=== PATIENT | male | born 1950 | race Caucasian/White ===

== ENCOUNTER → 2017-08-01 | Outpatient (CLI) | payer OTHER ==
[2017-08-01 20:12] LABS: ALT 37 U/L (21-72); AST 27 U/L (17-59); Alkaline Phosphatase 119 U/L (38-126); Anion Gap 12 mmol/L; Blood Urea Nitrogen 15 mg/dL (9-20); Calcium 9.6 mg/dL (8.4-10.2); Carbon Dioxide 23 mmol/L (22-30); Chloride 104 mmol/L (98-107); Cholesterol 233 mg/dL (<200); Glucose 92 mg/dL (74-99); HDL Cholesterol 42 mg/dL (40-60); Non-African American GFR(MDRD) >60 (>60 ml/min/1.73 sqM); Potassium 4.6 mmol/L (3.5-5.1); Sodium 139 mmol/L (137-145); Total Bilirubin 0.7 mg/dL (0.2-1.3); Total Protein 7.1 g/dL (6.3-8.2)
== END ==
LOC: MMGSC 09:52
PROVIDERS: ATTEND Family Medicine
DX: E87.5 Hyperkalemia (principal); E78.00 Pure hypercholesterolemia, unspecified
CPT/HCPCS: 36415; 80053; 80061

== ENCOUNTER → 2019-04-18 | Outpatient (CLI) | payer MEDICARE ==
--- NOTE | 2019-04-19 13:50 | ECHOF ---
Referral Reason:R01.1 Cardiac murmur, unspecified MEASUREMENTS -------- HEIGHT: 172.7 cm WEIGHT: 97.5 kg BP: IVSd: 1.2 cm (0.6 - 1.1) LVIDd: 3.8 cm (3.9 - 5.3) LVPWd: 1.4 cm (0.6 - 1.1) IVSs: 1.5 cm LVIDs: 2.2 cm LVPWs: 2.0 cm LAESV Index (A-L): 24.99 ml/m Ao Diam: 2.9 cm (2.0 - 3.7) AV Cusp: 1.4 cm (1.5 - 2.6) LA Diam: 2.1 cm (2.7 - 3.8) EPSS: 1.6 cm MV E Koffi: 0.85 m/s MV DecT: 329 ms MV A Koffi: 1.03 m/s MV E/A Ratio: 0.82 AR PHT: 435 ms RAP: 5.00 mmHg RVSP: 36.70 mmHg MV EF SLOPE: 104.15 mm/s (70 - 150) MV EXCURSION: 1.59 cm (> 18.000) FINDINGS -------- Sinus rhythm. This was a technically adequate study. The left ventricular size is normal. There is mild concentric left ventricular hypertrophy. Overa ll left ventricular systolic function is normal with, an EF between 55 - 60 %. The right ventricle is normal in size. The left atrial size is normal. The right atrial size is normal. Interatrial and interventricular septum intact. The aortic valve is trileaflet and appears structurally normal. Trace amount of aortic regurgitatio n. The mitral valve is normal. There is trace mitral regurgitation. Mild tricuspid regurgitation present. There is mild pulmonary hypertension. The right ventricular systolic pressure, as measured by Doppler, is 36.70mmHg. There is no pulmonic regurgitation present. The aortic root size is normal. The inferior vena cava was not well visualized. There is no pericardial effusion. CONCLUSIONS -------- 1. Sinus rhythm. 2. This was a technically adequate study. 3. The left ventricular size is normal. 4. There is mild concentric left ventricular hypertrophy. 5. Overall left ventricular systolic function is normal with, an EF between 55 - 60 %. 6. The right ventricle is normal in size. 7. The left atrial size is normal. 8. The right atrial size is normal. 9. Interatrial and interventricular septum intact. 10. The aortic valve is trileaflet and appears structurally normal. 11. Trace amount of aortic regurgitation. 12. The mitral valve is normal. 13. There is trace mitral regurgitation. 14. Mild tricuspid regurgitation present. 15. There is mild pulmonary hypertension. 16. The right ventricular systolic pressure, as measured by Doppler, is 36.70mmHg. 17. There is no pulmonic regurgitation present. 18. The aortic root size is normal. 19. The inferior vena cava was not well visualized. 20. There is no pericardial effusion. BUS ESCORT: Roxana Shi RDCS
== END | disposition home or self-care (01) ==
LOC: RADECHMAIN 13:04
PROVIDERS: ATTEND Family Medicine
DX: I07.1 Rheumatic tricuspid insufficiency (principal); I27.20 Pulmonary hypertension, unspecified
CPT/HCPCS: 93306

== ENCOUNTER → 2020-11-05 | Outpatient (CLI) | payer MEDICARE ==
--- NOTE | 2020-11-05 15:16 | CTL ---
EXAMINATION TYPE: CT Low Dose Lung DATE OF EXAM ORDERED: 11/05/2020 HISTORY: Personal history of tobacco use, nicotine. Lung cancer screening CT DLP: 126.[address] CTDI: 3.3 mGy Automated exposure control for dose reduction was used. SCREENING VISIT: Initial COMPARISON: None TECHNIQUE: Low dose computed tomography scan was performed through the chest at 1 mm thick sections a nd reconstructed images in the coronal plane at [address] DIAGNOSTIC QUALITY: Satisfactory FINDINGS: LUNG NODULES: Present, detailed below: There is an irregular density in the right middle lobe measuring 2.2 x 1.7 cm. Series 4 image 204 thi s area is suspicious and PET CT is recommended for additional workup. LUNGS: COPD: Severity: None Fibrosis: Severity: None Lymph nodes: There is a 1.0 cm pretracheal lymph node present. Other findings: None RIGHT PLEURAL SPACE: Effusion: None Calcification: None Thickening: None Pneumothorax: None LEFT PLEURAL SPACE: Effusion: None Calcification: None Thickening: None Pneumothorax: None HEART: Heart Size: Normal Coronary calcification: Mild to moderate Pericardial effusion: None OTHER FINDINGS: Upper abdomen: Cholelithiasis Bony thorax: Normal Supraclavicular region: Normal Other: Ascending thoracic aorta at the level the main pulmonary artery measures 3.9 cm. The main pul monary artery at the bifurcation measures 2.2 cm. IMPRESSION: 1. No suspicious spiculated mass right middle lobe. 2. Enlarged 1.0 cm lymph node pretracheal space FOLLOW UP CT CHEST RECOMMENDATION: PET/CT recommended for additional workup for possible neoplasm. CT LUNG RAD: 4B
== END | disposition home or self-care (01) ==
LOC: RADCTMAIN 13:51
PROVIDERS: ATTEND Family Medicine
DX: Z12.2 Encounter for screening for malignant neoplasm of respiratory organs (principal); F17.210 Nicotine dependence, cigarettes, uncomplicated

== ENCOUNTER → 2020-12-04 | Outpatient (CLI) | payer MEDICARE ==
--- NOTE | 2020-12-07 07:41 | PE ---
EXAMINATION TYPE: PET CT fusion skull to thigh DATE OF EXAM: 12/04/2020 COMPARISON: CT low-dose lung screening CT November 05, 2020 HISTORY: Solitary pulmonary nodule, abnormal CT. TECHNIQUE: Following the intravenous administration of 10.414 mCi of F-18 FDG, whole body images are performed from the skull base to the midthigh. Images are reviewed on the computer in the coronal, axial, and sagittal planes. Reconstructed rotating images are created on independent workstation and reviewed on the computer. A localization and attenuation correction CT is performed in conjunction with the PET scan. Blood glucose level equals 101 SCAN: Initial Scan FINDINGS: SKULL BASE AND NECK: No areas of suspicious hypermetabolic uptake. CHEST, MEDIASTINUM, AND HILAR REGION: Corresponding to recent CT there is persistent area of nodule o r nodular consolidation measuring 1.8 x 1.6 cm axial image 103, the area is ametabolic and low dense. Significant respiratory motion artifact degradation. No suspicious hypermetabolic uptake. ABDOMEN AND PELVIS: No adrenal masses. No suspicious hypermetabolic uptake. OSSEOUS STRUCTURES: No suspicious hypermetabolic uptake. OTHER CT: Moderate to severe calcified plaque bilateral carotid bulb level right greater than left, c onsider carotid ultrasound follow-up. At least moderate 3 vessel coronary artery calcification with possible stent in the right coronary ar cas distribution. Significant bilateral subareolar gynecomastia. Dependent small gallstone in gallbladder. Scattered diverticula in the left and sigmoid colon. Modera te calcified plaque of the abdominal aorta extends into iliac branch vessels. Enlarged prostate gland consistent with BPH. Moderate disc space narrowing and vacuum disc phenomenon L5-S1 level. IMPRESSION: No suspicious hypermetabolic uptake. Consider short term CT follow-up in 6-12 months time to document stability of 1.7 cm nodule or nodular consolidation right middle lobe.
== END | disposition home or self-care (01) ==
LOC: RADPETMAIN 14:06
PROVIDERS: ATTEND Family Medicine
DX: R91.1 Solitary pulmonary nodule (principal); R91.8 Other nonspecific abnormal finding of lung field
CPT/HCPCS: 78815; A9552

== ENCOUNTER → 2021-06-04 | Outpatient (CLI) | payer MEDICARE ==
[2021-06-04 10:25] LABS: African American GFR (CKD) >90 (>60 ml/min/1.73 sqM); Blood Urea Nitrogen 16 mg/dL (9-20); Non-African American GFR(CKD) >90 (>60 ml/min/1.73 sqM)
--- NOTE | 2021-06-04 12:04 | CT ---
EXAMINATION TYPE: CT chest w con DATE OF EXAM: 06/04/2021 COMPARISON: 12/04/2020 HISTORY: Pulmonary Nodule CT DLP: 538 mGycm Automated exposure control for dose reduction was used. TECHNIQUE: CT scan of the chest is performed with IV Contrast, patient injected with 100 mL of Isovue 300. MIP Images are created on CT scanner and reviewed. 3D reconstructed images are created on an independent workstation and reviewed. FINDINGS: LUNGS: There is a 1.8 x 1.4 cm right middle lobe lung mass. Previously measured 1.8 x 1.6 cm. MEDIASTINUM: There are no greater than 1 cm hilar or mediastinal lymph nodes. No pericardial effusi on is seen. Coronary artery calcification noted. OTHER: Bilateral gynecomastia noted. Hypertrophic and degenerative change of the spine. IMPRESSION: 1. Stable 1.8 x 1.4 cm lobulated nodule in the right middle lobe unchanged from prior exam.
== END | disposition home or self-care (01) ==
LOC: RADCTMAIN 09:42
PROVIDERS: ATTEND Family Medicine
DX: R91.1 Solitary pulmonary nodule (principal)
CPT/HCPCS: 82565; 84520; 71260; 36415; Q9967

== ENCOUNTER 2023-06-02 12:52 | Day surgery (SDC) | payer MEDICARE ==
[2023-05-31 15:31] VITALS: BMI 25.0
[2023-06-02] MEDS ORDERED: LACTATED RINGERS 1,000 ML IV SCH (13:28)
[2023-06-02] MEDS ORDERED: LACTATED RINGERS 1,000 ML IV ONE (13:38)
[2023-06-02 13:44] VITALS: TEMP 97
[2023-06-02] MEDS ORDERED: LIDOCAINE 2% INJ 20 MG/ML (2 ML VIAL) ONE (15:08)
[2023-06-02] MEDS ORDERED: PROPOFOL 10 MG/ML 20 ML VIAL IV ONE (15:08)
--- NOTE | 2023-06-02 15:24 | P.PCN ---
Date of Procedure: 06/02/23 Procedure(s) Performed: BRIEF HISTORY: Patient is a 72-year-old pleasant white male scheduled for an elective colonoscopy as a part of evaluation of prior history of colon polyps. PROCEDURE PERFORMED: Colonoscopy. PREOPERATIVE DIAGNOSIS: History of colon polyps. IV sedation per Anesthesia. PROCEDURE: After informed consent was obtained, the patient, was brought into the endoscopy unit. IV sedation was administered by Anesthesia under continuous monitoring. Digital rectal examination was normal. Initially the Olympus CF-160 flexible video colonoscope was then inserted in the rectum, gradually advanced into the cecum without any difficulty. Careful examination was performed as the scope was gradually being withdrawn. Ileocecal valve and the appendiceal orifice were visualized and appeared normal. Prep was excellent. Mucosa of the cecum, ascending colon, transverse colon, descending colon, sigmoid colon, and rectum appeared normal. Scattered sigmoid diverticulosis. Retroflexion was performed in the rectum and grade 2 internal hemorrhoids were seen. The patient tolerated the procedure well. IMPRESSION: Normal-appearing colon from rectum to cecum with no evidence of colorectal neoplasia Scattered small diverticulosis Small internal hemorrhoids. RECOMMENDATIONS: Findings of this examination were discussed with the patient as well as his family. He was advised to be a high-fiber diet and take fiber supplements a regular basis. Recommend repeat screening colonoscopy in 10 y ears..
[2023-06-02 15:48] VITALS: BP 130/77; PULSE 98; RESP 16
== END 2023-06-02 16:32 | disposition home or self-care (01) ==
LOC: ORWHC2ENDO 12:52
PROVIDERS: ATTEND Internal Medicine Gastroenterology
DX: Z12.11 Encounter for screening for malignant neoplasm of colon (principal); Z86.010 Personal history of colon polyps; K57.30 Diverticulosis of large intestine without perforation or abscess without bleeding; K64.1 Second degree hemorrhoids; I10 Essential (primary) hypertension; E78.5 Hyperlipidemia, unspecified; F17.200 Nicotine dependence, unspecified, uncomplicated; N42.9 Disorder of prostate, unspecified; Z79.82 Long term (current) use of aspirin; Z79.899 Other long term (current) drug therapy
CPT/HCPCS: 45378; J2704; J2001

== ENCOUNTER → 2023-08-24 | Outpatient (CLI) | payer MEDICARE ==
--- NOTE | 2023-08-24 14:11 | CTL ---
EXAMINATION TYPE: CT Low Dose Lung DATE OF EXAM ORDERED: 08/24/2023 HISTORY: . Lung cancer screening CT DLP: 86.[address] CTDI: 2.1 mGy Automated exposure control for dose reduction was used. SCREENING VISIT: COMPARISON: The 2521, 06/04/2021, 11/05/2020 TECHNIQUE: Low dose computed tomography scan was performed through the chest at 1 mm thick sections a nd reconstructed images in multiple planes at 1 mm and [address] DIAGNOSTIC QUALITY: Satisfactory FINDINGS: There is a 2 mm subpleural right apical lung nodule stable. Within the right upper lobe on axial image 162 series 4 there is a 2. There is an area of 7 mm linear density right upper lobe stable from prior exam. There remains a partially cystic nodular density right middle lobe measuring 2 x 1.7 cm. No pleural effusion or focal pneumonia. No pneumothorax. Mild basilar bronchiectasis. Assessment for adenopathy limited by noncontrast technique. No obvious pathologic adenopathy. Mild emphysematous changes are stable. Atherosclerotic change of the aorta with no evidence of aneurysm. There is mild coronary artery calci fication. Cholelithiasis noted. Hypertrophic and degenerative changes of the spine. Small hiatal hernia. Bilate ral gynecomastia. IMPRESSION: 1. Stable 2 x 1.7 cm lobulated nodule right middle lobe unchanged from multiple prior exams. Nodules noted to be ametabolic previous PET CT scan 12/10. Recommend annual follow-up in 12 months low-dose sc reening CT scan. 2. Stable emphysematous changes. 3. Cholelithiasis. 4. Small hiatal hernia. 5. Coronary artery calcification. CT LUNG RAD AND CT CHEST RECOMMENDATION: Lung-Rad 2 Benign Appearance or Behavior: Continue annual sc reening with LDCT in 12 months.
== END | disposition home or self-care (01) ==
LOC: RADCTMAIN 12:31
PROVIDERS: ATTEND Family Medicine
DX: Z12.2 Encounter for screening for malignant neoplasm of respiratory organs (principal); F17.210 Nicotine dependence, cigarettes, uncomplicated; J43.9 Emphysema, unspecified; K80.20 Calculus of gallbladder without cholecystitis without obstruction; K44.9 Diaphragmatic hernia without obstruction or gangrene; I25.10 Atherosclerotic heart disease of native coronary artery without angina pectoris; R91.8 Other nonspecific abnormal finding of lung field
CPT/HCPCS: 71271

== ENCOUNTER → 2024-09-03 | Outpatient (CLI) | payer MEDICARE ==
--- NOTE | 2024-09-05 14:56 | CTL ---
EXAMINATION TYPE: CT Low Dose Lung DATE OF EXAM ORDERED: 09/03/2024 HISTORY: Nicotine dependence, current smoker, 44 pack-year history. Lung cancer screening CT DLP: 112.[address] CTDI: 3.00 mGy Automated exposure control for dose reduction was used. SCREENING VISIT: Fourth screening visit COMPARISON: CT Low Dose Lung 08/24/2023, 07/14/2022, 11/05/2020, PET CT 12/04/2020, CT chest 06/04/2021. TECHNIQUE: Low dose computed tomography scan was performed through the chest at 1 mm thick sections a nd reconstructed images in multiple planes at 1 mm and [address] DIAGNOSTIC QUALITY: Satisfactory FINDINGS: Nodules: Development of spiculated right middle lobe mass measuring 4.0 x 3.7 cm abutting the right major fiss ure (series 6, image 40). Previously cystic and nodular appearance measuring 2 x 1.7 cm. Stable subpl eural right apical 2 mm pulmonary nodule (series 6, image 23). Stable right upper lobe linear pulmonary density on the minor fissure. Favored to represent an intraf issural lymph node (series 6, image 34). LUNGS: COPD: Severity: Mild Fibrosis: Severity: None Lymph nodes: Stable right carinal 9 mm short axis lymph node (series 5 image 24). Other findings: None RIGHT PLEURAL SPACE: Effusion: None Calcification: None Thickening: None Pneumothorax: None LEFT PLEURAL SPACE: Effusion: None Calcification: None Thickening: None Pneumothorax: None HEART: Heart Size: Normal Coronary Calcification: Mild Pericardial Effusion: None OTHER FINDINGS: Upper abdomen: Tiny hiatal hernia. Cholelithiasis. Bony thorax: Hypertrophic and degenerative changes of the spine. Supraclavicular region: None Other: Moderate bilateral gynecomastia. IMPRESSION: Development of spiculated right middle lobe mass measuring 4.0 x 3.7 cm abutting the right major fiss ure. Previously 2 x 1.7 cm and partially cystic. Highly suspicious for primary lung malignancy until proven otherwise. Remaining nodules are stable. CT LUNG RAD AND CT CHEST RECOMMENDATION: Lung-Rad 4B or 4X Very Suspicious: Follow-up Chest CT with o r without contrast or PET/CT and/or tissue sampling. PET/CT may be used when there is a > 8 mm solid component. S Modifier (other clinically significant findings): None [facility], , 09/05/2024 12:22 PM
== END ==
LOC: RADCTMAIN 07:48
PROVIDERS: ATTEND Family Medicine
CPT/HCPCS: 71271

== ENCOUNTER → 2024-09-27 | Outpatient (CLI) | payer MEDICARE ==
--- NOTE | 2024-09-29 14:14 | PE ---
EXAMINATION TYPE: PET CT fusion skull to thigh DATE OF EXAM: 09/27/2024 CLINICAL INDICATION:Male, 74 years old with history of R91.8 LUNG MASS; TECHNIQUE: Following the intravenous administration of 11.25 mCi of F-18 FDG, whole body images are performed from the skull base to the midthigh. Images are reviewed on the computer in the coronal, axial, and sagittal planes. Reconstructed rotating images are created on independent workstation and reviewed on the computer. A non-contrast CT is performed in conjunction with the PET scan. Glucose level 95 mg/dL CT DLP: 466.97 mGycm, Automated exposure control for dose reduction was used. COMPARISON: CT 09/03/2024, PET/CT None, MRI: None FINDINGS: Mediastinal SUV mean is 2.1. Hepatic parenchyma SUV mean is 2.4. SKULL BASE AND NECK: * Left parotid gland lesion max SUV 15.5. * Small lesion in the right parotid gland also possible measuring Max SUV 3.4. * Measurements of the prior lesions are difficult without IV contrast * The lower left-sided uptake within the left neck max SUV 4.9. * Asymmetric uptake within the fossa of Rosenmuller./Posterior lateral pharyngeal recess max SUV 4.5 . CHEST, MEDIASTINUM, AND HILAR REGION: * Right upper lung mass measuring 34 x 29 mm Max SUV 21.7 * FDG avid right perihilar lymph nodes max SUV 4.3 measurements difficult without IV contrast. * Subcarinal lymph node max SUV 4.1. r measuring 8 mm in short axis * Right low paratracheal max SUV 3.8 measuring 10 mm ABDOMEN AND PELVIS: No suspicious radiotracer activity. MUSCULOSKELETAL STRUCTURES: No suspicious radiotracer activity. OTHER CT: * Bilateral gynecomastia. * Prostate gland is enlarged measuring up to 6.1 cm in transverse dimension. Scattered colonic diver ticula. Arthrosis course of the arterial vasculature. Small amount of fluid in the right inguinal can al. Bilateral hydroceles. * * * * IMPRESSION: 1. Right lung mass with likely metastatic disease to multiple mediastinal lymph nodes with which dem onstrate mild FDG uptake. 2. Asymmetric enlargement of the left parotid gland with bilateral foci within the parotid glands of uptake. Finding could represent Warthin gland tumors. Ultrasound imaging recommended of the left par otid gland with right sided comparison recommended. Comparisons with priors would be of benefit. 3. Mild uptake within the left posterior lateral recess of the pharynx. Consider direct visualizatio n. 4. Indeterminate left neck lymph node with mild uptake attention follow-up imaging. [facility], , 09/29/2024 2:12 PM
== END | disposition home or self-care (01) ==
LOC: RADPETMAIN 10:09
PROVIDERS: ATTEND Internal Medicine Critical Care Medicine
DX: R91.8 Other nonspecific abnormal finding of lung field (principal); R93.7 Abnormal findings on diagnostic imaging of other parts of musculoskeletal system
CPT/HCPCS: 78815; A9552

== ENCOUNTER 2024-10-03 10:21 | Day surgery (SDC) | payer MEDICARE ==
[~2024-10-03 10:21] MED LIST: LACTATED RINGERS 1,000 ML IV SCH; LIDOCAINE 1% (10MG/ML) FOR IV START INTRADERMA PRN
[2024-10-03] MEDS: LACTATED RINGERS 1,000 ML IV SCH (11:31)
[2024-10-03] MEDS: ONDANSETRON 4 MG/2 ML VIAL IVP STA (11:33)
[2024-10-03] MEDS: IV FLUID CONTINUATION 1,000 ML IV ONE (11:34)
[2024-10-03] MEDS: DEXAMETHASONE SOD PHOSPHATE 4 MG/ML 1 ML VIAL IVP STA (11:34)
--- NOTE | 2024-10-03 11:38 | CT ---
EXAMINATION TYPE: CT Chest wo ION protocol DATE OF EXAM: 10/03/2024 COMPARISON: 09/03/2024 CLINICAL INDICATION: Male, 74 years old with history of ion robot bronchoscopy; [facility], TECHNIQUE: CT scan of the thorax is performed without IV contrast. CT DLP: mGycm CT CTDI: mGy Automated exposure control for dose reduction was used. FINDINGS: Again identified is a 3.5 x 4.5 spiculated mass in the right middle lobe. There is a 10 mm satellite lesion immediately anterior to the mass. The left lung is clear. No pleural effusion or pneumothorax. The great vessels chest are normal. There is a mildly enlarged 11-12 mm short axis precarinal lymph node. The osseous structures are intact. Limited scanning through the upper abdomen reveals no gross abnorm ality with exception of a few small gallstones. Impression: 1. 3.5 x 4.5 spiculated mass in the right middle lobe highly suspicious for neoplasm. There is a smal l 10 mm satellite lesion. 2. Single mildly enlarged mediastinal lymph node. 3. No acute cardiopulmonary disease. 4. No focal osseous lesions. Follow-up recommendations for incidental pulmonary nodules are per [employer] or [employer]. [facility], , 10/03/2024 11:36 AM
[2024-10-03] MEDS ORDERED: NEOSTIGMINE 1 MG/ML 10 ML VIAL ONE (12:37)
[2024-10-03] MEDS ORDERED: ePHEDrine 50 MG/ML 1 ML VIAL ONE (12:37)
[2024-10-03] MEDS ORDERED: fentaNYL (PF) 50 MCG/ML 2 ML AMP ONE (12:37)
[2024-10-03] MEDS ORDERED: MIDAZOLAM 2 MG/2 ML VIAL ONE (12:37)
[2024-10-03] MEDS ORDERED: LIDOCAINE 1% INJ 10MG/ML (20 ML MDV) ONE (12:37)
[2024-10-03] MEDS ORDERED: SUCCINYLCHOLINE CHLORIDE 200 MG/10 ML VIAL IV ONE (12:37)
[2024-10-03] MEDS ORDERED: ROCURONIUM 10 MG/ML (5 ML VIAL) IV ONE (12:37)
[2024-10-03] MEDS ORDERED: GLYCOPYRROLATE 0.2 MG/ML 2 ML VIAL ONE (12:37)
[2024-10-03] MEDS ORDERED: PROPOFOL 10 MG/ML 20 ML VIAL IV ONE (12:37)
--- NOTE | 2024-10-03 13:49 | FL ---
Intraoperative/procedural fluoroscopic services were provided for bronchoscopy of the right middle lo be with biopsy. Total fluoroscopy time is 41 seconds with a total of 10 submitted images to PACS. Tot al DAP 3.0568 Gycm2. Please see the operative note for further details. [facility], , 10/03/2024 1:47 PM
--- NOTE | 2024-10-03 14:01 | P.PCN ---
Date of Procedure: 10/03/24 Operative Findings: Preoperative Diagnosis: Right middle lobe mass Mediastinal lymphadenopathy Postoperative Diagnosis: Right middle lobe mass Mediastinal lymphadenopathy Procedure(s) Performed: Flexible bronchoscopy Robotic-assisted bronchoscopy and radial ultrasound evaluation of the right umiddle lobe mass Robotic-assisted transbronchial needle aspirate, transbronchial biopsy, transbronchial brushing endobronchial lavage of a right middle lobe mass right middle lobe mass Endobronchial ultrasound transbronchial needle aspirate subcarinal and paratracheal lymph nodes Anesthesia: CHARLESA Surgeon: Eric Darden Estimated Blood Loss (ml): 0 Pathology: other Condition: stable Disposition: same day Operative Findings: A physical exam was performed. Informed consent was obtained from the patient after explaining all the risks (pneumothorax, life threatening bleeding, infection and adverse effects due to medications), benefits and alternatives to the procedure which the patient appeared to understand and so stated. The patient was connected to the monitoring devices. General anesthesia was induced and the patient was intubated by anesthesia. A final timeout was performed and the procedure confirmed by the attending staff bronchoscopist. The bronchoscope was inserted and the airway examined. Airway examination of the airway was essentially within normal limits. There was endobronchial tumor located in a subsegment of right middle lobe (medial segment). The flexible bronchoscope was removed and the robotic bronchoscope was inserted. Registration was completed. I next guided the robotic bronchoscope using the navigation system into the right middle lobe medial segment and later on into the various subsegment based on the guided navigation. Once in proper position, the bronchoscope was frozen. The radial EBUS probe was placed through the bronchoscope and confirmed abnormal u/s images vs normal lung. A needle was placed through the working channel and another fluoroscopic guidance, we sampled the area in the right middle lobe mass where the opacity was present. We then used a clot biopsy pattern with ultrasound confirmation for 2 additional passes with the needle. Following that, a forceps were next introduced through working channel and extended the appropriate distance and 3 transbronchial biopsies were performed using fluoroscopic guidance. The u/s probe was then reinserted to confirm location. When confirmed this process was repeated for a total of 8-10 transbronchial biopsies. After reassessment with EBUS, a brush was placed through the extendable working channel for 1 pass with fluoroscopic guidance. U/S evaluation was then used to confirm location. Following that, a total of 60 cc of saline was infused into the right upper lobe and approximately 8 to 10 cc of saline was aspirated and the bronchial lavage was sent for cytologic evaluation. Following that, I am bronchoscope was removed. The endobronchial ultrasound was inserted and a full evaluation of the mediastinal lymph nodes was done. Upon careful investigation with endobronchial ultrasound, a 10 mm right paratracheal lymph node (4R) was identified in addition to a 15 mm sub carinal (station 7) lymph nodes.. Using a 22-gauge position needle, transbronchial needle aspirate of the right paratracheal station lymph node was done and a total of 5 passes was taken without any complications. Also, transbronchial needle aspirate of station 7 lymph nodes was done, a total of 5 passes. Endobronchial ultrasound was removed. The rest of the midsternal stations showed no significant pathologic mediastinal lymphadenopathy. Flex. bronchoscope was inserted and regular suctioning was done. At the completion of the procedure, no residual secretions or bloody material within the airway. The bronchoscope was removed. The patient was extubated. RECOMMENDATIONS: Await pathology and cytology results The referring physician will be alerted to the results when available. The patient was advised to follow up with the referring physician with the biopsy results Patient will be called with results.
[2024-10-03 14:04] VITALS: TEMP 96.8
--- NOTE | 2024-10-03 14:22 | XR ---
EXAMINATION TYPE: XR chest 1V DATE OF EXAM: 10/03/2024 2:15 PM COMPARISON: Chest radiographs from 08/22/2024, CT chest 10/03/2024 TECHNIQUE: XR chest 1V Frontal view of the chest. CLINICAL INDICATION:Male, 74 years old with history of post bx; FINDINGS: Lungs/Pleura: There is no evidence of pleural effusion or pneumothorax. Right lower lung opacity is r edemonstrated corresponding to known biopsied pulmonary mass. There is some surrounding opacities lik harrison representing postprocedural hemorrhage. Pulmonary vascularity: Unremarkable. Heart/mediastinum: Cardiomediastinal silhouette is unremarkable. Atherosclerotic calcifications are seen in the aorta. Musculoskeletal: No acute osseous pathology. IMPRESSION: Postbiopsy changes of right lower lung known pulmonary mass. No evidence for pneumothorax. [facility], , 10/03/2024 2:20 PM
[2024-10-03 14:51] VITALS: BP 131/86; PULSE 61; RESP 18
== END 2024-10-03 15:17 | disposition home or self-care (01) ==
LOC: ORWHC2ENDO 10:21
PROVIDERS: ATTEND Internal Medicine Critical Care Medicine
DX: C34.2 Malignant neoplasm of middle lobe, bronchus or lung (principal); R59.0 Localized enlarged lymph nodes; I10 Essential (primary) hypertension; E78.5 Hyperlipidemia, unspecified; F17.210 Nicotine dependence, cigarettes, uncomplicated; Z79.82 Long term (current) use of aspirin; Z79.899 Other long term (current) drug therapy
CPT/HCPCS: 88108; 88305; 88173; 88342; 71045; 71250; 31628; 31629; 31623; 31624; 31652; J2250; J0330; J1100; J2710; J2405; J2003; J3010; J2704; J1596; S2900

== ENCOUNTER → 2024-10-28 | Outpatient (CLI) | payer MEDICARE ==
--- NOTE | 2024-10-28 09:28 | MR ---
EXAMINATION TYPE: MR brain wo/w con DATE OF EXAM: 10/28/2024 9:00 AM COMPARISON: 09/27/2024. 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 TECHNIQUE: Multi planar, multi sequence imaging was performed through the brain including: T1, T2, In version recovery, susceptibility weighted imaging and gradient echo imaging and Diffusion weighted im aging. The patient was then given intravenous contrast and multi planar, T1 fat-saturation images wer e obtained. IV Contrast: 7 mL Gadobutrol FINDINGS: Complex left superficial parotid gland lesion measuring 30 x 18 mm with internal septation. Postcontrast imaging doesn't demonstrate significant mural nodularity in the deep portion. No abnormal intra-axial enhancement to suggest metastatic disease to the brain. The jolly-white junctions, ventricular system, basal cisterns appear unremarkable. Diffusion-weighted imaging shows no evidence of restricted diffusion to suggest acute/subacute infarct. Intracranial ar terial flow voids are maintained. Midline structures show no abnormality. Scattered foci of high T2 s ignal intensity are seen within the periventricular white matter. The susceptibility weighted images do not reveal any evidence for micro-hemorrhage. After administration of gadolinium, no abnormal enha ncement is seen. The bone marrow signal is within normal limits. Paranasal sinuses and mastoid air cells: No significant paranasal sinus disease. Thickened adenoids b ilaterally. Visualized orbits: Orbital contents are intact. IMPRESSION: 1. No evidence for intra-axial metastatic disease. 2. No evidence for acute/subacute CVA. 3. Superficial left parotid gland lesion with thin septation mural nodularity. The deep portion wher e the mural nodularity is demonstrated FDG activity on PET on 09/27/2024. 4. Nonspecific white matter changes, likely related to small vessel ischemic disease. [facility], , 10/28/2024 9:26 AM
== END | disposition home or self-care (01) ==
LOC: RADMRIMAIN 08:02
PROVIDERS: ATTEND Internal Medicine
DX: C34.90 Malignant neoplasm of unspecified part of unspecified bronchus or lung (principal); R90.82 White matter disease, unspecified
CPT/HCPCS: 70553; A9585

== ENCOUNTER → 2025-03-13 | Outpatient (CLI) | payer MEDICARE ==
--- NOTE | 2025-03-16 00:23 | PE ---
EXAMINATION TYPE: PET CT fusion skull to thigh DATE OF EXAM: 03/13/2025 COMPARISON: Most recent prior PET/CT September 27, 2024 HISTORY: Lung cancer progress study TECHNIQUE: Following the intravenous administration of 10.13 mCi of F-18 FDG, whole body images are performed from the skull base to the midthigh. Images are reviewed on the computer in the coronal, a xial, and sagittal planes. Reconstructed rotating images are created on independent workstation and reviewed on the computer. A localization and attenuation correction CT is performed in conjunction with the PET scan. Blood glucose level equals 92 SCAN: Subsequent Scan FINDINGS: SKULL BASE AND NECK: No new areas of abnormal hypermetabolic uptake. Persistent abnormal hypermetabo lic uptake medial deep left parotid gland, max SUV is 12.4 versus 15.5 on prior. Slightly more promin ent additional subcentimeter hypermetabolic focus inferior left parotid gland axial image 32 with max SUV of 6.46 versus 4.9 on prior. CHEST, MEDIASTINUM, AND HILAR REGION: Now thick-walled cavitary lesion in the right middle lobe dimin ished in size measuring 2.2 x 1.4 cm axial images 113. No abnormal hypermetabolic uptake currently. N o new areas of abnormal hypermetabolic uptake. ABDOMEN AND PELVIS: Normal excretion redemonstrated. No new areas of abnormal hypermetabolic uptake. No hypermetabolic adrenal masses. OSSEOUS STRUCTURES: No new areas of abnormal hypermetabolic uptake. OTHER CT: Bilateral gynecomastia is redemonstrated. Moderate to severe three-vessel coronary artery c alcification is redemonstrated. Enlarged prostate consistent with BPH is redemonstrated. Bladder show s moderate concentric wall thickening currently. IMPRESSION: Complete positive treatment response of primary lung neoplasm. No new areas of abnormal h ypermetabolic uptake identified. Stable large left parotid lesion. More prominent hypermetabolic upta ke in the smaller subcentimeter inferior left parotid lesion is noted. Correlate clinically. [facility], , 03/16/2025 12:21 AM
== END | disposition home or self-care (01) ==
LOC: RADPETMAIN 11:35
PROVIDERS: ATTEND Family Medicine
DX: C34.2 Malignant neoplasm of middle lobe, bronchus or lung (principal); K11.8 Other diseases of salivary glands
CPT/HCPCS: 78815; A9552

== ENCOUNTER → 2025-03-21 | Outpatient (CLI) | payer MEDICARE ==
--- NOTE | 2025-03-21 11:38 | US ---
EXAMINATION TYPE: US venous doppler duplex UE BI DATE OF EXAM: 03/21/2025 COMPARISON: NONE CLINICAL INDICATION: Male, 74 years old with history of R22.32,R22.31 SWELLING,MASS AND LUMP; Pt havi ng redness to bilateral arms after chemo treatment for lung CA TECHNIQUE: Grayscale, color Doppler and spectral Doppler imaging of the upper extremity. SIDE PERFORMED: Bilateral VESSELS IMAGED: IJV Subclavian Vein Axilla Vein Brachial Vein(s) Radial Paired Veins Ulnar Paired Veins Cephalic Vein* Basilic Vein* (*superficial vessels) FINDINGS: Right Arm: Negative for DVT Left Arm: Negative for DVT Grayscale, color doppler, spectral doppler imaging performed of the deep veins of the upper extremiti es. Results called to Delfina at 's office at time of exam IMPRESSION: No evidence for DVT. [facility], , 03/21/2025 11:36 AM
== END | disposition home or self-care (01) ==
LOC: RADUSWWP 11:00
PROVIDERS: ATTEND Internal Medicine
DX: R22.31 Localized swelling, mass and lump, right upper limb (principal); R22.32 Localized swelling, mass and lump, left upper limb
CPT/HCPCS: 93970

== ENCOUNTER → 2025-04-09 | Outpatient (CLI) | payer MEDICARE ==
[2025-04-09 08:32] LABS: Partial Thromboplastin Time 22.2 sec (22.0-30.0); Prothrombin Time 10.9 sec (10.0-12.5)
[2025-04-09 10:31] LABS: HGB 11.9 g/dL (13.0-17.0); MCH 32.1 pg (27.0-32.0); MCV 94.3 FL (80.0-97.0); Mean Platelet Volume 11.5 FL (9.5-12.2); NRBC Per 100 WBC 0 X 10*3/uL (0.00-0.01); Platelet Count 180 X 10*3/uL (140-440); RBC 3.71 X 10*6/uL (4.40-5.60); RDW 14.9 % (11.5-14.5); WBC 6.12 X 10*3/uL (4.50-10.00)
[2025-04-09 10:32] LABS: Basophils # (A) 0.04 X 10*3/uL (0.00-0.10); Basophils % (A) 0.7 %; Eosinophils # (A) 0.21 X 10*3/uL (0.04-0.35); Eosinophils % (A) 3.4 %; Lymphocytes # (A) 1.48 X 10*3/uL (0.90-5.00); Lymphocytes % (A) 24.2 %; Monocytes # (A) 0.91 X 10*3/uL (0.20-1.00); Monocytes % (A) 14.9 %; Neutrophils # (A) 3.46 X 10*3/uL (1.80-7.70); Neutrophils % (A) 56.5 %
[2025-04-09 10:42] LABS: Blood Urea Nitrogen 24.9 mg/dL (9.0-27.0); Carbon Dioxide 28.3 mmol/L (21.6-31.8); Chloride 101 mmol/L (96-109); Glucose 105 mg/dL (70-110); Potassium 4.2 mmol/L (3.5-5.5); Sodium 138 mmol/L (135-145)
[2025-04-09 10:53] LABS: Appearance,Urine Clear (Clear); Bilirubin,Urine Negative (Negative); Blood,Urine Negative (Negative); Color,Urine Yellow (Yellow); Ketones,Urine Negative (Negative); Nitrite,Urine Negative (Negative); Specific Gravity,Urine 1.024 (1.001-1.030)
== END | disposition home or self-care (01) ==
LOC: LABWHC1 07:24
PROVIDERS: ATTEND Thoracic Surgery (Cardiothoracic Vascular Surgery)
DX: Z01.818 Encounter for other preprocedural examination (principal); C34.90 Malignant neoplasm of unspecified part of unspecified bronchus or lung; R00.1 Bradycardia, unspecified
CPT/HCPCS: 36415; 80051; 81003; 82565; 82947; 84520; 85025; 85610; 85730; 86850; 86900; 86901; 87086; 93005

== ENCOUNTER 2025-04-17 05:34 | Inpatient (IN) | payer MEDICARE ==
[~2025-04-17 05:34] MED LIST changes: -LACTATED RINGERS 1,000 ML IV SCH
[2025-04-17 06:46] LABS: Glucose,Whole Blood 117 mg/dL (70-110)
[2025-04-17] MEDS: MIDAZOLAM 2 MG/2 ML VIAL IV ONE (06:50)
[2025-04-17] MEDS: ONDANSETRON 4 MG/2 ML VIAL IVP ONE (06:52)
[2025-04-17] MEDS: DEXAMETHASONE SOD PHOSPHATE 4 MG/ML 1 ML VIAL IV ONE (06:52)
[2025-04-17] MEDS: LACTATED RINGERS 1,000 ML IV ONE ×2 (06:54)
[2025-04-17] MEDS: LACTATED RINGERS 1,000 ML IV SCH (06:54)
[2025-04-17] MEDS ORDERED: ROPIVACAINE 5 MG/ML 30 ML VIAL ONE (07:30)
[2025-04-17] MEDS ORDERED: HYDROmorphone (PF) 1 MG/ML ONE (07:30)
[2025-04-17] MEDS ORDERED: DEXAMETHASONE SOD PHOSPHATE 4 MG/ML 1 ML VIAL ONE (07:30)
[2025-04-17] MEDS ORDERED: LIDOCAINE 1% INJ 10MG/ML (20 ML MDV) ONE (07:30)
[2025-04-17] MEDS ORDERED: GLYCOPYRROLATE 0.2 MG/ML 2 ML VIAL ONE (07:30)
[2025-04-17] MEDS ORDERED: ROCURONIUM 10 MG/ML (5 ML VIAL) IV ONE (07:30)
[2025-04-17] MEDS ORDERED: PROPOFOL 10 MG/ML 20 ML VIAL IV ONE (07:30)
[2025-04-17] MEDS ORDERED: SUCCINYLCHOLINE CHLORIDE 200 MG/10 ML VIAL IV ONE (07:30)
[2025-04-17] MEDS ORDERED: SODIUM CHLORIDE 0.9% (PF) 10 ML VIAL ONE (07:30)
[2025-04-17] MEDS ORDERED: fentaNYL (PF) 50 MCG/ML 2 ML AMP ONE (07:30)
[2025-04-17] MEDS ORDERED: NEOSTIGMINE 1 MG/ML 10 ML VIAL ONE (07:30)
[2025-04-17] MEDS: ceFAZolin 2 GM in DEXTROSE 5% IN WATER 50 ML IVPB PRN (07:35)
[2025-04-17] MEDS: BUPIVACAINE (PF) 0.5% 30 ML VIAL SQ ONE (08:08)
--- NOTE | 2025-04-17 12:12 | P.OP ---
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 status post induction chemotherapy with clinical complete response Postoperative Diagnosis: Same Procedure(s) Performed: Robotic assisted thoracoscopic right middle lobectomy with mediastinal lymph node dissection Anesthesia: CORTES Surgeon: Ruben Garcia [employer]ac[employer] Worker Supervisor #1: Juan Alvarez (assistant paralegal) Estimated Blood Loss (ml): 100 IV fluids (ml): 1,000 Urine output (ml): 500 Pathology: other (Right middle lobe, lymph node stations R4, R8, R9, R10, R11, R12, level 7) Condition: stable Disposition: PACU Indications for Procedure: 74-year-old male previous smoker presented with a 4 cm mass in the right middle lobe. Robotic bronchoscopy and EBUS were performed. This confirmed the presence of squamous cell carcinoma in the right middle lobe. Level 7 lymph nodes were positive. Patient was staged as 3A. He underwent induction chemotherapy with near complete response by PET Criteria. Following this he was reevaluated and recommended to undergo middle lobectomy. Operative Findings: Greater fissure was near complete. Lesser fissure was incomplete. There was fairly extensive anthracotic lymphadenopathy which was quite inflamed and adherent in the hilum and mediastinal regions. There was no evidence of gross tumor. Description of Procedure: Patient was brought to the operating room and placed supine on the operating table. General anesthesia was induced. He was intubated with a double-lumen endotracheal tube and this was positioned with fiberoptic bronchoscopy. No endobronchial lesions were noted. Tube was secured and the patient was turned in the left lateral decubitus position. The right chest chest was sterilely prepped and draped after appropriate positioning for robotic lobectomy. Single lung ventilation was initiated and the initial incision was made in the ninth interspace in the anterior axillary line. 8 mm robotic port was placed here. After confirming presence in the pleural space, CO2 insufflation was begun. 212 mm ports were placed anterior and posterior to the initial port and a second 8 mm port was placed far posteriorly at the level of the superior segment of the lower lobe. Working port was placed at the diaphragm between the 2 most anterior incisions. Robot was docked. There was some adhesions at the apex which were taken down with electrocautery. The remainder of the lung was relatively free. Dissection was begun in the fissure. We were able to identify the pulmonary artery at the base of the fissure and carefully dissected further down into the greater fissure between the middle lobe and the lower lobe. A large branch of the pulmonary artery leading to the middle lobe was identified. It was surrounded by vascular adenopathy. We were able to skate sec this branch out and ligated and divided with a robotic vascular stapler. Attention was now directed to the inferior pulmonary ligament. It was taken down with electrocautery. Dissection was continued posteriorly at the reflection between the visceral and parietal pleura up to the level of the azygos vein. R9 R8 and level 7 lymph nodes were dissected out. These were sent for permanent section. Dissection was now brought anteriorly and a large branch of the superior pulmonary vein draining the middle lobe was dissected out ligated and divided with the robotic vascular stapler. Dissection was carried onto the bronchus. There was extensive adenopathy here which was quite vascular and planes were very difficult to dissected. We were ultimately able to connect this dissection from the anterior approach to the previous dissection in the base of the fissure where the PA branch had been divided. Once this had been accomplished we were able to complete the fissure with 2 firings of a robotic blue 30 mm stapler. We were now able to successfully dissect out the lymph nodes surrounding the bronchus and free up the middle lobe bronchus and encircled it and ligated and divided with the robotic green stapler. Dissection superiorly revealed 1 more branch of the pulmonary artery and 1 more branch of the pulmonary vein supplying and draining the middle lobe. These were separately ligated and divided with robotic vascular staplers. We were now able to complete the lesser fissure with multiple firings of a robotic blue 45 mm stapler. Middle lobe was now . Hilum was inspected. There was a R12 lymph node which was dissected out from between the lower lobe and the middle lobe. We also completed the R11 lymph node hilar dissection. Lobectomy specimen was placed in an Endo Catch bag and retracted inferiorly. The upper lobe was retracted inferiorly and the R10 and R4 lymph nodes were resected. Robot was now undocked. Working port incision was enlarged slightly which allowed the specimen to be removed in the Endo Catch bag and it was sent for permanent section. The chest was irrigated with warm water and the lung inflated. There was no evidence of significant air leak and the bronchus was without leak. 28 [place] chest tube was placed through separate stab incision and positioned posterior apically. It was connected to suction. There was secured with an 0 Ethibond suture. Lung was inflated under thoracoscopic visualization and the thoracoscope was removed. The incisions were closed with layers of Vicryl suture. Skin glue and dry sterile dressings were applied. The patient was turned supine extubated and transferred to recovery in stable condition.
--- NOTE | 2025-04-17 12:25 | XR ---
EXAMINATION TYPE: XR chest 1V portable DATE OF EXAM: 04/17/2025 12:18 PM COMPARISON: Chest radiographs from 10/03/2024 CLINICAL INDICATION: Male, 74 years old with history of Postop right middle lobectomy; [facility] TECHNIQUE: XR chest 1V portable Frontal view of the chest. FINDINGS: Lungs/Pleura: There is no evidence of pleural effusion, focal consolidation, or pneumothorax. Pulmonary vascularity: Unremarkable. Heart/mediastinum: Cardiomediastinal silhouette is unremarkable. Musculoskeletal: No acute osseous pathology. Other findings: None Lines/Tubes: Right thoracotomy tube is present without evidence of pneumothorax. IMPRESSION: Right thoracotomy tube without significant pneumothorax. [facility], , 04/17/2025 12:22 PM
[2025-04-17] MEDS: HYDROmorphone 0.5 MG/0.5 ML SYRINGE IVP PRN (12:27)
[2025-04-17] MEDS ORDERED: bisacodyL 10 MG SUPP RECTAL PRN (13:32)
[2025-04-17] MEDS ORDERED: METOCLOPRAMIDE 5 MG/ML 2 ML VIAL IVP PRN (13:32)
[2025-04-17] MEDS ORDERED: IPRATROPIUM-ALBUTEROL 3 ML NEB IH PRN (13:32)
[2025-04-17] MEDS: traMADol 50 MG TAB PO PRN (14:02)
[2025-04-17] MEDS: DEXTROSE 5%-0.45% NACL 1,000 ML IV SCH (14:06)
[2025-04-17] MEDS: KETOROLAC 15 MG/ML 1 ML VIAL IVP SCH (14:48)
[2025-04-17] MEDS: IPRATROPIUM-ALBUTEROL 3 ML NEB IH SCH (14:50)
--- NOTE | 2025-04-17 15:08 | P.CNPUL ---
History of Present Illness Consult date: 04/17/25 Requesting physician: Ruben Garcia Reason for consult: abnormal CXR/CT Chief complaint: Metastatic squamous cell carcinoma History of present illness: This is a very pleasant 74-year-old male patient who was diagnosed with 3A squamous cell carcinoma of the right middle lobe back in September 2024. He completed induction chemotherapy and his last chemotherapy was March 04, 2025. A repeat PET scan demonstrated complete response with no uptake in the subcarinal region and immediate minimal uptake in the lung with complete resolution of the previously observed lung mass. The patient still elected to undergo a right middle lobectomy to complete the staging and minimize the risk of recurrence. He was brought in electively today and did indeed undergo a robotic assisted right middle lobectomy with mediastinal lymph node dissection with Dr. Garcia. He is seen in consultation on the selective care unit. He is currently resting fairly comfortably in bed. Awake and alert in no acute distress. Right sided chest tube remains in place to Pleur-evac and low continuous wall suction at -20 cm of water. There is a positive bubbling leak present. Chest x-ray reveals right thoracotomy tube in place with no evidence of significant pneumothorax. He is maintaining O2 saturations up to 100% on 2 L/min per nasal cannula. He has been afebrile. Hemodynamically stable. Review of Systems REVIEW OF SYSTEMS: CONSTITUTIONAL: Denies any recent significant weight loss or weight gain. EYES: Denies change in vision. EARS, NOSE, MOUTH, THROAT: Denies headaches, denies sore throat. CARDIOVASCULAR: Denies chest pain, palpitations or syncopal episodes. RESPIRATORY: Denies shortness of breath, cough, congestion or hemoptysis. GASTROINTESTINAL: Denies change in appetite, denies abdominal pain GENITOURINARY: Denies hematuria, denies infections. MUSKULOSKELETAL: Right sided chest wall surgical site pain. INTEGUMENTARY: Denies rash, denies eczema. NEUROLOGICAL: Denies recent memory loss, no recent seizure activity. PSYCHIATRIC: Denies anxiety, denies depression. HEMATOLOGIC/LYMPHATIC: Denies anemia, denies enlarged lymph nodes. Past Medical History Past Medical History: Cancer, Hyperlipidemia, Hypertension, Prostate Disorder Additional Past Medical History / Comment(s): rt middle lobe lung cancer, received chemo -last tx 03-04-25,no radiation-follows w/ Dr F Alsawah,enlarged prostate History of Any Multi-Drug Resistant Organisms: MRSA Date of last positivie culture/infection: 06/29/2015 MDRO Source:: NOSE Past Surgical History: Tonsillectomy Additional Past Surgical History / Comment(s): COLONOSCOPY,bronchoscopy. SINUS SX Past Anesthesia/Blood Transfusion Reactions: No Reported Reaction Additional Past Anesthesia/Blood Transfusion Reaction / Comment(s): no hx blood transfusion Smoking Status: Former smoker - Past Family History Sister(s) Family Medical History: Cancer, Diabetes Mellitus Additional Family Medical History / Comment(s): breast CA,uterine CA,Lung and brain CA Medications and Allergies Home Medications Medication Instructions Recorded Confirmed Type Aspirin [Adult Low Dose Aspirin EC] 81 mg PO DAILY 05/31/23 04/17/25 History Lisinopril-Hctz 20-25 mg 1 tab PO QAM 05/31/23 04/17/25 History [Zestoretic 20-25] Metoprolol Tartrate [Lopressor] 100 mg PO BID 05/31/23 04/17/25 History Mv-Min/Folic/K1/Lycopen/Lutein 1 each PO DAILY 05/31/23 04/17/25 History [Centrum Silver Men Tablet] Rosuvastatin Calcium 5 mg PO DAILY 05/31/23 04/17/25 History Saw [place] 500 mg PO DAILY 05/31/23 04/17/25 History Hydrocortisone [Cortef] 10 mg PO BID 04/10/25 04/17/25 History Allergies Allergy/AdvReac Type Severity Reaction Status Date / Time No Known Allergies Allergy Verified 04/17/25 06:09 Physical Exam Vitals: Vital Signs Temp Pulse Resp BP BP Pulse Ox 04/17/25 13:30 64 14 138/78 100 04/17/25 13:15 68 20 138/91 99 04/17/25 13:00 61 13 129/85 100 04/17/25 12:45 64 14 137/93 97 04/17/25 12:30 64 14 128/80 134/61 97 04/17/25 12:15 60 14 127/94 127/55 97 04/17/25 12:00 66 16 94/67 98/66 97 04/17/25 11:51 96.9 F L 66 14 100/52 97 04/17/25 07:23 50 L 16 139/80 100 04/17/25 07:08 49 L 14 129/74 100 04/17/25 06:55 49 L 16 123/83 100 04/17/25 06:07 97 F L 51 L 16 134/62 99 Intake and Output 04/16/25 04/17/25 04/17/25 22:59 06:59 14:59 Intake Total 400 1050 Output Total 400 Balance 400 650 Intake: IV 400 1050 Output: Urine 300 Estimated Blood Loss 100 Other: Weight 78.5 kg GENERAL EXAM: Alert, very pleasant 74-year-old male patient, on 2 L nasal cannula, fairly comfortable in no apparent distress. HEAD: Normocephalic. EYES: Normal reaction of pupils, equal size. NOSE: Clear with pink turbinates. THROAT: No erythema or exudates. NECK: No masses, no JVD. CHEST: Right sided chest tube secured in place to Pleur-evac and wall suction. Positive leak. LUNGS: Equal air entry with no crackles, wheeze, rhonchi or dullness. CVS: S1 and S2 normal with no audible murmur, regular rhythm. ABDOMEN: No hepatosplenomegaly, normal bowel sounds, no guarding or rigidity. SPINE: No scoliosis or deformity SKIN: No rashes CENTRAL NERVOUS SYSTEM: No focal deficits, tone is normal in all 4 extremities. EXTREMITIES: There is no peripheral edema. No clubbing, no cyanosis. Peripheral pulses are intact. Results - Laboratory Findings Abnormal lab findings: Abnormal Labs 04/17/25 06:45 POC Glucose (mg/dL) 117 H - Diagnostic Findings Chest x-ray: image reviewed Assessment and Plan Assessment: Stage IIIa squamous cell carcinoma of the right middle lobe. Status post induction chemotherapy with good response. Status post right middle lobectomy with mediastinal lymph node dissection to complete the staging and minimize the risk of recurrence. Postoperative day #0 Chronic and ongoing tobacco dependence Hypertension Hyperlipidemia Plan: The patient was seen and evaluated Chest x-ray, labs and medications reviewed No significant pneumothorax Right sided chest tube remains in place to Pleur-evac Continue to wall suction -20 cm water Positive leak Educated regarding the use of the incentive spirometer Currently stable on 2 L nasal cannula Initiated on DuoNeb inhalations Continue to Perforomist inhalations Heparin for DVT prophylaxis On cefazolin per protocol Resume home medications We will continue to follow and make further recommendations based on his clinical status I have personally seen and examined the patient, performed the documentation and the assessment and plan as written. Number of minutes spent on the visit: 20 Dictation was produced using [employer] dictation software. Please excuse any grammatical, word or spelling errors. Time with Patient: Greater than 30
[2025-04-17] MEDS: ceFAZolin 2 GM in DEXTROSE 5% IN WATER 50 ML IVPB SCH (16:02)
[2025-04-17] MEDS: HEPARIN SODIUM,PORCINE 5,000 UNIT/ML 1 ML VIAL SQ SCH (16:03)
[2025-04-17] MEDS: droPERidol 2.5 MG/ML VIAL IVP ONE (19:22)
--- NOTE | 2025-04-17 19:45 | P.ANPRN ---
Procedure Note - Anesthesia - Invasive Line Right Arterial Line Time Out Performed: ([age] years 19-year-old female here) Date of Procedure: 04/17/25 Time of Procedure: 06:51 Location of Patient: PreOp Preparation: Sterile Prep, Sterile Dressing Arterial Line Location: Radial Ultrasound Used: No Purpose - Visualization and Identification of Vasculature: No Image Stored and Saved: No Narrative: Invasive line placement per sterile protocol utilized.
--- NOTE | 2025-04-17 19:45 | P.ANPRN ---
Procedure Note - Anesthesia - Nerve Block Performed Right Erector Spinae Single Time Out Performed: Yes Date of Procedure: 04/17/25 Procedure Start Time: :03 Procedure Stop Time: 07:06 Location of Patient: PreOp Indication: Acute Post-Operative Pain, Requested by Surgeon Sedation Type: Sedate with meaningful contact maintained Preparation: Sterile Prep Position: Sitting Needle Types: Pajunk Needle Gauge: 21 Ultrasound used to visualize needle placement: Yes Ultrasound used to observe medication spread: Yes Blood Aspirated: No Pain Paresthesia on Injection Noted: No Resistance on Injection: Normal Image Stored and Saved: Yes Events: Uneventful and Well Tolerated (Ropivacaine 0.5% 15 cc plus dexamethasone 4 mg plus normal saline 10 cc given at T6 on the right side)
[2025-04-17] MEDS: METOPROLOL TARTRATE 50 MG TAB PO SCH (19:48)
[2025-04-17] MEDS: ACETAMINOPHEN TAB 325 MG TAB PO PRN (21:06)
[2025-04-17] MEDS: FORMOTEROL FUMARATE 20 MCG/2 ML NEBU INHALATION SCH (21:38)
[2025-04-18 07:16] LABS: Basophils # (A) 0.03 10*3/uL (0.00-0.10); Basophils % (A) 0.3 %; Eosinophils # (A) 0.09 10*3/uL (0.04-0.35); Eosinophils % (A) 0.8 %; HCT 32.7 % (39.6-50.0); HGB 11.2 g/dL (13.0-17.0); Lymphocytes # (A) 1.34 10*3/uL (0.90-5.00); Lymphocytes % (A) 11.3 %; MCH 32.7 pg (27.0-32.0); MCHC 34.3 g/dL (32.0-37.0); MCV 95.3 fL (80.0-97.0); Mean Platelet Volume 11.6 fL (9.5-12.2); Monocytes # (A) 1.36 10*3/uL (0.20-1.00); Monocytes % (A) 11.5 %; Neutrophils % (A) 75.8 %; Platelet Count 194 10*3/uL (140-440); RBC 3.43 10*6/uL (4.40-5.60); RDW 13.2 % (11.5-14.5); WBC 11.86 10*3/uL (4.50-10.00)
[2025-04-18 07:38] LABS: African American GFR (CKD) >90 (>60 ml/min/1.73 sqM); Anion Gap 4 mmol/L; Blood Urea Nitrogen 25 mg/dL (9-20); Calcium 8.3 mg/dL (8.4-10.2); Carbon Dioxide 30 mmol/L (22-30); Chloride 96 mmol/L (98-107); Glucose 119 mg/dL (74-99); Non-African American GFR(CKD) 88 (>60 ml/min/1.73 sqM); Potassium 4.4 mmol/L (3.5-5.1); Sodium 130 mmol/L (137-145)
--- NOTE | 2025-04-18 08:01 | XR ---
EXAMINATION TYPE: XR chest 1V portable DATE OF EXAM: 04/18/2025 6:43 AM COMPARISON: 04/17/2025 CLINICAL INDICATION: Male, 74 years old with history of s/p right middle lobectomy, TECHNIQUE: XR chest 1V portable view(s) obtained. FINDINGS: The heart size is normal. The pulmonary vasculature is normal. Some atelectatic changes may be at the right costophrenic angle. Right-sided chest tube is present. Pneumothorax is not evident. Subcutaneous air is right neck. IMPRESSION: 1. Right-sided chest tube remains present. No pneumothorax evident. 2. Linear opacity right base may be some atelectasis. [facility], , 04/18/2025 7:59 AM
[2025-04-18] MEDS: ASPIRIN 81 MG PO SCH (08:15)
[2025-04-18] MEDS: MULTIVITAMINS, THERA 1 EACH TAB PO SCH (08:15)
[2025-04-18] MEDS: ATORVASTATIN 20 MG TAB PO SCH (08:15)
[2025-04-18] MEDS: METOPROLOL TARTRATE 50 MG TAB PO SCH (08:15)
[2025-04-18] MEDS: LISINOPRIL-HCTZ 20-25 MG 1 EACH TAB PO SCH (08:15)
--- NOTE | 2025-04-18 09:46 | P.PN ---
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 History of hypertension, hyperlipidemia, BPH, previous tobacco dependence POD #1 robotic assisted thoracoscopic right middle lobectomy with mediastinal lymph node dissection The patient was seen and examined this morning sitting up in bed in the cardiac stepdown unit in no acute distress. States pain is mostly controlled on current medication regimen. Remains in sinus bradycardia, hemodynamically stable. Currently on room air with oxygen saturation in the high 90s, able to achieve 1500 mL incentive spirometry. Right pleural chest tube present to continuous wall suction, 250 mL output since surgery, airleak present with speech and expiration. No other new concerns. Objective - Vital Signs Vital signs: Vital Signs Temp 98.1 F 04/18/25 07:37 Pulse 57 L 04/18/25 07:37 Resp 16 04/18/25 07:40 BP 135/84 04/18/25 07:37 Pulse Ox 97 04/18/25 07:37 FiO2 Intake & Output 04/17/25 04/18/25 04/18/25 18:59 06:59 18:59 Intake Total 1170 120 Output Total 400 525 Balance 770 -525 120 Weight 79.7 kg Intake: IV 1050 Oral 120 120 Output: Chest Tube Drainage 125 Chest Tube Right Lateral 125 Chest Urine 300 400 Estimated Blood Loss 100 Other: Voiding Method Indwelling Catheter Urinal - Exam CONSTITUTIONAL: Appears comfortable, cooperative, no acute distress RESPIRATORY: Lungs sounds diminished bilaterally. Respirations even, nonlabored. Currently on room air with oxygen saturation 100%. Able to achieve 1500 mL on incentive spirometry. Strong cough. CARDIOVASCULAR: S1, S2 present. Regular rate and rhythm, sinus bradycardia on telemetry. Palpable peripheral pulses bilaterally. No edema present. No calf pain or tenderness noted. SCDs present. GASTROINTESTINAL: Abdomen soft, nontender, nondistended. Active bowel sounds present 4 quadrants. Tolerating diet. Positive flatus GENITOURINARY: [place] discontinued this morning, due to void INTEGUMENTARY: Skin is warm and dry with evidence of good perfusion. Thoracic incision well approximated and covered with dry intact dressing. NEUROLOGIC: Cranial nerves II through XII intact MUSKULOSKELETAL: Able to move all extremities, strength equal bilaterally, gait normal PSYCHIATRIC: Alert and oriented to person place and time, appropriate affect, intact judgment and insight INVASIVE LINES AND TUBES: Right pleural chest tubes present and connected to wall suction, intermittent air leak present with talking/expiration/coughing, 95 mL serosanguineous drainage overnight, 250 mL since surgery - Allied health notes Allied health notes reviewed: nursing - Labs CBC & Chem 7: 04/18/25 06:46 04/18/25 06:46 Labs: Abnormal Lab Results - Last 24 Hours (Table) 04/18/25 04/18/25 Range/Units 06:46 06:46 WBC 11.86 H (4.50-10.00) 10*3/uL RBC 3.43 L (4.40-5.60) 10*6/uL Hgb 11.2 L (13.0-17.0) g/dL Hct 32.7 L (39.6-50.0) % MCH 32.7 H (27.0-32.0) pg Neutrophils # 9.00 H (1.80-7.70) 10*3/uL Monocytes # 1.36 H (0.20-1.00) 10*3/uL Sodium 130 L (137-145) mmol/L Chloride 96 L (98-107) mmol/L BUN 25 H (9-20) mg/dL Glucose 119 H (74-99) mg/dL Calcium 8.3 L (8.4-10.2) mg/dL - Imaging and Cardiology Chest x-ray: report reviewed, image reviewed Assessment and Plan Assessment: 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
--- NOTE | 2025-04-18 11:35 | P.PN ---
Subjective Progress Note Date: 04/18/25 Principal diagnosis: Lung cancer. 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 He completed induction chemotherapy and his last chemotherapy was March 04, 2025. A repeat PET scan demonstrated complete response with no uptake in the subcarinal region and immediate minimal uptake in the lung with complete resolution of the previously observed lung mass. The patient still elected to undergo a right middle lobectomy to complete the staging and minimize the risk of recurrence. He was brought in electively today and did indeed undergo a robotic assisted right middle lobectomy with mediastinal lymph node dissection with Dr. Garcia. He is seen in consultation on the selective care unit. He is currently resting fairly comfortably in bed. Awake and alert in no acute dis tress. Right sided chest tube remains in place to Pleur-evac and low continuous wall suction at -20 cm of water. There is a positive bubbling leak present. Chest x-ray reveals right thoracotomy tube in place with no evidence of significant pneumothorax. He is maintaining O2 saturations up to 100% on 2 L/min per nasal cannula. He has been afebrile. Hemodynamically stable. Progress note dated 2024. 74-year-old male who was seen yesterday in consultation. Please see my note above. He is postoperative day #1, status post right middle lobectomy. The patient seems to be doing relatively well. He seen today in room 354. He is on room air. No IV fluids. He does have a small leak from the right sided chest tube. Current laboratory data includes a white count of 1.9, hemoglobin 11.2, hematocrit 32.7, and platelet count 194,000. Sodium 130, potassium 4.4, chloride 96, CO2 30, BUN 25, creatinine 0.81. Glucose is 119. Calcium is 8.3. Chest x-ray shows a right-sided chest tube, no pneumothorax. Objective - Vital Signs Vital signs: Vital Signs Temp 98.1 F 04/18/25 07:37 Pulse 57 L 04/18/25 07:37 Resp 16 04/18/25 07:40 BP 135/84 04/18/25 07:37 Pulse Ox 97 04/18/25 07:37 FiO2 Intake & Output 04/17/25 04/18/25 04/18/25 18:59 06:59 18:59 Intake Total 1170 120 Output Total 400 525 Balance 770 -525 120 Weight 79.7 kg Intake: IV 1050 Oral 120 120 Output: Chest Tube Drainage 125 Chest Tube Right Lateral 125 Chest Urine 300 400 Estimated Blood Loss 100 Other: Voiding Method Indwelling Catheter Urinal - Exam No acute distress, oriented 3. Currently on room air. HEENT examination is grossly unremarkable. Mucous membranes are moist. No oral lesions. Neck supple. Full range of motion. No adenopathy thyromegaly or neck vein distention. Cardiovascular examination reveals regular rhythm rate. S1-S2 normal. No S3 or S4. No discernible murmur noted. Lungs reveal mostly clear breath sounds. Minimal rhonchi. No wheezes or crackles. Right-sided chest tube is noted. Abdomen soft bowel sounds are heard. No masses or tenderness. Extremities are intact. No cyanosis clubbing or edema. Skin is without rash or lesion. Neurologic examination is brief but nonfocal. 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 Status post induction chemotherapy, S/P right middle lobectomy with mediastinal lymph node dissection, postoperative day #1. Chronic and ongoing tobacco dependence. Hypertension. Hyperlipidemia. Plan: Plan dated April 18, 2025. The patient is seen today in room 354. He continues on room air. Right-sided chest tube is in place. Labs, x-rays, and all medications are reviewed. We will continue to follow the patient, and make recommendations were appropriate. Prognosis is guarded. We encourage the patient to deep breathe, cough, clear secretions, and use the incentive spirometer, every hour. Dictation was produced using [employer] dictation software. Please excuse any grammatical, word or spelling errors. Time with Patient: Less than 30
--- NOTE | 2025-04-19 07:35 | XR ---
EXAMINATION TYPE: XR chest 2V DATE OF EXAM: 04/19/2025 7:28 AM COMPARISON: Chest radiographs from 04/18/2025 TECHNIQUE: XR chest 2V Frontal and lateral views of the chest. CLINICAL INDICATION:Male, 74 years old with history of Post lobectomy; FINDINGS: Lungs/Pleura: No pleural effusion. No discrete pneumothorax. Similar right basilar linear atelectasis . Pulmonary vascularity: Unremarkable. Heart/mediastinum: Cardiomediastinal silhouette is unremarkable. Atherosclerotic calcifications are seen in the aorta. Musculoskeletal: No acute osseous pathology. Other findings: Similar subcutaneous emphysema within the right supraclavicular region. Lines/Tubes: Stable position of right-sided chest tube with tip directed towards the lung apex. IMPRESSION: 1. Stable right-sided chest tube without discrete pneumothorax. 2. Similar right basilar linear atelectasis. [facility], , 04/19/2025 7:33 AM
--- NOTE | 2025-04-19 08:28 | P.PN ---
Subjective Progress Note Date: 04/19/25 Principal diagnosis: Stage IIIa squamous cell lung cancer right middle lobe status post induction chemotherapy with clinical complete response. History of hypertension, hyperlipidemia, BPH, previous tobacco dependence POD #2 robotic assisted thoracoscopic right middle lobectomy with mediastinal lymph node dissection The patient was seen and examined this morning sitting up in a recliner on the cardiac stepdown unit in no acute distress. States pain is mostly controlled on current medication regimen. Remains in sinus bradycardia, hemodynamically stable. Currently on room air with oxygen saturation in the 90s, able to achieve 1500 mL incentive spirometry. Right pleural [facility], 100 mL output in the last 24 hours, no airleak seen this morning. Patient has been ambulatory in the hallway without difficulty. No other new concerns. Objective - Vital Signs Vital signs: Vital Signs Temp 98.1 F 04/19/25 03:08 Pulse 82 04/19/25 06:30 Resp 18 04/19/25 03:08 BP 118/72 04/19/25 03:08 Pulse Ox 92 L 04/19/25 03:08 FiO2 21 04/18/25 11:30 Intake & Output 04/18/25 04/19/25 04/19/25 18:59 06:59 18:59 Intake Total 476 Output Total 200 800 Balance 276 -800 Weight 80 kg Intake: Oral 476 Output: Chest Tube Drainage 80 Chest Tube Right Lateral 80 Chest Drainage 20 Right Medial Chest 20 Urine 200 700 Other: Voiding Method Urinal # Voids 1 - Exam CONSTITUTIONAL: Appears comfortable, cooperative, no acute distress RESPIRATORY: Lungs sounds diminished bilaterally. Respirations even, nonlabored. Currently on room air with oxygen saturation 92%. Able to achieve 1500 mL on incentive spirometry. Strong cough. CARDIOVASCULAR: S1, S2 present. Regular rate and rhythm, sinus rhythm on telemetry. Palpable peripheral pulses bilaterally. No edema present. No calf pain or tenderness noted. SCDs present. GASTROINTESTINAL: Abdomen soft, nontender, nondistended. Active bowel sounds present 4 quadrants. Tolerating diet. Positive flatus GENITOURINARY: Continues to void INTEGUMENTARY: Skin is warm and dry with evidence of good perfusion. Thoracic incision well approximated and covered with dry intact dressing. NEUROLOGIC: Cranial nerves II through XII intact MUSKULOSKELETAL: Able to move all extremities, strength equal bilaterally, gait normal PSYCHIATRIC: Alert and oriented to person place and time, appropriate affect, intact judgment and insight INVASIVE LINES AND TUBES: Right pleural chest tubes [facility] to [facility], this morning, 100 mL serosanguineous drainage in the last 24 hours - Allied health notes Allied health notes reviewed: nursing - Labs CBC & Chem 7: 04/18/25 06:46 04/18/25 06:46 - Imaging and Cardiology Chest x-ray: report reviewed, image reviewed Assessment and Plan Assessment: Stage IIIa squamous cell lung cancer right middle lobe status post induction chemotherapy with clinical complete response, status post right middle lobectomy History of hypertension Hyperlipidemia BPH Previous tobacco dependence Plan: Continue to maximize medical therapy with home medication of aspirin, statin, beta-noemi, Zestoretic. Lopressor decreased yesterday due to bradycardia Will reevaluate for airleak in an hour, if no airleak will discontinue chest tube Increase activity, ambulate as tolerated Encourage incentive spirometry use, bronchodilators per pulmonology Pain control with current medication regimen Will monitor daily labs and x-rays If chest tube discontinued and patient remained stable, and x-ray is stable in the morning will DC to home tomorrow More recommendations to follow
[2025-04-19 09:10] LABS: HCT 34.9 % (39.6-50.0); HGB 11.6 g/dL (13.0-17.0); MCH 31.6 pg (27.0-32.0); MCHC 33.2 g/dL (32.0-37.0); MCV 95.1 fL (80.0-97.0); Mean Platelet Volume 11.3 fL (9.5-12.2); Platelet Count 196 10*3/uL (140-440); RBC 3.67 10*6/uL (4.40-5.60); RDW 13.3 % (11.5-14.5)
[2025-04-19 09:28] LABS: African American GFR (CKD) >90 (>60 ml/min/1.73 sqM); Anion Gap 9 mmol/L; Blood Urea Nitrogen 25 mg/dL (9-20); Calcium 8.5 mg/dL (8.4-10.2); Carbon Dioxide 27 mmol/L (22-30); Chloride 99 mmol/L (98-107); Glucose 115 mg/dL (74-99); Non-African American GFR(CKD) >90 (>60 ml/min/1.73 sqM); Potassium 3.3 mmol/L (3.5-5.1); Sodium 135 mmol/L (137-145)
[2025-04-19] MEDS: polyethylene glycoL 3350 17 GM POWD.PACK PO SCH (10:03)
[2025-04-19] MEDS: SENNOSIDES-DOCUSATE SODIUM 1 EACH TAB PO SCH (10:03)
--- NOTE | 2025-04-19 12:41 | P.PN ---
Subjective Progress Note Date: 04/19/25 Principal diagnosis: Lung cancer. 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 He completed induction chemotherapy and his last chemotherapy was March 04, 2025. A repeat PET scan demonstrated complete response with no uptake in the subcarinal region and immediate minimal uptake in the lung with complete resolution of the previously observed lung mass. The patient still elected to undergo a right middle lobectomy to complete the staging and minimize the risk of recurrence. He was brought in electively today and did indeed undergo a robotic assisted right middle lobectomy with mediastinal lymph node dissection with Dr. Garcia. He is seen in consultation on the selective care unit. He is currently resting fairly comfortably in bed. Awake and alert in no acute dis tress. Right sided chest tube remains in place to Pleur-evac and low continuous wall suction at -20 cm of water. There is a positive bubbling leak present. Chest x-ray reveals right thoracotomy tube in place with no evidence of significant pneumothorax. He is maintaining O2 saturations up to 100% on 2 L/min per nasal cannula. He has been afebrile. Hemodynamically stable. Progress note dated April 18, 2025. 74-year-old male who was seen yesterday in consultation. Please see my note above. He is postoperative day #1, status post right middle lobectomy. The patient seems to be doing relatively well. He seen today in room 354. He is on room air. No IV fluids. He does have a small leak from the right sided chest tube. Current laboratory data includes a white count of 1.9, hemoglobin 11.2, hematocrit 32.7, and platelet count 194,000. Sodium 130, potassium 4.4, chloride 96, CO2 30, BUN 25, creatinine 0.81. Glucose is 119. Calcium is 8.3. Chest x-ray shows a right-sided chest tube, no pneumothorax. Progress note dated April 19, 2025. 74-year-old male seen today in room 354. He is sitting in the chair next to the hospital bed. He is resting comfortably. He is awake and alert. No respiratory distress. Right chest tube remains in. There is a small leak. He is on room air. He is not receiving any IV fluids. Current laboratory data includes a white count 7.1, hemoglobin 1.6, hematocrit 34.9, and a normal platelet count. Sodium 135, potassium 3.3, chlorides 99, CO2 27, BUN 25, creatinine 0.71. Glucose 115. Calcium 8.5. Chest x-ray shows a stable right-sided chest tube, without obvious pneumothorax. Objective - Vital Signs Vital signs: Vital Signs Temp 97.9 F 04/19/25 09:51 Pulse 94 04/19/25 09:51 Resp 16 04/19/25 09:51 BP 132/85 04/19/25 09:51 Pulse Ox 99 04/19/25 09:51 FiO2 21 04/18/25 11:30 Intake & Output 04/18/25 04/19/25 04/19/25 18:59 06:59 18:59 Intake Total 476 Output Total 200 800 Balance 276 -800 Weight 80 kg Intake: Oral 476 Output: Chest Tube Drainage 80 Chest Tube Right Lateral 80 Chest Drainage 20 Right Medial Chest 20 Urine 200 700 Other: Voiding Method Urinal # Voids 1 - Exam No acute distress, oriented 3. Currently on room air. HEENT examination is grossly unremarkable. Mucous membranes are moist. No oral lesions. Neck supple. Full range of motion. No adenopathy thyromegaly or neck vein distention. Cardiovascular examination reveals regular rhythm rate. S1-S2 normal. No S3 or S4. No discernible murmur noted. Lungs reveal mostly clear breath sounds. Minimal rhonchi. No wheezes or crackles. Right-sided chest tube is noted. Abdomen soft bowel sounds are heard. No masses or tenderness. Extremities are intact. No cyanosis clubbing or edema. Skin is without rash or lesion. Neurologic examination is brief but nonfocal. 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 Status post induc tion chemotherapy, S/P right middle lobectomy with mediastinal lymph node dissection, postoperative day #2. Chronic and ongoing tobacco dependence. Hypertension. Hyperlipidemia. Plan: Plan dated April 18, 2025. The patient is seen today in room 354. He continues on room air. Right-sided chest tube is in place. Labs, x-rays, and all medications are reviewed. We will continue to follow the patient, and make recommendations were appropriate. Prognosis is guarded. We encourage the patient to deep breathe, cough, clear secretions, and use the incentive spirometer, every hour. Dictation was produced using [employer] software. Please excuse any grammatical, word or spelling errors. Plan dated April 19, 2025. The patient is seen today in room 354. He is sitting in the chair next to the hospital bed. He is on room air. He is not receiving any IV fluids. Right- sided chest tube remains in place. The patient does have a leak. Labs, x-rays, and medications are reviewed. We will continue to follow the patient, make recommendations. We recommend deep breathing, coughing, and clearing of secretions, and hourly use of the incentive spirometer. Overall prognosis remains guarded. Dictation was produced using [employer] software. Please excuse any grammatical, word or spelling errors. Time with Patient: Less than 30
[2025-04-19] MEDS: BISMUTH SUBSALICYLATE 4,192 MG/240 ML BOTTLE PO SCH (17:46)
--- NOTE | 2025-04-20 07:30 | XR ---
EXAMINATION TYPE: XR chest 2V DATE OF EXAM: 04/20/2025 7:26 AM COMPARISON: Chest radiographs from 04/19/2025 TECHNIQUE: XR chest 2V Frontal and lateral views of the chest. CLINICAL INDICATION:Male, 74 years old with history of Post lobectomy; FINDINGS: Lungs/Pleura: No pleural effusion. No discrete pneumothorax. Similar right basilar linear atelectasis . Pulmonary vascularity: Unremarkable. Heart/mediastinum: Cardiomediastinal silhouette is unremarkable. Atherosclerotic calcifications are seen in the aorta. Musculoskeletal: Multiple level degenerative disc disease changes seen throughout the spine. Other findings: Similar subcutaneous emphysema within the right supraclavicular region. Lines/Tubes: Stable position of right-sided chest tube with tip directed towards the lung apex. IMPRESSION: 1. Stable right-sided chest tube without discrete pneumothorax. 2. Similar right basilar linear atelectasis. [facility], , 04/20/2025 7:27 AM
[2025-04-20 07:45] LABS: HCT 33.1 % (39.6-50.0); HGB 11.3 g/dL (13.0-17.0); MCH 32.4 pg (27.0-32.0); MCHC 34.1 g/dL (32.0-37.0); MCV 94.8 fL (80.0-97.0); Mean Platelet Volume 11.3 fL (9.5-12.2); Platelet Count 198 10*3/uL (140-440); RBC 3.49 10*6/uL (4.40-5.60); RDW 13.2 % (11.5-14.5); WBC 7.31 10*3/uL (4.50-10.00)
[2025-04-20 08:04] LABS: Anion Gap 6 mmol/L; Carbon Dioxide 28 mmol/L (22-30); Chloride 100 mmol/L (98-107); Glucose 100 mg/dL (74-99); Potassium 4.3 mmol/L (3.5-5.1); Sodium 134 mmol/L (137-145)
[2025-04-20 08:05] LABS: African American GFR (CKD) 75 (>60 ml/min/1.73 sqM); Blood Urea Nitrogen 31 mg/dL (9-20); Calcium 9.1 mg/dL (8.4-10.2); Non-African American GFR(CKD) 64 (>60 ml/min/1.73 sqM)
--- NOTE | 2025-04-20 08:05 | P.PN ---
Subjective Progress Note Date: 04/20/25 Principal diagnosis: Stage IIIa squamous cell lung cancer right middle lobe status post induction chemotherapy with clinical complete response. History of hypertension, hyperlipidemia, BPH, previous tobacco dependence POD #3 robotic assisted thoracoscopic right middle lobectomy with mediastinal lymph node dissection The patient was seen and examined this morning sitting up in a recliner on the cardiac stepdown unit in no acute distress. States pain is mostly controlled on current medication regimen. Remains in sinus rhythm, hemodynamically stable. Currently on room air with oxygen saturation in the high 90s, able to achieve 1500 mL incentive spirometry. Right pleural chest tube [facility], 50 mL output in the last 24 hours, airleak present with coughing. Patient has been ambulatory in the hallway without difficulty. Patient requesting to build to go home, discussed need for chest tube and remainder in the hospital while chest tube in place. No other new concerns. Objective - Vital Signs Vital signs: Vital Signs Temp 98.1 F 04/20/25 03:07 Pulse 61 04/20/25 03:07 Resp 22 04/20/25 03:07 BP 158/90 04/20/25 03:07 Pulse Ox 97 04/20/25 03:07 FiO2 21 04/18/25 11:30 Intake & Output 04/19/25 04/20/25 04/20/25 18:59 06:59 18:59 Intake Total 540 Output Total 460 Balance 540 -460 Weight 79.8 kg Intake: Oral 540 Output: Drainage 10 Right Medial Chest 10 Urine 450 Other: Voiding Method Urinal # Voids 1 - Exam CONSTITUTIONAL: Appears comfortable, cooperative, no acute distress RESPIRATORY: Lungs sounds diminished bilaterally. Respirations even, nonlabored. Currently on room air with oxygen saturation 97%. Able to achieve 1500 mL on incentive spirometry. Strong cough. CARDIOVASCULAR: S1, S2 present. Regular rate and rhythm, sinus rhythm on telemetry. Palpable peripheral pulses bilaterally. No edema present. No calf pain or tenderness noted. SCDs present. GASTROINTESTINAL: Abdomen soft, nontender, nondistended. Active bowel sounds present 4 quadrants. Tolerating diet. Positive bowel movement 04/19 GENITOURINARY: Continues to void INTEGUMENTARY: Skin is warm and dry with evidence of good perfusion. Thoracic incision well approximated and covered with dry intact dressing. NEUROLOGIC: Cranial nerves II through XII intact MUSKULOSKELETAL: Able to move all extremities, strength equal bilaterally, gait normal PSYCHIATRIC: Alert and oriented to person place and time, appropriate affect, intact judgment and insight INVASIVE LINES AND TUBES: Right pleural chest tubes present to waterseal, intermittent airleak present with coughing, 50 mL serosanguineous drainage in the last 24 hours - Allied health notes Allied health notes reviewed: nursing - Labs CBC & Chem 7: 04/20/25 06:58 04/19/25 08:27 Labs: Abnormal Lab Results - Last 24 Hours (Table) 04/19/25 04/19/25 04/20/25 Range/Units 08:27 08:27 06:58 RBC 3.67 L 3.49 L (4.40-5.60) 10*6/uL Hgb 11.6 L 11.3 L (13.0-17.0) g/dL Hct 34.9 L 33.1 L (39.6-50.0) % MCH 32.4 H (27.0-32.0) pg Sodium 135 L (137-145) mmol/L Potassium 3.3 L (3.5-5.1) mmol/L BUN 25 H (9-20) mg/dL Glucose 115 H (74-99) mg/dL - Imaging and Cardiology Chest x-ray: report reviewed, image reviewed Assessment and Plan Assessment: Stage IIIa squamous cell lung cancer right middle lobe status post induction chemotherapy with clinical complete response, status post right middle lobectomy History of hypertension Hyperlipidemia BPH Previous tobacco dependence Plan: Continue to maximize medical therapy with home medications Continue chest tube to waterseal, monitor for airleak resolution Increase activity, ambulate as tolerated Encourage incentive spirometry use, bronchodilators per pulmonology Pain control with current medication regimen Will monitor daily labs and x-rays More recommendations to follow
[2025-04-20] MEDS ORDERED: bisacodyL 10 MG SUPP RECTAL SCH (09:00)
--- NOTE | 2025-04-20 12:02 | P.PN ---
Subjective Progress Note Date: 04/20/25 Principal diagnosis: Lung cancer. 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 He completed induction chemotherapy and his last chemotherapy was March 04, 2025. A repeat PET scan demonstrated complete response with no uptake in the subcarinal region and immediate minimal uptake in the lung with complete resolution of the previously observed lung mass. The patient still elected to undergo a right middle lobectomy to complete the staging and minimize the risk of recurrence. He was brought in electively today and did indeed undergo a robotic assisted right middle lobectomy with mediastinal lymph node dissection with Dr. Garcia. He is seen in consultation on the selective care unit. He is currently resting fairly comfortably in bed. Awake and alert in no acute dis tress. Right sided chest tube remains in place to Pleur-evac and low continuous wall suction at -20 cm of water. There is a positive bubbling leak present. Chest x-ray reveals right thoracotomy tube in place with no evidence of significant pneumothorax. He is maintaining O2 saturations up to 100% on 2 L/min per nasal cannula. He has been afebrile. Hemodynamically stable. Progress note dated April 18, 2025. 74-year-old male who was seen yesterday in consultation. Please see my note above. He is postoperative day #1, status post right middle lobectomy. The patient seems to be doing relatively well. He seen today in room 354. He is on room air. No IV fluids. He does have a small leak from the right sided chest tube. Current laboratory data includes a white count of 1.9, hemoglobin 11.2, hematocrit 32.7, and platelet count 194,000. Sodium 130, potassium 4.4, chloride 96, CO2 30, BUN 25, creatinine 0.81. Glucose is 119. Calcium is 8.3. Chest x-ray shows a right-sided chest tube, no pneumothorax. Progress note dated April 19, 2025. 74-year-old male seen today in room 354. He is sitting in the chair next to the hospital bed. He is resting comfortably. He is awake and alert. No respiratory distress. Right chest tube remains in. There is a small leak. He is on room air. He is not receiving any IV fluids. Current laboratory data includes a white count 7.1, hemoglobin 1.6, hematocrit 34.9, and a normal platelet count. Sodium 135, potassium 3.3, chlorides 99, CO2 27, BUN 25, creatinine 0.71. Glucose 115. Calcium 8.5. Chest x-ray shows a stable right-sided chest tube, without obvious pneumothorax. Progress note dated April 20, 2025. 74-year-old male seen today in room 354. The patient is sitting in the chair next to the hospital bed. He is on room air. He is not receiving any IV fluids. His chest tube remains in place. He continues with a leak. Clinically, he is doing well. He denies any chest pain or chest discomfort. He is not having any shortness of breath. Current labs include a white count 7.3, hemoglobin 9.3, hematocrit 33.1, and a platelet count of 198,000. Sodium 134, potassium 4.3, chlorides 100, CO2 28, BUN 31, creatinine 1.13. Glucose is 100. Calcium is 9.1. Chest x-ray is largely unchanged. There are some right basilar atelectasis. The right chest tube remains in place. No pneumothorax is seen Objective - Vital Signs Vital signs: Vital Signs Temp 98.8 F 04/20/25 09:30 Pulse 84 04/20/25 11:15 Resp 18 04/20/25 11:15 BP 148/73 04/20/25 11:15 Pulse Ox 100 04/20/25 11:15 FiO2 21 04/18/25 11:30 Intake & Output 04/19/25 04/20/25 04/20/25 18:59 06:59 18:59 Intake Total 540 240 Output Total 460 Balance 540 -460 240 Weight 79.8 kg Intake: Oral 540 240 Output: Drainage 10 Right Medial Chest 10 Urine 450 Other: Voiding Method Urinal # Voids 1 - Exam No acute distress, oriented 3. Currently on room air. HEENT examination is grossly unremarkable. Mucous membranes are moist. No oral lesions. Neck supple. Full range of motion. No adenopathy thyromegaly or neck vein distention. Cardiovascular examination reveals regular rhythm rate. S1-S2 normal. No S3 or S4. No discernible murmur noted. Lungs reveal mostly clear breath sounds. Minimal rhonchi. No wheezes or crackles. Right-sided chest tube is noted. Abdomen soft bowel sounds are heard. No masses or tenderness. Extremities are intact. No cyanosis clubbing or edema. Skin is without rash or lesion. Neurologic examination is brief but nonfocal. 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 Status post induction chemotherapy, S/P right middle lobectomy with mediastinal lymph node dissection, postoperative day #3. Chronic and ongoing tobacco dependence. Hypertension. Hyperlipidemia. Plan: Plan dated April 18, 2025. The patient is seen today in room 354. He continues on room air. Right-sided chest tube is in place. Labs, x-rays, and all medications are reviewed. We will continue to follow the patient, and make recommendations were appropriate. Prognosis is guarded. We encourage the patient to deep breathe, cough, clear secretions, and use the incentive spirometer, every hour. Dictation was p roduced using [employer] software. Please excuse any grammatical, word or spelling errors. Plan dated April 19, 2025. The patient is seen today in room 354. He is sitting in the chair next to the hospital bed. He is on room air. He is not receiving any IV fluids. Right- sided chest tube remains in place. The patient does have a leak. Labs, x-rays, and medications are reviewed. We will continue to follow the patient, make recommendations. We recommend deep breathing, coughing, and clearing of secretions, and hourly use of the incentive spirometer. Overall prognosis remains guarded. Dictation was produced using [employer] software. Please excuse any grammatical, word or spelling errors. Plan dated April 20, 2025. The patient is seen today in room 354. He is sitting in the chair next to the hospital bed. He is not requiring any supplemental oxygen. He is not on any fluids. Labs, x-rays, and all medications are reviewed. The patient's right chest tube remains in place. He does have an ongoing leak. He is being followed by cardiothoracic surgery. We will continue to follow make recommendations where appropriate. Prognosis is guarded. Dictation was produc ed using [email or web address] dictation software. Please excuse any grammatical, word or spelling errors. Time with Patient: Less than 30
[2025-04-20] MEDS: BISMUTH SUBSALICYLATE 4,192 MG/240 ML BOTTLE PO PRN (12:52)
[2025-04-20] MEDS: TAMSULOSIN 0.4 MG CAP.ER.24H PO SCH (17:54)
--- NOTE | 2025-04-21 06:39 | XR ---
EXAMINATION TYPE: XR chest 2V DATE OF EXAM: 04/21/2025 CLINICAL INDICATION: Male, 74 years old with history of Post lobectomy, TECHNIQUE: Frontal and lateral views of the chest are obtained. COMPARISON: Chest x-ray from one day earlier FINDINGS: Persistent right-sided chest tube. Persistent right basilar linear atelectasis. No pneumoth orax seen. Superior right-sided subcutaneous emphysema redemonstrated. Left lung is clear. Cardiac si lhouette size stable and within normal limits with atherosclerotic thoracic aorta. Osseous structures are intact. IMPRESSION: No pneumothorax with right-sided chest tube. Persistent right basilar linear atelectasis. No significant change from one day earlier. [facility], , 04/21/2025 6:37 AM
[2025-04-21 07:49] LABS: MCH 32.4 pg (27.0-32.0); MCHC 34.5 g/dL (32.0-37.0); MCV 93.9 fL (80.0-97.0); Platelet Count 179 10*3/uL (140-440); RBC 3.09 10*6/uL (4.40-5.60); RDW 12.8 % (11.5-14.5); WBC 4.48 10*3/uL (4.50-10.00)
[2025-04-21 07:58] LABS: African American GFR (CKD) >90 (>60 ml/min/1.73 sqM); Anion Gap 5 mmol/L; Blood Urea Nitrogen 26 mg/dL (9-20); Calcium 8.9 mg/dL (8.4-10.2); Carbon Dioxide 28 mmol/L (22-30); Chloride 98 mmol/L (98-107); Glucose 130 mg/dL (74-99); Non-African American GFR(CKD) 90 (>60 ml/min/1.73 sqM); Potassium 3.3 mmol/L (3.5-5.1); Sodium 131 mmol/L (137-145)
--- NOTE | 2025-04-21 08:06 | P.PN ---
Subjective Progress Note Date: 04/21/25 Principal diagnosis: Stage IIIa squamous cell lung cancer right middle lobe status post induction chemotherapy with clinical complete response. History of hypertension, hyperlipidemia, BPH, previous tobacco dependence POD #4 robotic assisted thoracoscopic right middle lobectomy with mediastinal lymph node dissection The patient was seen and examined this morning sitting up in a recliner on the cardiac stepdown unit in no acute distress. States pain is mostly controlled on current medication regimen. Remains in sinus rhythm, hemodynamically stable. Currently on room air with oxygen saturation in the mid 90s, able to achieve 1750 mL incentive spirometry. Right pleural chest tube present to [facility], 50 mL output in the last 24 hours, no airleak seen this morning. Patient has been ambulatory in the hallway without difficulty. Patient patient has had urine retention requiring straight catheterization, somewhat expected as patient has history of BPH and was taking saw palmetto at home for this. No other new concerns. Objective - Vital Signs Vital signs: Vital Signs Temp 97.9 F 04/21/25 07:53 Pulse 91 04/21/25 07:53 Resp 18 04/21/25 07:53 BP 104/64 04/21/25 07:53 Pulse Ox 97 04/21/25 07:53 FiO2 21 04/18/25 11:30 Intake & Output 04/20/25 04/21/25 04/21/25 18:59 06:59 18:59 Intake Total 598 240 Output Total 1300 980 Balance -702 -740 Weight 80 kg Intake: Oral 598 240 Output: Drainage 30 Right Medial Chest 30 Urine 1300 950 Straight 1300 Other: Voiding Method Urinal # Voids 1 - Exam CONSTITUTIONAL: Appears comfortable, cooperative, no acute distress RESPIRATORY: Lungs sounds diminished bilaterally. Respirations even, nonlabored. Currently on room air with oxygen saturation 95%. Able to achieve 1750 mL on incentive spirometry. Strong cough. CARDIOVASCULAR: S1, S2 present. Regular rate and rhythm, sinus rhythm on telemetry. Palpable peripheral pulses bilaterally. No edema present. No calf pain or tenderness noted. SCDs present. GASTROINTESTINAL: Abdomen soft, nontender, nondistended. Active bowel sounds present 4 quadrants. Tolerating diet. Positive bowel movement 04/19 GENITOURINARY: Required straight catheterization x 3 in the last 24 hours INTEGUMENTARY: Skin is warm and dry with evidence of good perfusion. Thoracic incision well approximated and covered with dry intact dressing. NEUROLOGIC: Cranial nerves II through XII intact MUSKULOSKELETAL: Able to move all extremities, strength equal bilaterally, gait normal PSYCHIATRIC: Alert and oriented to person place and time, appropriate affect, intact judgment and insight INVASIVE LINES AND TUBES: Right pleural chest tubes present to waterseal, no airleak present this morning, 50 mL serosanguineous drainage in the last 24 hours - Allied health notes Allied health notes reviewed: nursing - Labs CBC & Chem 7: 04/21/25 07:12 04/21/25 07:12 Labs: Abnormal Lab Results - Last 24 Hours (Table) 04/20/25 04/21/25 04/21/25 Range/Units 06:58 07:12 07:12 WBC 4.48 L (4.50-10.00) 10*3/uL RBC 3.09 L (4.40-5.60) 10*6/uL Hgb 10.0 L (13.0-17.0) g/dL Hct 29.0 L (39.6-50.0) % MCH 32.4 H (27.0-32.0) pg Sodium 134 L 131 L (137-145) mmol/L Potassium 3.3 L (3.5-5.1) mmol/L BUN 31 H 26 H (9-20) mg/dL Glucose 100 H 130 H (74-99) mg/dL - Imaging and Cardiology Chest x-ray: report reviewed, image reviewed Assessment and Plan Assessment: Stage IIIa squamous cell lung cancer right middle lobe status post induction chemotherapy with clinical complete response, status post right middle lobectomy History of hypertension Hyperlipidemia BPH Previous tobacco dependence Plan: Chest tube clamped, will repeat chest x-ray at 11 AM to determine if chest tube is ready to be discontinued Flomax initiated Continue to maximize medical therapy with home medications Increase activity, ambulate as tolerated Encourage incentive spirometry use, bronchodilators per pulmonology Pain control with current medication regimen Will monitor daily labs and x-rays More recommendations to follow
[2025-04-21] MEDS: bisacodyL 10 MG SUPP RECTAL PRN (09:13)
--- NOTE | 2025-04-21 11:33 | XR ---
EXAMINATION TYPE: XR chest 2V DATE OF EXAM: 04/21/2025 CLINICAL INDICATION: Male, 74 years old with history of pneumothorax after lobectomy, TECHNIQUE: Frontal and lateral views of the chest are obtained. COMPARISON: Chest x-ray earlier today FINDINGS: Persistent right-sided chest tube. Persistent right basilar linear atelectasis. No pneumoth orax seen. Superior right-sided subcutaneous emphysema redemonstrated. Left lung remains clear. Cardi ac silhouette size stable and within normal limits with atherosclerotic thoracic aorta. Osseous struc tures are intact. IMPRESSION: No pneumothorax with right-sided chest tube. Persistent right basilar linear atelectasis. No significant change from earlier today. [facility], , 04/21/2025 11:30 AM
[2025-04-21] MEDS: POTASSIUM BICARBONATE/CIT AC 20 MEQ TABLET.EFF PO ONE (14:59)
--- NOTE | 2025-04-21 17:02 | P.PN ---
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 He completed induction chemotherapy and his last chemotherapy was March 04, 2025. A repeat PET scan demonstrated complete response with no uptake in the sub carinal region and immediate minimal uptake in the lung with complete resolution of the previously observed lung mass. The patient still elected to undergo a right middle lobectomy to complete the staging and minimize the risk of recurrence. He was brought in electively today and did indeed undergo a robotic assisted right middle lobectomy with mediastinal lymph node dissection with Dr. Garcia. He is seen in consultation on the selective care unit. He is currently resting fairly comfortably in bed. Awake and alert in no acute distress. Right sided chest tube remains in place to Pleur-evac and low continuous wall suction at -20 cm of water. There is a positive bubbling leak present. Chest x-ray reveals right thoracotomy tube in place with no evidence of significant pneumothorax. He is maintaining O2 saturations up to 100% on 2 L/min per nasal cannula. He has been afebrile. Hemodynamically stable. Progress note dated April 18, 2025. 74-year-old male who was seen yesterday in consultation. Please see my note above. He is postoperative day #1, status post right middle lobectomy. The patient seems to be doing relatively well. He seen today in room 354. He is on room air. No IV fluids. He does have a small leak from the right sided chest tube. Current laboratory data includes a white count of 1.9, hemoglobin 11.2, hematocrit 32.7, and platelet count 194,000. Sodium 130, potassium 4.4, chloride 96, CO2 30, BUN 25, creatinine 0.81. Glucose is 119. Calcium is 8.3. Chest x-ray shows a right-sided chest tube, no pneumothorax. Progress note dated April 19, 2025. 74-year-old male seen today in room 354. He is sitting in the chair next to the hospital bed. He is resting comfortably. He is awake and alert. No respiratory distress. Right chest tube remains in. There is a small leak. He is on room air. He is not receiving any IV fluids. Current laboratory data includes a white count 7.1, hemoglobin 1.6, hematocrit 34.9, and a normal platelet count. Sodium 135, potassium 3.3, chlorides 99, CO2 27, BUN 25, creatinine 0.71. Glucose 115. Calcium 8.5. Chest x-ray shows a stable right- sided chest tube, without obvious pneumothorax. Progress note dated April 20, 2025. 74-year-old male seen today in room 354. The patient is sitting in the chair next to the hospital bed. He is on room air. He is not receiving any IV fluids. His chest tube remains in place. He continues with a leak. Clinically, he is doing well. He denies any chest pain or chest discomfort. He is not having any shortness of breath. Current labs include a white count 7.3, hemoglobin 9.3, hematocrit 33.1, and a platelet count of 198,000. Sodium 134, potassium 4.3, chlorides 100, CO2 28, BUN 31, creatinine 1.13. Glucose is 100. Calcium is 9.1. Chest x-ray is largely unchanged. There are some right basilar atelectasis. The right chest tube remains in place. No pneumothorax is seen 04/21/2025, the patient is resting comfortably in bed. No significant respirat ory distress. The patient is doing well post his right middle lobectomy mediastinal lymph node dissection the patient is currently postop day #4. Using incentive spirometer. Pulling more than 1500 on his I-S. Right-sided chest tube still in place and is/to waterseal. Repeat chest x-ray from this morning shows no clear evidence of pneumothorax. Output from the chest tube is minimal. On a separate note, the patient has developed urinary retention and the patient will have a Kern catheter inserted. The bedside because of 4.4 with a hemoglobin of 10 and platelet count of 179. BUN 26 and a creatinine of 0.7. Sodium is at 131 and a potassium level is at 3.3. No other significant events overnight. The patient is currently on room air oxygen. Objective - Vital Signs Vital signs: Vital Signs Temp 97.7 F 04/21/25 11:34 Pulse 66 04/21/25 11:34 Resp 18 04/21/25 11:34 BP 90/54 04/21/25 11:34 Pulse Ox 96 04/21/25 11:34 FiO2 21 04/18/25 11:30 Intake & Output 04/20/25 04/21/25 04/21/25 18:59 06:59 18:59 Intake Total 598 240 222 Output Total 1300 980 Balance -702 -740 222 Weight 80 kg Intake: Oral 598 240 222 Output: Drainage 30 Right Medial Chest 30 Urine 1300 950 Straight 1300 Other: Voiding Method Urinal Urinal # Voids 1 - Exam No acute distress, oriented 3. Currently on room air. HEENT examination is grossly unremarkable. Mucous membranes are moist. No oral lesions. Neck supple. Full range of motion. No adenopathy thyromegaly or neck vein distention. Cardiovascular examination reveals regular rhythm rate. S1-S2 normal. No S3 or S4. No discernible murmur noted. Lungs reveal mostly clear breath sounds. Minimal rhonchi. No wheezes or crackles. Right-sided chest tube is noted. The right-sided chest tube is placed to waterseal. No evidence of any air leak. Abdomen soft bowel sounds are heard. No masses or tenderness. Extremities are intact. No cyanosis clubbing or edema. Skin is without rash or lesion. Neurologic examination is brief but nonfocal. 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 Status post induction chemotherapy, S/P right middle lobectomy with mediastinal lymph node dissection, postoperative day 4 and the patient is doing well. No evidence of any pneumothorax on the right side chest tube in place without air leak attached to waterseal. Chronic and ongoing tobacco dependence. Hypertension. Hyperlipidemia. Urinary retention, a Kern catheter will be inserted. Plan: Clinically stable without evidence of any pneumothorax on today's chest x-ray. Right-sided chest tube attached to waterseal and there is no evidence of any ongoing air leak. Using incentive spirometer Pain is under adequate control Patient is on room air oxygen Urinary retention and a Kern catheter will be inserted Will continue to follow. Time with Patient: Greater than 30
--- NOTE | 2025-04-22 06:41 | XR ---
EXAMINATION TYPE: XR chest 2V DATE OF EXAM: 04/22/2025 CLINICAL INDICATION: Male, 74 years old with history of post lobectomy, TECHNIQUE: Frontal and lateral views of the chest are obtained. COMPARISON: Chest x-ray one day earlier FINDINGS: Persistent right-sided chest tube. Persistent right basilar atelectasis. No pneumothorax se en. Superior right-sided subcutaneous emphysema redemonstrated. Left lung remains clear. Cardiac silhouette size stable and within normal limits with atherosclerotic thoracic aorta. Osseous structures are intact. IMPRESSION: No pneumothorax with right-sided chest tube. No significant change from one day earlier. [facility], , 04/22/2025 6:39 AM
[2025-04-22 07:22] LABS: HCT 29.7 % (39.6-50.0); HGB 10.3 g/dL (13.0-17.0); MCHC 34.7 g/dL (32.0-37.0); MCV 92.2 fL (80.0-97.0); Mean Platelet Volume 11.4 fL (9.5-12.2); Platelet Count 201 10*3/uL (140-440); RBC 3.22 10*6/uL (4.40-5.60); RDW 12.3 % (11.5-14.5); WBC 5.26 10*3/uL (4.50-10.00)
[2025-04-22 07:48] LABS: African American GFR (CKD) >90 (>60 ml/min/1.73 sqM); Anion Gap 4 mmol/L; Blood Urea Nitrogen 21 mg/dL (9-20); Carbon Dioxide 30 mmol/L (22-30); Chloride 95 mmol/L (98-107); Glucose 88 mg/dL (74-99); Non-African American GFR(CKD) >90 (>60 ml/min/1.73 sqM); Potassium 4.5 mmol/L (3.5-5.1); Sodium 129 mmol/L (137-145)
--- NOTE | 2025-04-22 09:04 | P.PN ---
Subjective Progress Note Date: 04/22/25 Principal diagnosis: Stage IIIa squamous cell lung cancer right middle lobe status post induction chemotherapy with clinical complete response. History of hypertension, hyperlipidemia, BPH, previous tobacco dependence POD #5 robotic assisted thoracoscopic right middle lobectomy with mediastinal lymph node dissection The patient was seen and examined this morning sitting up in a recliner on the cardiac stepdown unit in no acute distress. States pain is mostly controlled on current medication regimen. Remains in sinus rhythm, hemodynamically stable. Currently on room air with oxygen saturation in the mid 90s, able to achieve 2000 mL incentive spirometry. Right pleural chest tube present to [facility], minimal output in the last 24 hours, small airleak seen this morning with coughing. Patient has been ambulatory in the hallway without difficulty. Patient patient has had urine retention requiring straight catheterization, somewhat expected as patient has history of BPH and was taking saw palmetto at home for this, was initially able to void after surgery but then was unable to void for the last couple of days. He was started on Flomax but was still unable to void and Kern catheter was reinserted. Urology was consulted. No other new concerns. Objective - Vital Signs Vital signs: Vital Signs Temp 98.1 F 04/22/25 07:36 Pulse 94 04/22/25 07:36 Resp 18 04/22/25 07:36 BP 90/59 04/22/25 07:36 Pulse Ox 96 04/22/25 07:36 FiO2 21 04/18/25 11:30 Intake & Output 04/21/25 04/22/25 04/22/25 18:59 06:59 18:59 Intake Total 442 1080 Output Total 415 470 Balance 27 610 Weight 81 kg Intake: Oral 442 1080 Output: Chest Tube Drainage 40 20 Chest Tube Right Lateral 40 20 Chest Urine 375 450 Uretheral (Kern) 375 Other: Voiding Method Indwelling Catheter Indwelling Catheter - Exam CONSTITUTIONAL: Appears comfortable, cooperative, no acute distress RESPIRATORY: Lungs sounds diminished bilaterally. Respirations even, nonlabored. Currently on room air with oxygen saturation 96%. Able to achieve 2000 mL on incentive spirometry. Strong cough. CARDIOVASCULAR: S1, S2 present. Regular rate and rhythm, sinus rhythm on telemetry. Palpable peripheral pulses bilaterally. No edema present. No calf pain or tenderness noted. SCDs present. GASTROINTESTINAL: Abdomen soft, nontender, nondistended. Active bowel sounds present 4 quadrants. Tolerating diet. Positive bowel movement 04/19 GENITOURINARY: Kern present draining clear, yellow urine INTEGUMENTARY: Skin is warm and dry with evidence of good perfusion. Thoracic incision well approximated and covered with dry intact dressing. NEUROLOGIC: Cranial nerves II through XII intact MUSKULOSKELETAL: Able to move all extremities, strength equal bilaterally, gait normal PSYCHIATRIC: Alert and oriented to person place and time, appropriate affect, intact judgment and insight INVASIVE LINES AND TUBES: Right pleural chest tubes present to waterseal, remittent airleak present with coughing, minimal serosanguineous drainage in the last 24 hours - Allied health notes Allied health notes reviewed: nursing - Labs CBC & Chem 7: 04/22/25 06:13 04/22/25 06:13 Labs: Abnormal Lab Results - Last 24 Hours (Table) 04/22/25 04/22/25 Range/Units 06:13 06:13 RBC 3.22 L (4.40-5.60) 10*6/uL Hgb 10.3 L (13.0-17.0) g/dL Hct 29.7 L (39.6-50.0) % Sodium 129 L (137-145) mmol/L Chloride 95 L (98-107) mmol/L BUN 21 H (9-20) mg/dL - Imaging and Cardiology Chest x-ray: report reviewed, image reviewed Assessment and Plan Assessment: Stage IIIa squamous cell lung cancer right middle lobe status post induction chemotherapy with clinical complete response, status post right middle lobectomy History of hypertension Hyperlipidemia BPH Previous tobacco dependence Plan: Continue chest tube to waterseal until airleak completely resolves Continue Flomax, Kern catheter reinserted, urology consulted Continue to maximize medical therapy with home medications Increase activity, ambulate as tolerated Encourage incentive spirometry use, bronchodilators per pulmonology Pain control with current medication regimen Will monitor daily labs and x-rays More recommendations to follow
--- NOTE | 2025-04-22 14:42 | P.PN ---
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 He completed induction chemotherapy and his last chemotherapy was March 04, 2025. A repeat PET scan demonstrated complete response with no uptake in the sub carinal region and immediate minimal uptake in the lung with complete resolution of the previously observed lung mass. The patient still elected to undergo a right middle lobectomy to complete the staging and minimize the risk of recurrence. He was brought in electively today and did indeed undergo a robotic assisted right middle lobectomy with mediastinal lymph node dissection with Dr. Garcia. He is seen in consultation on the selective care unit. He is currently resting fairly comfortably in bed. Awake and alert in no acute distress. Right sided chest tube remains in place to Pleur-evac and low continuous wall suction at -20 cm of water. There is a positive bubbling leak present. Chest x-ray reveals right thoracotomy tube in place with no evidence of significant pneumothorax. He is maintaining O2 saturations up to 100% on 2 L/min per nasal cannula. He has been afebrile. Hemodynamically stable. Progress note dated April 18, 2025. 74-year-old male who was seen yesterday in consultation. Please see my note above. He is postoperative day #1, status post right middle lobectomy. The patient seems to be doing relatively well. He seen today in room 354. He is on room air. No IV fluids. He does have a small leak from the right sided chest tube. Current laboratory data includes a white count of 1.9, hemoglobin 11.2, hematocrit 32.7, and platelet count 194,000. Sodium 130, potassium 4.4, chloride 96, CO2 30, BUN 25, creatinine 0.81. Glucose is 119. Calcium is 8.3. Chest x-ray shows a right-sided chest tube, no pneumothorax. Progress note dated April 19, 2025. 74-year-old male seen today in room 354. He is sitting in the chair next to the hospital bed. He is resting comfortably. He is awake and alert. No respiratory distress. Right chest tube remains in. There is a small leak. He is on room air. He is not receiving any IV fluids. Current laboratory data includes a white count 7.1, hemoglobin 1.6, hematocrit 34.9, and a normal platelet count. Sodium 135, potassium 3.3, chlorides 99, CO2 27, BUN 25, creatinine 0.71. Glucose 115. Calcium 8.5. Chest x-ray shows a stable right- sided chest tube, without obvious pneumothorax. Progress note dated April 20, 2025. 74-year-old male seen today in room 354. The patient is sitting in the chair next to the hospital bed. He is on room air. He is not receiving any IV fluids. His chest tube remains in place. He continues with a leak. Clinically, he is doing well. He denies any chest pain or chest discomfort. He is not having any shortness of breath. Current labs include a white count 7.3, hemoglobin 9.3, hematocrit 33.1, and a platelet count of 198,000. Sodium 134, potassium 4.3, chlorides 100, CO2 28, BUN 31, creatinine 1.13. Glucose is 100. Calcium is 9.1. Chest x-ray is largely unchanged. There are some right basilar atelectasis. The right chest tube remains in place. No pneumothorax is seen 04/21/2025, the patient is resting comfortably in bed. No significant respirat ory distress. The patient is doing well post his right middle lobectomy mediastinal lymph node dissection the patient is currently postop day #4. Using incentive spirometer. Pulling more than 1500 on his I-S. Right-sided chest tube still in place and is/to waterseal. Repeat chest x-ray from this morning shows no clear evidence of pneumothorax. Output from the chest tube is minimal. On a separate note, the patient has developed urinary retention and the patient will have a Kern catheter inserted. The bedside because of 4.4 with a hemoglobin of 10 and platelet count of 179. BUN 26 and a creatinine of 0.7. Sodium is at 131 and a potassium level is at 3.3. No other significant events overnight. The patient is currently on room air oxygen. 62,025, the patient is being seen for a follow-up. The patient is sitting up in a chair and the patient is calm and comfortable. Right-sided chest tube remains in place. There are some intermittent airleak as noted in the Pleur-evac. No significant respiratory distress. No significant chest pain. Hemodynamically stable. Repeat chest x-ray from today shows no evidence of any pneumothorax. However, based on the present of some limited air leak, we decided to keep the chest tube in place for now. Case was discussed with cardiothoracic surgery. Meanwhile, the patient has a Kern catheter in place. The white cell count is 5.2 with a hemoglobin 10.3 and a platelet count of 2 1. BUN 21 with a creatinine of 0.7. Sodium levels at 129 and a potassium level is at 4.5. He is currently on Flomax 0.4 mg once a day. Rest of the home medications will be resumed. He is postop day #5. Objective - Vital Signs Vital signs: Vital Signs Temp 98.1 F 04/22/25 07:36 Pulse 94 04/22/25 07:36 Resp 18 04/22/25 07:36 BP 96/63 04/22/25 09:07 Pulse Ox 96 04/22/25 07:36 FiO2 21 04/18/25 11:30 Intake & Output 04/21/25 04/22/25 04/22/25 18:59 06:59 18:59 Intake Total 442 1080 Output Total 415 470 Balance 27 610 Weight 81 kg Intake: Oral 442 1080 Output: Chest Tube Drainage 40 20 Chest Tube Right Lateral 40 20 Chest Urine 375 450 Uretheral (Kern) 375 Other: Voiding Method Indwelling Catheter Indwelling Catheter Indwelling Catheter - Exam CONSTITUTIONAL: Appears comfortable, cooperative, no acute distress RESPIRATORY: Lungs sounds diminished bilaterally. Respirations even, nonlabored. Currently on room air with oxygen saturation 96%. Able to achieve 2000 mL on incentive spirometry. Strong cough. CARDIOVASCULAR: S1, S2 present. Regular rate and rhythm, sinus rhythm on telemetry. Palpable peripheral pulses bilaterally. No edema present. No calf pain or tenderness noted. SCDs present. GASTROINTESTINAL: Abdomen soft, nontender, nondistended. Active bowel sounds present 4 quadrants. Tolerating diet. Positive bowel movement 04/19 GENITOURINARY: Kern present draining clear, yellow urine INTEGUMENTARY: Skin is warm and dry with evidence of good perfusion. Thoracic incision well approximated and covered with dry intact dressing. NEUROLOGIC: Cranial nerves II through XII intact MUSKULOSKELETAL: Able to move all extremities, strength equal bilaterally, gait normal PSYCHIATRIC: Alert and oriented to person place and time, appropriate affect, intact judgment and insight INVASIVE LINES AND TUBES: Right pleural chest tubes present to waterseal, remittent airleak present with coughing, minimal serosanguineous drainage in the last 24 hours - Labs CBC & Chem 7: 04/22/25 06:13 04/22/25 06:13 Labs: Abnormal Lab Results - Last 24 Hours (Table) 04/22/25 04/22/25 Range/Units 06:13 06:13 RBC 3.22 L (4.40-5.60) 10*6/uL Hgb 10.3 L (13.0-17.0) g/dL Hct 29.7 L (39.6-50.0) % Sodium 129 L (137-145) mmol/L Chloride 95 L (98-107) mmol/L BUN 21 H (9-20) mg/dL Assessment and Plan Plan: Stage IIIa squamous cell carcinoma of the right middle lobe. Status post induction chemotherapy, S/P right middle lobectomy with mediastinal lymph node dissection, postoperative day 5 and the patient is doing well. No evidence of a ny pneumothorax on the right side chest tube in place and there is no evidence of any pneumothorax. However, the patient is having some intermittent airleak while being on waterseal. Chronic and ongoing tobacco dependence. Hypertension. Hyperlipidemia. Urinary retention, a Kern catheter in place and the patient is currently on Flomax Plan: Clinically stable without evidence of any pneumothorax on today's chest x-ray. Right-sided chest tube attached to waterseal and there is no evidence of any ongoing air leak. Using incentive spirometer intermittent airleak and for that reason we decided to keep the chest tube in place for another 24 to 48 hours. Pain is under adequate control Patient is on room air oxygen Urinary retention and a Kern catheter was inserted and the patient is currently on Flomax Will continue to follow. Time with Patient: Greater than 30
--- NOTE | 2025-04-22 17:26 | P.GSCN ---
History of Present Illness Consult date: 04/22/25 Reason for Consult: Urinary retention, phimosis History of present illness: This is a 74-year-old male with history of lung cancer status post right middle lobe lobectomy. Urology is consulted for urinary retention. Patient initially was able to void postsurgery, but started having difficulty voiding and required multiple straight cath and subsequently a Kern catheter was placed for the postvoid residual of 1.1 L. He indicated for the past couple of months he has been noticing hesitancy with weak stream. He is also been complaining of phimosis with difficulty retracting his foreskin. Denies any dysuria or gross hematuria, no previous history of urinary retention, at home he does take saw palmeto. He did have a PET scan in February which showed evidence of prostate enlargement Review of Systems - Constitutional Denies fever, Denies weight loss - EENT Ears, nose, mouth and throat: Denies dysphagia - Cardiovascular Denies chest pain, Denies shortness of breath - Gastrointestinal Reports as per HPI - Genitourinary Denies dysuria, Denies hematuria - Neurological Denies headaches, Denies syncope Past Medical History Past Medical History: Cancer, Hyperlipidemia, Hypertension, Prostate Disorder Additional Past Medical History / Comment(s): rt middle lobe lung cancer, received chemo -last tx 03-04-25,no radiation-follows w/ Dr Yousuf Momin,enlarged prostate History of Any Multi-Drug Resistant Organisms: MRSA Year Discovered:: 06/29/2015 MDRO Source:: NOSE Past Surgical History: Tonsillectomy Additional Past Surgical History / Comment(s): COLONOSCOPY,bronchoscopy. SINUS SX Past Anesthesia/Blood Transfusion Reactions: No Reported Reaction Additional Past Anesthesia/Blood Transfusion Reaction / Comm: no hx blood transfusion Smoking Status: Former smoker - Past Family History Sister(s) Family Medical History: Cancer, Diabetes Mellitus Additional Family Medical History / Comment(s): breast CA,uterine CA,Lung and brain CA Medications and Allergies Home Medications Medication Instructions Recorded Confirmed Type Aspirin [Adult Low Dose Aspirin EC] 81 mg PO DAILY 05/31/23 04/17/25 History Lisinopril-Hctz 20-25 mg 1 tab PO QAM 05/31/23 04/17/25 History [Zestoretic 20-25] Metoprolol Tartrate [Lopressor] 100 mg PO BID 05/31/23 04/17/25 History Mv-Min/Folic/K1/Lycopen/Lutein 1 each PO DAILY 05/31/23 04/17/25 History [Centrum Silver Men Tablet] Rosuvastatin Calcium 5 mg PO DAILY 05/31/23 04/17/25 History Saw [place]beak 500 mg PO DAILY 05/31/23 04/17/25 History Hydrocortisone [Cortef] 10 mg PO BID 04/10/25 04/17/25 History Allergies Allergy/AdvReac Type Severity Reaction Status Date / Time No Known Allergies Allergy Verified 04/17/25 06:09 Surgical - Exam Vital Signs Temp Pulse Resp BP Pulse Ox 97 F L 51 L 16 134/62 99 04/17/25 06:07 04/17/25 06:07 04/17/25 06:07 04/17/25 06:07 04/17/25 06:07 - General no distress, no pain - Eyes normal ocular movement, no pale - ENT normal nares, normal mucosa - Respiratory normal expansion, normal respiratory effort - Abdomen Abdomen: soft, non tender - Genitourinary Phimosis, unable to retract foreskin testicles present, testicles non-tender Results - Labs 04/22/25 06:13 04/22/25 06:13 Abnormal Lab Results - Last 24 Hours (Table) 04/22/25 04/22/25 Range/Units 06:13 06:13 RBC 3.22 L (4.40-5.60) 10*6/uL Hgb 10.3 L (13.0-17.0) g/dL Hct 29.7 L (39.6-50.0) % Sodium 129 L (137-145) mmol/L Chloride 95 L (98-107) mmol/L BUN 21 H (9-20) mg/dL Diabetes panel 04/22/25 Range/Units 06:13 Sodium 129 L (137-145) mmol/L Potassium 4.5 (3.5-5.1) mmol/L Chloride 95 L (98-107) mmol/L Carbon Dioxide 30 (22-30) mmol/L BUN 21 H (9-20) mg/dL Creatinine 0.76 (0.66-1.25) mg/dL Glucose 88 (74-99) mg/dL Calcium 9.0 (8.4-10.2) mg/dL Calcium panel 04/22/25 Range/Units 06:13 Calcium 9.0 (8.4-10.2) mg/dL Pituitary panel 04/22/25 Range/Units 06:13 Sodium 129 L (137-145) mmol/L Potassium 4.5 (3.5-5.1) mmol/L Chloride 95 L (98-107) mmol/L Carbon Dioxide 30 (22-30) mmol/L BUN 21 H (9-20) mg/dL Creatinine 0.76 (0.66-1.25) mg/dL Glucose 88 (74-99) mg/dL Calcium 9.0 (8.4-10.2) mg/dL Adrenal panel 04/22/25 Range/Units 06:13 Sodium 129 L (137-145) mmol/L Potassium 4.5 (3.5-5.1) mmol/L Chloride 95 L (98-107) mmol/L Carbon Dioxide 30 (22-30) mmol/L BUN 21 H (9-20) mg/dL Creatinine 0.76 (0.66-1.25) mg/dL Glucose 88 (74-99) mg/dL Calcium 9.0 (8.4-10.2) mg/dL Assessment and Plan Assessment: 74-year-old male with postop urinary retention, has BPH at baseline with obstructive urinary symptoms. Also evidence of phimosis on exam 1. BPH/Urinary retention - Continue Flomax - Trial of void prior to discharge 2. Phimosis We will start betamethasone cream
[2025-04-22] MEDS: BETAMETHASONE DIPROPIONATE 0.05% CREAM 15 GM TUBE TOPICAL SCH (20:34)
[2025-04-22] MEDS: ONDANSETRON 4 MG/2 ML VIAL IVP PRN (20:35)
--- NOTE | 2025-04-23 06:26 | XR ---
EXAMINATION TYPE: XR chest 2V DATE OF EXAM: 04/23/2025 CLINICAL INDICATION: Male, 74 years old with history of Post lobectomy, progress study. TECHNIQUE: Frontal and lateral views of the chest are obtained. COMPARISON: Chest x-ray one day earlier FINDINGS: Persistent right-sided chest tube. Persistent right basilar linear atelectasis. Small right apical pneumothorax seen. Superior small amount of right-sided subcutaneous emphysema remains presen t. Left lung remains clear. Cardiac silhouette size stable and within normal limits with atherosclerotic thoracic aorta. Osseous structures are intact. IMPRESSION: Small right apical pneumothorax now seen with right sided chest tube in place. [facility], , 04/23/2025 6:23 AM
[2025-04-23 07:24] LABS: HCT 28.2 % (39.6-50.0); MCH 31.7 pg (27.0-32.0); MCHC 35.5 g/dL (32.0-37.0); MCV 89.5 fL (80.0-97.0); Mean Platelet Volume 11.2 fL (9.5-12.2); Platelet Count 204 10*3/uL (140-440); RBC 3.15 10*6/uL (4.40-5.60); RDW 11.9 % (11.5-14.5); WBC 5.11 10*3/uL (4.50-10.00)
[2025-04-23 07:34] LABS: African American GFR (CKD) >90 (>60 ml/min/1.73 sqM); Anion Gap 7 mmol/L; Blood Urea Nitrogen 14 mg/dL (9-20); Calcium 8.7 mg/dL (8.4-10.2); Carbon Dioxide 28 mmol/L (22-30); Chloride 92 mmol/L (98-107); Glucose 85 mg/dL (74-99); Non-African American GFR(CKD) >90 (>60 ml/min/1.73 sqM); Potassium 3.6 mmol/L (3.5-5.1); Sodium 127 mmol/L (137-145)
--- NOTE | 2025-04-23 08:46 | P.PN ---
Subjective Progress Note Date: 04/23/25 Principal diagnosis: Stage IIIa squamous cell lung cancer right middle lobe status post induction chemotherapy with clinical complete response. History of hypertension, hyperlipidemia, BPH, previous tobacco dependence POD #6 robotic assisted thoracoscopic right middle lobectomy with mediastinal lymph node dissection Prolonged airleak greater than 5 days Hyponatremia, common complication after lobectomy for lung cancer The patient was seen and examined this morning sitting up in a recliner on the cardiac stepdown unit in no acute distress, although he does state he did not sleep at all last night and feels exhausted this morning. States pain is mostly controlled on current medication regimen. Remains in sinus rhythm, hemodynamically stable. Currently on room air with oxygen saturation in the mid 90s, able to achieve 2500 mL incentive spirometry. Right pleural chest tube present to waterseal, minimal output in the last 24 hours, small airleak seen this morning with conversation and coughing. Patient has been ambulatory in the hallway without difficulty. Patient patient has had urine retention, started on Flomax and Kern reinserted, patient seen by urology with recommendations for trial void before discharge. Chest x-ray, labs reviewed, sodium level decreasing. Was placed on fluid restrictions yesterday although was not compliant. No other new concerns. Objective - Vital Signs Vital signs: Vital Signs Temp 97.9 F 04/23/25 04:00 Pulse 86 04/23/25 04:00 Resp 18 04/23/25 04:00 BP 132/83 04/23/25 04:00 Pulse Ox 94 L 04/23/25 04:00 FiO2 21 04/18/25 11:30 Intake & Output 04/22/25 04/23/25 04/23/25 18:59 06:59 18:59 Intake Total 1138 840 Output Total 530 350 Balance 608 490 Weight 81 kg Intake: Oral 1138 840 Output: Chest Tube Drainage 30 Chest Tube Right Lateral 30 Chest Urine 500 350 Uretheral (Kern) 500 350 Other: Voiding Method Indwelling Catheter Indwelling Catheter - Exam CONSTITUTIONAL: Appears comfortable although exhausted, cooperative, no acute distress RESPIRATORY: Lungs sounds diminished bilaterally. Respirations even, nonlabored. Currently on room air with oxygen saturation 94%. Able to achieve 2500 mL on incentive spirometry. Strong cough. CARDIOVASCULAR: S1, S2 present. Regular rate and rhythm, sinus rhythm on telemetry. Palpable peripheral pulses bilaterally. No edema present. No calf pain or tenderness noted. SCDs present. GASTROINTESTINAL: Abdomen soft, nontender, nondistended. Active bowel sounds present 4 quadrants. Tolerating diet. Positive bowel movement 04/19 GENITOURINARY: Kern present draining clear, yellow urine, output 850 mL in the last 24 hours INTEGUMENTARY: Skin is warm and dry with evidence of good perfusion. Thoracic incision well approximated and covered with dry intact dressing. NEUROLOGIC: Cranial nerves II through XII intact MUSKULOSKELETAL: Able to move all extremities, strength equal bilaterally, gait normal PSYCHIATRIC: Alert and oriented to person place and time, appropriate affect, intact judgment and insight INVASIVE LINES AND TUBES: Right pleural chest tubes present to waterseal, intermittent airleak present with conversation and coughing, minimal serosanguineous drainage in the last 24 hours - Allied health notes Allied health notes reviewed: nursing - Labs CBC & Chem 7: 04/23/25 06:09 04/23/25 06:09 Labs: Abnormal Lab Results - Last 24 Hours (Table) 04/23/25 04/23/25 Range/Units 06:09 06:09 RBC 3.15 L (4.40-5.60) 10*6/uL Hgb 10.0 L (13.0-17.0) g/dL Hct 28.2 L (39.6-50.0) % Sodium 127 L (137-145) mmol/L Chloride 92 L (98-107) mmol/L Creatinine 0.63 L (0.66-1.25) mg/dL - Imaging and Cardiology Chest x-ray: report reviewed, image reviewed Assessment and Plan Assessment: Stage IIIa squamous cell lung cancer right middle lobe status post induction chemotherapy with clinical complete response, status post right middle lobectomy Prolonged air leak >5 days Hyponatremia History of hypertension Hyperlipidemia BPH Previous tobacco dependence Plan: Continue chest tube to waterseal until airleak completely resolves Continue Flomax, Kern catheter reinserted, urology recommends trial void before discharge Fluid restrictions 1200 mL/24 hours, discussed with nursing Continue to maximize medical therapy with home medications Increase activity, ambulate as tolerated Encourage incentive spirometry use, bronchodilators per pulmonology Pain control with current medication regimen Will monitor daily labs and x-rays More recommendations to follow
[2025-04-23] MEDS: bisacodyL 10 MG SUPP RECTAL STA (09:05)
--- NOTE | 2025-04-23 15:30 | P.PN ---
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 He completed induction chemotherapy and his last chemotherapy was March 04, 2025. A repeat PET scan demonstrated complete response with no uptake in the sub carinal region and immediate minimal uptake in the lung with complete resolution of the previously observed lung mass. The patient still elected to undergo a right middle lobectomy to complete the staging and minimize the risk of recurrence. He was brought in electively today and did indeed undergo a robotic assisted right middle lobectomy with mediastinal lymph node dissection with Dr. Garcia. He is seen in consultation on the selective care unit. He is currently resting fairly comfortably in bed. Awake and alert in no acute distress. Right sided chest tube remains in place to Pleur-evac and low continuous wall suction at -20 cm of water. There is a positive bubbling leak present. Chest x-ray reveals right thoracotomy tube in place with no evidence of significant pneumothorax. He is maintaining O2 saturations up to 100% on 2 L/min per nasal cannula. He has been afebrile. Hemodynamically stable. Progress note dated April 18, 2025. 74-year-old male who was seen yesterday in consultation. Please see my note above. He is postoperative day #1, status post right middle lobectomy. The patient seems to be doing relatively well. He seen today in room 354. He is on room air. No IV fluids. He does have a small leak from the right sided chest tube. Current laboratory data includes a white count of 1.9, hemoglobin 11.2, hematocrit 32.7, and platelet count 194,000. Sodium 130, potassium 4.4, chloride 96, CO2 30, BUN 25, creatinine 0.81. Glucose is 119. Calcium is 8.3. Chest x-ray shows a right-sided chest tube, no pneumothorax. Progress note dated April 19, 2025. 74-year-old male seen today in room 354. He is sitting in the chair next to the hospital bed. He is resting comfortably. He is awake and alert. No respiratory distress. Right chest tube remains in. There is a small leak. He is on room air. He is not receiving any IV fluids. Current laboratory data includes a white count 7.1, hemoglobin 1.6, hematocrit 34.9, and a normal platelet count. Sodium 135, potassium 3.3, chlorides 99, CO2 27, BUN 25, creatinine 0.71. Glucose 115. Calcium 8.5. Chest x-ray shows a stable right- sided chest tube, without obvious pneumothorax. Progress note dated April 20, 2025. 74-year-old male seen today in room 354. The patient is sitting in the chair next to the hospital bed. He is on room air. He is not receiving any IV fluids. His chest tube remains in place. He continues with a leak. Clinically, he is doing well. He denies any chest pain or chest discomfort. He is not having any shortness of breath. Current labs include a white count 7.3, hemoglobin 9.3, hematocrit 33.1, and a platelet count of 198,000. Sodium 134, potassium 4.3, chlorides 100, CO2 28, BUN 31, creatinine 1.13. Glucose is 100. Calcium is 9.1. Chest x-ray is largely unchanged. There are some right basilar atelectasis. The right chest tube remains in place. No pneumothorax is seen 04/21/2025, the patient is resting comfortably in bed. No significant respirat ory distress. The patient is doing well post his right middle lobectomy mediastinal lymph node dissection the patient is currently postop day #4. Using incentive spirometer. Pulling more than 1500 on his I-S. Right-sided chest tube still in place and is/to waterseal. Repeat chest x-ray from this morning shows no clear evidence of pneumothorax. Output from the chest tube is minimal. On a separate note, the patient has developed urinary retention and the patient will have a Kern catheter inserted. The bedside because of 4.4 with a hemoglobin of 10 and platelet count of 179. BUN 26 and a creatinine of 0.7. Sodium is at 131 and a potassium level is at 3.3. No other significant events overnight. The patient is currently on room air oxygen. 62,025, the patient is being seen for a follow-up. The patient is sitting up in a chair and the patient is calm and comfortable. Right-sided chest tube remains in place. There are some intermittent airleak as noted in the Pleur-evac. No significant respiratory distress. No significant chest pain. Hemodynamically stable. Repeat chest x-ray from today shows no evidence of any pneumothorax. However, based on the present of some limited air leak, we decided to keep the chest tube in place for now. Case was discussed with cardiothoracic surgery. Meanwhile, the patient has a Kern catheter in place. The white cell count is 5.2 with a hemoglobin 10.3 and a platelet count of 2 1. BUN 21 with a creatinine of 0.7. Sodium levels at 129 and a potassium level is at 4.5. He is currently on Flomax 0.4 mg once a day. Rest of the home medications will be resumed. He is postop day #5. On on 04/23/2025, the patient's chest x-ray shows a small right apical pneumothorax and the patient continues to have intermittent airleak as noted on in his chest tube Pleur-evac. He is using incentive spirometer. Denies having any significant chest pain or shortness of breath. He remains on room air oxygen. He remains on DuoNeb and he remains on a combination performance of Pulmicort nebulized treatments twice a day. Kern catheter remains in place and the patient is currently on Flomax. The white cell count is at 5.1 with a hemoglobin of 10 and platelet count of 204. Sodium level is 127, and the patient is receiving fluid restriction and the BUN is 14 with a creatinine of 0.6. No other significant events overnight. Patient is postop day #6 following a right middle lobe lobectomy. Objective - Vital Signs Vital signs: Vital Signs Temp 97.3 F L 04/23/25 08:00 Pulse 107 H 04/23/25 08:00 Resp 16 04/23/25 08:00 BP 92/64 04/23/25 08:00 Pulse Ox 96 04/23/25 08:00 FiO2 21 04/18/25 11:30 Intake & Output 04/22/25 04/23/25 04/23/25 18:59 06:59 18:59 Intake Total 1138 840 140 Output Total 530 350 Balance 608 490 140 Weight 81 kg Intake: Oral 1138 840 140 Output: Chest Tube Drainage 30 Chest Tube Right Lateral 30 Chest Urine 500 350 Uretheral (Kern) 500 350 Other: Voiding Method Indwelling Catheter Indwelling Catheter - Exam CONSTITUTIONAL: Appears comfortable, cooperative, no acute distress RESPIRATORY: Lungs sounds diminished bilaterally. Respirations even, nonlabored. Currently on room air with oxygen saturation 96%. Able to achieve 2000 mL on incentive spirometry. Strong cough. CARDIOVASCULAR: S1, S2 present. Regular rate and rhythm, sinus rhythm on telemetry. Palpable peripheral pulses bilaterally. No edema present. No calf pain or tenderness noted. SCDs present. GASTROINTESTINAL: Abdomen soft, nontender, nondistended. Active bowel sounds present 4 quadrants. Tolerating diet. GENITOURINARY: Kern present draining clear, yellow urine INTEGUMENTARY: Skin is warm and dry with evidence of good perfusion. Thoracic incision well approximated and covered with dry intact dressing. NEUROLOGIC: Cranial nerves II through XII intact MUSKULOSKELETAL: Able to move all extremities, strength equal bilaterally, gait normal PSYCHIATRIC: Alert and oriented to person place and time, appropriate affect, intact judgment and insight INVASIVE LINES AND TUBES: Right pleural chest tubes present to waterseal, remittent airleak present with coughing, minimal serosanguineous drainage in the last 24 hours - Labs CBC & Chem 7: 04/23/25 06:09 04/23/25 06:09 Labs: Abnormal Lab Results - Last 24 Hours (Table) 04/23/25 04/23/25 Range/Units 06:09 06:09 RBC 3.15 L (4.40-5.60) 10*6/uL Hgb 10.0 L (13.0-17.0) g/dL Hct 28.2 L (39.6-50.0) % Sodium 127 L (137-145) mmol/L Chloride 92 L (98-107) mmol/L Creatinine 0.63 L (0.66-1.25) mg/dL Assessment and Plan Plan: Stage IIIa squamous cell carcinoma of the right middle lobe. Status post induction chemotherapy, S/P right middle lobectomy with mediastinal lymph node dissection, and the patient is doing well. No evidence of any pneumothorax on the right side chest tube in place and there is tiny right apical pneumothorax. However, the patient is having some intermittent airleak while being on waterseal. As such, the chest tube will be kept in place. Patient is postop day # 6 Tiny right apical pneumothorax with intermittent airleak, currently on waterseal . Chronic and ongoing tobacco dependence. Hypertension. Hyperlipidemia. Urinary retention, a Kern catheter in place and the patient is currently on Flomax Plan: Clinically stable Right-sided chest tube attached to waterseal and there is no intermittent ongoing air leak, on waterseal Using incentive spirometer intermittent airleak and for that reason we decided to keep the chest tube in place for another 24 to 48 hours. Pain is under adequate control Patient is on room air oxygen Urinary retention and a Kern catheter was inserted and the patient is currently on Flomax Will continue to follow. Time with Patient: Greater than 30
--- NOTE | 2025-04-24 06:22 | XR ---
EXAMINATION TYPE: XR chest 2V DATE OF EXAM: 04/24/2025 CLINICAL INDICATION: Male, 74 years old with history of post lobectomy, TECHNIQUE: Frontal and lateral views of the chest are obtained. COMPARISON: Chest x-ray one day earlier FINDINGS: Persistent right-sided chest tube. Persistent right basilar linear atelectasis. Small right apical pneumothorax redemonstrated. Superior small amount of right-sided subcutaneous emphysema daryl ins present. Left lung remains clear. Cardiac silhouette size stable and within normal limits with atherosclerotic thoracic aorta. Osseous structures are intact. IMPRESSION: Stable Small right apical pneumothorax with right sided chest tube in place. [facility], , 04/24/2025 6:20 AM
[2025-04-24 07:16] LABS: HCT 30.1 % (39.6-50.0); HGB 10.7 g/dL (13.0-17.0); MCH 32.1 pg (27.0-32.0); MCHC 35.5 g/dL (32.0-37.0); MCV 90.4 fL (80.0-97.0); Mean Platelet Volume 10.9 fL (9.5-12.2); Platelet Count 224 10*3/uL (140-440); RBC 3.33 10*6/uL (4.40-5.60); RDW 11.9 % (11.5-14.5); WBC 6.06 10*3/uL (4.50-10.00)
[2025-04-24 07:26] LABS: African American GFR (CKD) >90 (>60 ml/min/1.73 sqM); Anion Gap 9 mmol/L; Blood Urea Nitrogen 15 mg/dL (9-20); Calcium 8.6 mg/dL (8.4-10.2); Carbon Dioxide 27 mmol/L (22-30); Chloride 88 mmol/L (98-107); Glucose 88 mg/dL (74-99); Non-African American GFR(CKD) >90 (>60 ml/min/1.73 sqM); Potassium 3.9 mmol/L (3.5-5.1); Sodium 124 mmol/L (137-145)
[2025-04-24] MEDS ORDERED: TOLVAPTAN 15 MG TABLET PO ONE (07:37)
--- NOTE | 2025-04-24 07:47 | P.PN ---
Subjective Progress Note Date: 04/24/25 Principal diagnosis: Stage IIIa squamous cell lung cancer right middle lobe status post induction chemotherapy with clinical complete response. History of hypertension, hyperlipidemia, BPH, previous tobacco dependence POD #7 robotic assisted thoracoscopic right middle lobectomy with mediastinal lymph node dissection Prolonged airleak greater than 5 days Hyponatremia, common complication after lobectomy for lung cancer The patient was seen and examined this morning sitting up in a recliner on the cardiac stepdown unit in no acute distress. States pain is controlled on current medication regimen. Remains in sinus rhythm, hemodynamically stable. Currently on room air with oxygen saturation in the mid 90s, able to achieve 2500 mL incentive spirometry. Right pleural chest tube present to [facility], minimal output in the last 24 hours, airleak seen this morning with conversation and coughing. Patient has been ambulatory in the hallway without difficulty. Patient patient has had urine retention, started on Flomax and Kern reinserted, patient seen by urology with recommendations for trial void before discharge. Chest x-ray, labs reviewed, sodium level decreasing. Fluid restrictions changed to 1200 mL in 24 hours yesterday. Samsca ordered for this morning. Patient has not been eating much as he states he does not like our food, again encouraged family to bring food from home, supplements ordered. Objective - Vital Signs Vital signs: Vital Signs Temp 98.6 F 04/24/25 04:00 Pulse 95 04/24/25 04:00 Resp 16 04/24/25 04:00 BP 115/83 04/24/25 04:00 Pulse Ox 94 L 04/24/25 04:00 FiO2 21 04/18/25 11:30 Intake & Output 04/23/25 04/24/25 04/24/25 18:59 06:59 18:59 Intake Total 1214 10 236 Output Total 590 Balance 1214 -580 236 Weight 81 kg Intake: IV 10 Invasive Line 4 10 Oral 1214 236 Output: Drainage 70 Right Medial Chest 70 Urine 520 Other: Voiding Method Indwelling Catheter Indwelling Catheter # Voids 0 - Exam CONSTITUTIONAL: Appears comfortable, cooperative, no acute distress RESPIRATORY: Lungs sounds diminished bilaterally. Respirations even, nonlabored. Currently on room air with oxygen saturation 94%. Able to achieve 2500 mL on incentive spirometry. Strong cough. CARDIOVASCULAR: S1, S2 present. Regular rate and rhythm, sinus rhythm on telemetry. Palpable peripheral pulses bilaterally. No edema present. No calf pain or tenderness noted. SCDs present. GASTROINTESTINAL: Abdomen soft, nontender, nondistended. Active bowel sounds present 4 quadrants. Tolerating minimal diet. Positive bowel movement 04/23 al though not documented in [facility] GENITOURINARY: Kern present draining clear, yellow urine, output 520 mL in the last 24 hours INTEGUMENTARY: Skin is warm and dry with evidence of good perfusion. Thoracic incision well approximated and covered with dry intact dressing. NEUROLOGIC: Cranial nerves II through XII intact MUSKULOSKELETAL: Able to move all extremities, strength equal bilaterally, gait normal PSYCHIATRIC: Alert and oriented to person place and time, appropriate affect, intact judgment and insight INVASIVE LINES AND TUBES: Right pleural chest tubes present to waterseal, intermittent airleak present with conversation and coughing, minimal serosanguineous drainage in the last 24 hours - Allied health notes Allied health notes reviewed: nursing - Labs CBC & Chem 7: 04/24/25 06:24 04/24/25 06:24 Labs: Abnormal Lab Results - Last 24 Hours (Table) 04/24/25 04/24/25 Range/Units 06:24 06:24 RBC 3.33 L (4.40-5.60) 10*6/uL Hgb 10.7 L (13.0-17.0) g/dL Hct 30.1 L (39.6-50.0) % MCH 32.1 H (27.0-32.0) pg Sodium 124 L (137-145) mmol/L Chloride 88 L (98-107) mmol/L Creatinine 0.65 L (0.66-1.25) mg/dL - Imaging and Cardiology Chest x-ray: report reviewed, image reviewed Assessment and Plan Assessment: Stage IIIa squamous cell lung cancer right middle lobe status post induction chemotherapy with clinical complete response, status post right middle lobectomy, final pathology consistent with complete resolution of cancer from neoadjuvant therapy Prolonged air leak >5 days Hyponatremia History of hypertension Hyperlipidemia BPH Previous tobacco dependence Plan: Continue chest tube to waterseal until airleak completely resolves Continue Flomax, Kern catheter reinserted, urology recommends trial void before discharge Fluid restrictions 1200 mL/24 hours, Samsca ordered for this morning Oral nutrition encouraged, patient encouraged to have brought from home, supplements added Continue to maximize medical therapy with home medications Increase activity, ambulate as tolerated Encourage incentive spirometry use, bronchodilators per pulmonology Pain control with current medication regimen Will monitor daily labs and x-rays More recommendations to follow
[2025-04-24] MEDS: lisinopriL 20 MG TAB PO SCH (09:21)
[2025-04-24] MEDS: SODIUM CHLORIDE TAB 1 GM TAB PO STA (12:24)
[2025-04-24 13:06] VITALS: BMI 27.1
--- NOTE | 2025-04-24 13:45 | P.NPCON ---
History of Present Illness - Reason for Consult hyponatremia - History of Present Illness Patient is a 74-year-old male with history of squamous cell carcinoma of right lung status post chemotherapy in February 2025. Status post elective right middle lobectomy on 04/17/2025. Serum sodium was 131 on initial admission and has progressively decreased to 124 today. Urine osmolality 659 and urine sodium of 120. Patient was maintained on lisinopril/hydrochlorothiazide which was discontinued yesterday. Blood pressure noted to be on the lower side with occasional systolic in the 90s. Patient also had urine retention for which a Kern catheter has been placed. Past Medical History Past Medical History: Cancer, Hyperlipidemia, Hypertension, Prostate Disorder Additional Past Medical History / Comment(s): rt middle lobe lung cancer, received chemo -last tx 03-04-25,no radiation-follows w/ Dr Yousuf Momin,enlarged prostate History of Any Multi-Drug Resistant Organisms: MRSA Date of last positivie culture/infection: 06/29/2015 MDRO Source:: NOSE Past Surgical History: Tonsillectomy Additional Past Surgical History / Comment(s): COLONOSCOPY,bronchoscopy. SINUS SX Past Anesthesia/Blood Transfusion Reactions: No Reported Reaction Additional Past Anesthesia/Blood Transfusion Reaction / Comment(s): no hx blood transfusion Smoking Status: Former smoker - Past Family History Sister(s) Family Medical History: Cancer, Diabetes Mellitus Additional Family Medical History / Comment(s): breast CA,uterine CA,Lung and brain CA Medications and Allergies Home Medications Medication Instructions Recorded Confirmed Type Aspirin [Adult Low Dose Aspirin EC] 81 mg PO DAILY 05/31/23 04/17/25 History Lisinopril-Hctz 20-25 mg 1 tab PO QAM 05/31/23 04/17/25 History [Zestoretic 20-25] Metoprolol Tartrate [Lopressor] 100 mg PO BID 05/31/23 04/17/25 History Mv-Min/Folic/K1/Lycopen/Lutein 1 each PO DAILY 05/31/23 04/17/25 History [Centrum Silver Men Tablet] Rosuvastatin Calcium 5 mg PO DAILY 05/31/23 04/17/25 History Saw Maiden 500 mg PO DAILY 05/31/23 04/17/25 History Hydrocortisone [Cortef] 10 mg PO BID 04/10/25 04/17/25 History Allergies Allergy/AdvReac Type Severity Reaction Status Date / Time No Known Allergies Allergy Verified 04/17/25 06:09 Physical Exam Vitals: Vital Signs Temp Pulse Resp BP Pulse Ox 04/24/25 12:25 98.4 F 79 18 118/72 92 L 04/24/25 08:15 98.2 F 107 H 18 115/73 95 04/24/25 04:00 98.6 F 95 16 115/83 94 L 04/24/25 02:00 16 04/24/25 00:00 98.8 F 88 18 108/65 93 L 04/23/25 20:00 99.3 F 98 18 132/74 95 04/23/25 16:00 90 16 91/61 96 Intake and Output 04/23/25 04/24/25 04/24/25 22:59 06:59 14:59 Intake Total 966 590 Output Total 307 283 Balance 659 -283 590 Intake: IV 10 Invasive Line 4 10 Oral 956 590 Output: Drainage 7 63 Right Medial Chest 7 63 Urine 300 220 Other: Voiding Method Indwelling Catheter Indwelling Catheter Indwelling Catheter # Voids 0 Weight 81 kg 81 kg Patient is awake, comfortable, no acute distress Examination of the heart S1 and S2 Examination of the lungs bilateral breath sounds are heard, right chest tube Abdomen is soft nontender Examination of lower extremities does not show any evidence of edema [employer] exam grossly intact Results - Lab Results Most recent lab results Calcium 8.6 mg/dL (8.4-10.2) 04/24/25 06:24 04/24/25 06:24 04/24/25 06:24 Assessment and Plan Assessment: 1. Hyponatremia, appears euvolemic however a few low blood pressure readings were documented over the last few days. Poor oral intake noted. Urine osmolality 659 with urine sodium of 120 suggesting underlying SIADH. Maintained on fluid restriction. 2. Stage IIIa squamous cell carcinoma right middle lobe status post middle lobectomy 3. Hypertension maintained on lisinopril 4. Urine retention with history of BPH currently with indwelling Kern catheter which was reinserted. Patient is maintained on Flomax. Plan: Sodium chloride tab x 1 Repeat sodium later this afternoon Continue with fluid restriction Will proceed with Samsca if no improvement in serum sodium. Encouraged increased oral intake particularly protein. Thank you for the consultation. Will continue to follow the patient with you during his hospitalization.
--- NOTE | 2025-04-24 16:59 | P.PN ---
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 He completed induction chemotherapy and his last chemotherapy was March 04, 2025. A repeat PET scan demonstrated complete response with no uptake in the sub carinal region and immediate minimal uptake in the lung with complete resolution of the previously observed lung mass. The patient still elected to undergo a right middle lobectomy to complete the staging and minimize the risk of recurrence. He was brought in electively today and did indeed undergo a robotic assisted right middle lobectomy with mediastinal lymph node dissection with Dr. Garcia. He is seen in consultation on the selective care unit. He is currently resting fairly comfortably in bed. Awake and alert in no acute distress. Right sided chest tube remains in place to Pleur-evac and low continuous wall suction at -20 cm of water. There is a positive bubbling leak present. Chest x-ray reveals right thoracotomy tube in place with no evidence of significant pneumothorax. He is maintaining O2 saturations up to 100% on 2 L/min per nasal cannula. He has been afebrile. Hemodynamically stable. Progress note dated April 18, 2025. 74-year-old male who was seen yesterday in consultation. Please see my note above. He is postoperative day #1, status post right middle lobectomy. The patient seems to be doing relatively well. He seen today in room 354. He is on room air. No IV fluids. He does have a small leak from the right sided chest tube. Current laboratory data includes a white count of 1.9, hemoglobin 11.2, hematocrit 32.7, and platelet count 194,000. Sodium 130, potassium 4.4, chloride 96, CO2 30, BUN 25, creatinine 0.81. Glucose is 119. Calcium is 8.3. Chest x-ray shows a right-sided chest tube, no pneumothorax. Progress note dated April 19, 2025. 74-year-old male seen today in room 354. He is sitting in the chair next to the hospital bed. He is resting comfortably. He is awake and alert. No respiratory distress. Right chest tube remains in. There is a small leak. He is on room air. He is not receiving any IV fluids. Current laboratory data includes a white count 7.1, hemoglobin 1.6, hematocrit 34.9, and a normal platelet count. Sodium 135, potassium 3.3, chlorides 99, CO2 27, BUN 25, creatinine 0.71. Glucose 115. Calcium 8.5. Chest x-ray shows a stable right- sided chest tube, without obvious pneumothorax. Progress note dated April 20, 2025. 74-year-old male seen today in room 354. The patient is sitting in the chair next to the hospital bed. He is on room air. He is not receiving any IV fluids. His chest tube remains in place. He continues with a leak. Clinically, he is doing well. He denies any chest pain or chest discomfort. He is not having any shortness of breath. Current labs include a white count 7.3, hemoglobin 9.3, hematocrit 33.1, and a platelet count of 198,000. Sodium 134, potassium 4.3, chlorides 100, CO2 28, BUN 31, creatinine 1.13. Glucose is 100. Calcium is 9.1. Chest x-ray is largely unchanged. There are some right basilar atelectasis. The right chest tube remains in place. No pneumothorax is seen 04/21/2025, the patient is resting comfortably in bed. No significant respirat ory distress. The patient is doing well post his right middle lobectomy mediastinal lymph node dissection the patient is currently postop day #4. Using incentive spirometer. Pulling more than 1500 on his I-S. Right-sided chest tube still in place and is/to waterseal. Repeat chest x-ray from this morning shows no clear evidence of pneumothorax. Output from the chest tube is minimal. On a separate note, the patient has developed urinary retention and the patient will have a Kern catheter inserted. The bedside because of 4.4 with a hemoglobin of 10 and platelet count of 179. BUN 26 and a creatinine of 0.7. Sodium is at 131 and a potassium level is at 3.3. No other significant events overnight. The patient is currently on room air oxygen. 62,025, the patient is being seen for a follow-up. The patient is sitting up in a chair and the patient is calm and comfortable. Right-sided chest tube remains in place. There are some intermittent airleak as noted in the Pleur-evac. No significant respiratory distress. No significant chest pain. Hemodynamically stable. Repeat chest x-ray from today shows no evidence of any pneumothorax. However, based on the present of some limited air leak, we decided to keep the chest tube in place for now. Case was discussed with cardiothoracic surgery. Meanwhile, the patient has a Kern catheter in place. The white cell count is 5.2 with a hemoglobin 10.3 and a platelet count of 2 1. BUN 21 with a creatinine of 0.7. Sodium levels at 129 and a potassium level is at 4.5. He is currently on Flomax 0.4 mg once a day. Rest of the home medications will be resumed. He is postop day #5. On on 04/23/2025, the patient's chest x-ray shows a small right apical pneumothorax and the patient continues to have intermittent airleak as noted on in his chest tube Pleur-evac. He is using incentive spirometer. Denies having any significant chest pain or shortness of breath. He remains on room air oxygen. He remains on DuoNeb and he remains on a combination performance of Pulmicort nebulized treatments twice a day. Kern catheter remains in place and the patient is currently on Flomax. The white cell count is at 5.1 with a hemoglobin of 10 and platelet count of 204. Sodium level is 127, and the patient is receiving fluid restriction and the BUN is 14 with a creatinine of 0.6. No other significant events overnight. Patient is postop day #6 following a right middle lobe lobectomy. 04/24/2025, the patient is being seen for a follow-up. No new complaints. The patient is calm and comfortable. He continues to have intermittent airleak to the right side of chest tube which is attached to waterseal. The patient has no chest pain. The chest x-ray from today shows no evidence of any pneumothorax. However, there is some ongoing electrolyte disturbance as the patient's sodium level is currently 124 with a BUN of 15 and a creatinine of 0.65. Chloride level is at 88. The white cell count is 6 with a hemoglobin 10.7 and a platelet count of 224. The patient was seen by nephrology regarding hyponatremia. The patient was started on sodium tablets. Patient is being considered for Samsca if no improvement in the sodium level. Otherwise, no new complaints for now.On a separate note, the patient's right middle lobe sample that was obtained surgically showed no evidence of malignancy. Mediastinal lymph nodes were also negative. Objective - Vital Signs Vital signs: Vital Signs Temp 98.2 F 04/24/25 08:15 Pulse 107 H 04/24/25 08:15 Resp 18 04/24/25 08:15 BP 115/73 04/24/25 08:15 Pulse Ox 95 04/24/25 08:15 FiO2 21 04/18/25 11:30 Intake & Output 04/23/25 04/24/25 04/24/25 18:59 06:59 18:59 Intake Total 1214 10 236 Output Total 590 Balance 1214 -580 236 Weight 81 kg Intake: IV 10 Invasive Line 4 10 Oral 1214 236 Output: Drainage 70 Right Medial Chest 70 Urine 520 Other: Voiding Method Indwelling Catheter Indwelling Catheter Indwelling Catheter # Voids 0 - Exam CONSTITUTIONAL: Appears comfortable, cooperative, no acute distress RESPIRATORY: Lungs sounds diminished bilaterally. Respirations even, nonlabored. Currently on room air with oxygen saturation 96%. Able to achieve 2000 mL on incentive spirometry. Strong cough. CARDIOVASCULAR: S1, S2 present. Regular rate and rhythm, sinus rhythm on telemetry. Palpable peripheral pulses bilaterally. No edema present. No calf pain or tenderness noted. SCDs present. GASTROINTESTINAL: Abdomen soft, nontender, nondistended. Active bowel sounds present 4 quadrants. Tolerating diet. GENITOURINARY: Kern present draining clear, yellow urine INTEGUMENTARY: Skin is warm and dry with evidence of good perfusion. Thoracic incision well approximated and covered with dry intact dressing. NEUROLOGIC: Cranial nerves II through XII intact MUSKULOSKELETAL: Able to move all extremities, strength equal bilaterally, gait normal PSYCHIATRIC: Alert and oriented to person place and time, appropriate affect, intact judgment and insight INVASIVE LINES AND TUBES: Right pleural chest tubes present to waterseal, remittent airleak present with coughing, minimal serosanguineous drainage in the last 24 hours - Labs CBC & Chem 7: 04/24/25 06:24 04/24/25 15:39 Labs: Abnormal Lab Results - Last 24 Hours (Table) 04/24/25 04/24/25 Range/Units 06:24 06:24 RBC 3.33 L (4.40-5.60) 10*6/uL Hgb 10.7 L (13.0-17.0) g/dL Hct 30.1 L (39.6-50.0) % MCH 32.1 H (27.0-32.0) pg Sodium 124 L (137-145) mmol/L Chloride 88 L (98-107) mmol/L Creatinine 0.65 L (0.66-1.25) mg/dL Assessment and Plan Plan: Stage IIIa squamous cell carcinoma of the right middle lobe. Status post induction chemotherapy, S/P right middle lobectomy with mediastinal lymph node dissection, and the patient is doing well. No evidence of any pneumothorax on the right side chest tube in place and there is tiny right apical pneumothorax. However, the patient is having some intermittent airleak while being on waterseal. As such, the chest tube will be kept in place. Patient is postop day # 7 Tiny right apical pneumothorax with intermittent airleak, currently on waterseal., Condition is unchanged when compared to yesterday and the patient remains on room air oxygen. Chronic and ongoing tobacco dependence. Hypertension. Hyperlipidemia. Urinary retention, a Kern catheter in place and the patient is currently on Flomax Hypochloremic hyponatremia Plan: Clinically stable Right-sided chest tube attached to waterseal and there is no intermittent ongoing air leak, on waterseal Using incentive spirometer intermittent airleak and for that reason we decided to keep the chest tube in place for another 24 to 48 hours. Pain is under adequate control Patient is on room air oxygen Urinary retention and a Kern catheter was inserted and the patient is currently on Flomax [facility]uid restriction[facility] on the case Will continue to follow. Will consider discharging this patient home with a chest tube and Heimlich valve there is no improvement of air leak. Final pathology from the right middle lobe sample revealed no evidence of any residual malignancy in the lungs and in the mediastinal lymph nodes.
[2025-04-24] MEDS: SODIUM CHLORIDE TAB 1 GM TAB PO SCH (23:25)
[2025-04-24] MEDS: diphenhydrAMINE 25 MG CAP PO STA (23:25)
--- NOTE | 2025-04-25 07:02 | XR ---
EXAMINATION TYPE: XR chest 1V DATE OF EXAM: 04/25/2025 CLINICAL INDICATION: Male, 74 years old with history of Pneumothorax post lobectomy, progress study. TECHNIQUE: Single AP portable upright view of the chest is obtained. COMPARISON: Chest x-ray from one day earlier FINDINGS: Persistent right-sided chest tube. Persistent right basilar linear atelectasis and/or scarr ing. Tiny right atypical pneumothorax is improved from prior. Left lung remains clear. Cardiac silhouette size stable and within normal limits with atherosclerotic thoracic aorta. Osseous structures are intact. IMPRESSION: Improved tiny right apical pneumothorax with right sided chest tube in place. [facility], , 04/25/2025 7:00 AM
[2025-04-25 07:34] LABS: HCT 28.9 % (39.6-50.0); HGB 10.3 g/dL (13.0-17.0); MCH 32.2 pg (27.0-32.0); MCHC 35.6 g/dL (32.0-37.0); MCV 90.3 fL (80.0-97.0); Platelet Count 230 10*3/uL (140-440); RDW 12.1 % (11.5-14.5)
[2025-04-25 07:43] LABS: African American GFR (CKD) >90 (>60 ml/min/1.73 sqM); Anion Gap 5 mmol/L; Blood Urea Nitrogen 16 mg/dL (9-20); Calcium 8.1 mg/dL (8.4-10.2); Carbon Dioxide 27 mmol/L (22-30); Chloride 94 mmol/L (98-107); Glucose 102 mg/dL (74-99); Non-African American GFR(CKD) >90 (>60 ml/min/1.73 sqM); Sodium 126 mmol/L (137-145)
--- NOTE | 2025-04-25 09:57 | P.PN ---
Subjective Progress Note Date: 04/25/25 Principal diagnosis: Stage IIIa squamous cell lung cancer right middle lobe status post induction chemotherapy with clinical complete response. History of hypertension, hyperlipidemia, BPH, previous tobacco dependence POD #8 robotic assisted thoracoscopic right middle lobectomy with mediastinal lymph node dissection Prolonged airleak greater than 5 days Hyponatremia, common complication after lobectomy for lung cancer Acute urine retention requiring Kern catheter replacement, initiation of Flomax, somewhat expected from known previous history The patient was seen and examined this morning sitting up in bed on the cardiac stepdown unit in no acute distress. States pain is controlled on current medication regimen. Remains in sinus rhythm, hemodynamically stable. Currently on room air with oxygen saturation in the mid 90s, able to achieve 2500 mL incentive spirometry. Right pleural chest tube present to [facility], minimal output in the last 24 hours, minimal airleak seen this morning with coughing. Patient has been ambulatory in the hallway without difficulty. Patient patient has had urine retention, started on Flomax and Kern reinserted, patient seen by urology with recommendations for trial void before discharge, will discontinue Kern today, discussed with nursing. Chest x-ray, labs reviewed. Fluid restrictions at 1200 mL in 24 hours yesterday. Nephrology started patient on sodium tabs. Patient has been eating a bit more, again encouraged family to bring food from home, supplements ordered. Objective - Vital Signs Vital signs: Vital Signs Temp 98.4 F 04/25/25 08:00 Pulse 102 H 04/25/25 08:00 Resp 16 04/25/25 08:00 BP 137/78 04/25/25 08:00 Pulse Ox 95 04/25/25 08:00 FiO2 21 04/18/25 11:30 Intake & Output 04/24/25 04/25/25 04/25/25 18:59 06:59 18:59 Intake Total 1066 Output Total 385 330 200 Balance 681 -330 -200 Weight 81 kg 81 kg Intake: Oral 1066 Output: Chest Tube Drainage 10 Chest Tube Right Lateral 10 Chest Drainage 35 120 Right Medial Chest 35 120 Urine 350 200 200 Uretheral (Kern) 100 Other: Voiding Method Indwelling Catheter Indwelling Catheter Indwelling Catheter - Exam CONSTITUTIONAL: Appears comfortable, cooperative, no acute distress RESPIRATORY: Lungs sounds diminished bilaterally. Respirations even, nonlabored. Currently on room air with oxygen saturation 95%. Able to achieve 2500 mL on incentive spirometry. Strong cough. CARDIOVASCULAR: S1, S2 present. Regular rate and rhythm, sinus rhythm on telemetry. Palpable peripheral pulses bilaterally. No edema present. No calf pain or tenderness noted. SCDs present. GASTROINTESTINAL: Abdomen soft, nontender, nondistended. Active bowel sounds present 4 quadrants. Tolerating minimal diet. Positive bowel movement 6[facility]5 [facility] GENITOURINARY: Kern present draining clear, yellow urine, output 650 mL in the last 24 hours INTEGUMENTARY: Skin is warm and dry with evidence of good perfusion. Thoracic incision well approximated and covered with dry intact dressing. NEUROLOGIC: Cranial nerves II through XII intact MUSKULOSKELETAL: Able to move all extremities, strength equal bilaterally, gait normal PSYCHIATRIC: Alert and oriented to person place and time, appropriate affect, intact judgment and insight INVASIVE LINES AND TUBES: Right pleural chest tubes present to waterseal, intermittent airleak present with coughing, minimal serosanguineous drainage in the last 24 hours - Allied health notes Allied health notes reviewed: nursing - Labs CBC & Chem 7: 04/25/25 06:11 04/25/25 06:11 Labs: Abnormal Lab Results - Last 24 Hours (Table) 04/24/25 04/25/25 04/25/25 Range/Units 15:39 06:11 06:11 RBC 3.20 L (4.40-5.60) 10*6/uL Hgb 10.3 L (13.0-17.0) g/dL Hct 28.9 L (39.6-50.0) % MCH 32.2 H (27.0-32.0) pg Sodium 126 L 126 L (137-145) mmol/L Chloride 94 L (98-107) mmol/L Creatinine 0.65 L (0.66-1.25) mg/dL Glucose 102 H (74-99) mg/dL Calcium 8.1 L (8.4-10.2) mg/dL - Imaging and Cardiology Chest x-ray: report reviewed, image reviewed Assessment and Plan Assessment: Stage IIIa squamous cell lung cancer right middle lobe status post induction chemotherapy with clinical complete response, status post right middle lobectom y, final pathology consistent with complete resolution of cancer from neoadjuvant therapy Prolonged air leak >5 days Hyponatremia Acute urine retention History of hypertension Hyperlipidemia BPH Previous tobacco dependence Plan: Continue chest tube to waterseal until airleak completely resolves, patient may possibly be discharged to home with Heimlich valve Continue Flomax, will discontinue Kern today for trial void per urology recommendations Fluid restrictions 1200 mL/24 hours, sodium tablets per nephrology recommendations, would like sodium level 128 or greater prior to discharge Oral nutrition encouraged, patient encouraged to have brought from home, supplements added Continue to maximize medical therapy with home medications Increase activity, ambulate as tolerated Encourage incentive spirometry use, bronchodilators per pulmonology Pain control with current medication regimen Will monitor daily labs and x-rays More recommendations to follow
--- NOTE | 2025-04-25 15:10 | P.PN ---
Subjective Patient is seen for follow-up for hyponatremia. Status post sodium chloride tabs yesterday and sodium improved to 126. Labs are pending from today No significant complaints today. Objective - Vital Signs Vital signs: Vital Signs Temp 98.1 F 04/25/25 11:20 Pulse 96 04/25/25 11:20 Resp 16 04/25/25 11:20 BP 121/77 04/25/25 11:20 Pulse Ox 94 L 04/25/25 11:20 FiO2 21 04/18/25 11:30 Intake & Output 04/24/25 04/25/25 04/25/25 18:59 06:59 18:59 Intake Total 1066 358 Output Total 385 330 200 Balance 681 -330 158 Weight 81 kg 81 kg Intake: Oral 1066 358 Output: Chest Tube Drainage 10 Chest Tube Right Lateral 10 Chest Drainage 35 120 Right Medial Chest 35 120 Urine 350 200 200 Uretheral (Kern) 100 Other: Voiding Method Indwelling Catheter Indwelling Catheter Indwelling Catheter - Exam Patient is awake, comfortable, no acute distress Examination of the heart S1 and S2 Examination of the lungs bilateral breath sounds are heard Abdomen is soft nontender Examination lower extremities shows no significant edema [employer] exam grossly intact - Labs CBC & Chem 7: 04/25/25 06:11 04/25/25 06:11 Labs: Abnormal Lab Results - Last 24 Hours (Table) 04/24/25 04/25/25 04/25/25 Range/Units 15:39 06:11 06:11 RBC 3.20 L (4.40-5.60) 10*6/uL Hgb 10.3 L (13.0-17.0) g/dL Hct 28.9 L (39.6-50.0) % MCH 32.2 H (27.0-32.0) pg Sodium 126 L 126 L (137-145) mmol/L Chloride 94 L (98-107) mmol/L Creatinine 0.65 L (0.66-1.25) mg/dL Glucose 102 H (74-99) mg/dL Calcium 8.1 L (8.4-10.2) mg/dL Assessment and Plan Assessment: 1. Hyponatremia, appears euvolemic however a few low blood pressure readings were documented over the last few days. Poor oral intake noted. Sodium improved with sodium chloride tabs. Urine osmolality 659 with urine sodium of 120 suggesting underlying SIADH. Maintained on fluid restriction. 2. Stage IIIa squamous cell carcinoma right middle lobe status post middle lobectomy 3. Hypertension maintained on lisinopril 4. Urine retention with history of BPH currently with indwelling Kern catheter which was reinserted. Patient is maintained on Flomax. Plan: Continue with sodium chloride tabs Follow-up on sodium from today If no further improvement patient will be given Samsca. Continue with fluid restriction Encouraged increased oral intake particularly protein.
[2025-04-25] MEDS: TOLVAPTAN 15 MG TABLET PO ONE (16:42)
--- NOTE | 2025-04-25 19:42 | P.PN ---
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 He completed induction chemotherapy and his last chemotherapy was March 04, 2025. A repeat PET scan demonstrated complete response with no uptake in the sub carinal region and immediate minimal uptake in the lung with complete resolution of the previously observed lung mass. The patient still elected to undergo a right middle lobectomy to complete the staging and minimize the risk of recurrence. He was brought in electively today and did indeed undergo a robotic assisted right middle lobectomy with mediastinal lymph node dissection with Dr. Garcia. He is seen in consultation on the selective care unit. He is currently resting fairly comfortably in bed. Awake and alert in no acute distress. Right sided chest tube remains in place to Pleur-evac and low continuous wall suction at -20 cm of water. There is a positive bubbling leak present. Chest x-ray reveals right thoracotomy tube in place with no evidence of significant pneumothorax. He is maintaining O2 saturations up to 100% on 2 L/min per nasal cannula. He has been afebrile. Hemodynamically stable. Progress note dated April 18, 2025. 74-year-old male who was seen yesterday in consultation. Please see my note above. He is postoperative day #1, status post right middle lobectomy. The patient seems to be doing relatively well. He seen today in room 354. He is on room air. No IV fluids. He does have a small leak from the right sided chest tube. Current laboratory data includes a white count of 1.9, hemoglobin 11.2, hematocrit 32.7, and platelet count 194,000. Sodium 130, potassium 4.4, chloride 96, CO2 30, BUN 25, creatinine 0.81. Glucose is 119. Calcium is 8.3. Chest x-ray shows a right-sided chest tube, no pneumothorax. Progress note dated April 19, 2025. 74-year-old male seen today in room 354. He is sitting in the chair next to the hospital bed. He is resting comfortably. He is awake and alert. No respiratory distress. Right chest tube remains in. There is a small leak. He is on room air. He is not receiving any IV fluids. Current laboratory data includes a white count 7.1, hemoglobin 1.6, hematocrit 34.9, and a normal platelet count. Sodium 135, potassium 3.3, chlorides 99, CO2 27, BUN 25, creatinine 0.71. Glucose 115. Calcium 8.5. Chest x-ray shows a stable right- sided chest tube, without obvious pneumothorax. Progress note dated April 20, 2025. 74-year-old male seen today in room 354. The patient is sitting in the chair next to the hospital bed. He is on room air. He is not receiving any IV fluids. His chest tube remains in place. He continues with a leak. Clinically, he is doing well. He denies any chest pain or chest discomfort. He is not having any shortness of breath. Current labs include a white count 7.3, hemoglobin 9.3, hematocrit 33.1, and a platelet count of 198,000. Sodium 134, potassium 4.3, chlorides 100, CO2 28, BUN 31, creatinine 1.13. Glucose is 100. Calcium is 9.1. Chest x-ray is largely unchanged. There are some right basilar atelectasis. The right chest tube remains in place. No pneumothorax is seen 04/21/2025, the patient is resting comfortably in bed. No significant respirat ory distress. The patient is doing well post his right middle lobectomy mediastinal lymph node dissection the patient is currently postop day #4. Using incentive spirometer. Pulling more than 1500 on his I-S. Right-sided chest tube still in place and is/to waterseal. Repeat chest x-ray from this morning shows no clear evidence of pneumothorax. Output from the chest tube is minimal. On a separate note, the patient has developed urinary retention and the patient will have a Kern catheter inserted. The bedside because of 4.4 with a hemoglobin of 10 and platelet count of 179. BUN 26 and a creatinine of 0.7. Sodium is at 131 and a potassium level is at 3.3. No other significant events overnight. The patient is currently on room air oxygen. 62,025, the patient is being seen for a follow-up. The patient is sitting up in a chair and the patient is calm and comfortable. Right-sided chest tube remains in place. There are some intermittent airleak as noted in the Pleur-evac. No significant respiratory distress. No significant chest pain. Hemodynamically stable. Repeat chest x-ray from today shows no evidence of any pneumothorax. However, based on the present of some limited air leak, we decided to keep the chest tube in place for now. Case was discussed with cardiothoracic surgery. Meanwhile, the patient has a Kern catheter in place. The white cell count is 5.2 with a hemoglobin 10.3 and a platelet count of 2 1. BUN 21 with a creatinine of 0.7. Sodium levels at 129 and a potassium level is at 4.5. He is currently on Flomax 0.4 mg once a day. Rest of the home medications will be resumed. He is postop day #5. On on 04/23/2025, the patient's chest x-ray shows a small right apical pneumothorax and the patient continues to have intermittent airleak as noted on in his chest tube Pleur-evac. He is using incentive spirometer. Denies having any significant chest pain or shortness of breath. He remains on room air oxygen. He remains on DuoNeb and he remains on a combination performance of Pulmicort nebulized treatments twice a day. Kern catheter remains in place and the patient is currently on Flomax. The white cell count is at 5.1 with a hemoglobin of 10 and platelet count of 204. Sodium level is 127, and the patient is receiving fluid restriction and the BUN is 14 with a creatinine of 0.6. No other significant events overnight. Patient is postop day #6 following a right middle lobe lobectomy. 04/24/2025, the patient is being seen for a follow-up. No new complaints. The patient is calm and comfortable. He continues to have intermittent airleak to the right side of chest tube which is attached to waterseal. The patient has no chest pain. The chest x-ray from today shows no evidence of any pneumothorax. However, there is some ongoing electrolyte disturbance as the patient's sodium level is currently 124 with a BUN of 15 and a creatinine of 0.65. Chloride level is at 88. The white cell count is 6 with a hemoglobin 10.7 and a platelet count of 224. The patient was seen by nephrology regarding hyponatremia. The patient was started on sodium tablets. Patient is being considered for Samsca if no improvement in the sodium level. Otherwise, no new complaints for now.On a separate note, the patient's right middle lobe sample that was obtained surgically showed no evidence of malignancy. Mediastinal lymph nodes were also negative. On 04/25/2025, the patient is being seen for a follow-up with the patient remains on room air oxygen. He has no specific complaints. Repeat chest x-ray from today showing a small right apical pneumothorax. On today's evaluation, the patient is right-sided chest tube is in place and there is some ongoing intermittent mild amount of airleak with coughing. Otherwise, the output from the chest tube is minimal. The patient remains in normal sinus rhythm. The patient's Kern catheter has been removed and the patient remains on Flomax. He remains on fluid restriction and sodium levels currently at 126 and a potassium is at 4. BUN is 16 with a creatinine 0.5. The white cell count is 5.8 with a hemoglobin of 10.3. No other complaints otherwise for now. Objective - Vital Signs Vital signs: Vital Signs Temp 98.4 F 04/25/25 08:00 Pulse 102 H 04/25/25 08:00 Resp 16 04/25/25 08:00 BP 137/78 04/25/25 08:00 Pulse Ox 95 04/25/25 08:00 FiO2 21 04/18/25 11:30 Intake & Output 04/24/25 04/25/25 04/25/25 18:59 06:59 18:59 Intake Total 1066 Output Total 385 330 200 Balance 681 -330 -200 Weight 81 kg 81 kg Intake: Oral 1066 Output: Chest Tube Drainage 10 Chest Tube Right Lateral 10 Chest Drainage 35 120 Right Medial Chest 35 120 Urine 350 200 200 Uretheral (Kern) 100 Other: Voiding Method Indwelling Catheter Indwelling Catheter Indwelling Catheter - Exam CONSTITUTIONAL: Appears comfortable, cooperative, no acute distress RESPIRATORY: Lungs sounds diminished bilaterally. Respirations even, nonlabored. Currently on room air with oxygen saturation 95%. Able to achieve 2500 mL on incentive spirometry. Strong cough. CARDIOVASCULAR: S1, S2 present. Regular rate and rhythm, sinus rhythm on telemetry. Palpable peripheral pulses bilaterally. No edema present. No calf pain or tenderness noted. SCDs present. GASTROINTESTINAL: Abdomen soft, nontender, nondistended. Active bowel sounds present 4 quadrants. Tolerating minimal diet. Positive bowel movement 6/5 although [facility] GENITOURINARY: Kern present draining clear, yellow urine, output 650 mL in the last 24 hours INTEGUMENTARY: Skin is warm and dry with evidence of good perfusion. Thoracic incision well approximated and covered with dry intact dressing. NEUROLOGIC: Cranial nerves II through XII intact MUSKULOSKELETAL: Able to move all extremities, strength equal bilaterally, gait normal PSYCHIATRIC: Alert and oriented to person place and time, appropriate affect, intact judgment and insight INVASIVE LINES AND TUBES: Right pleural chest tubes present to waterseal, intermittent airleak present with coughing, minimal serosanguineous drainage in the last 24 hours - Labs CBC & Chem 7: 04/25/25 06:11 04/25/25 06:11 Labs: Abnormal Lab Results - Last 24 Hours (Table) 04/24/25 04/25/25 04/25/25 Range/Units 15:39 06:11 06:11 RBC 3.20 L (4.40-5.60) 10*6/uL Hgb 10.3 L (13.0-17.0) g/dL Hct 28.9 L (39.6-50.0) % MCH 32.2 H (27.0-32.0) pg Sodium 126 L 126 L (137-145) mmol/L Chloride 94 L (98-107) mmol/L Creatinine 0.65 L (0.66-1.25) mg/dL Glucose 102 H (74-99) mg/dL Calcium 8.1 L (8.4-10.2) mg/dL Assessment and Plan Plan: Stage IIIa squamous cell carcinoma of the right middle lobe. Status post induction chemotherapy, S/P right middle lobectomy with mediastinal lymph node dissection, and the patient is doing well. No evidence of any pneumothorax on the right side chest tube in place and there is tiny right apical pneumothorax. However, the patient is having some intermittent airleak while being on waterseal. As such, the chest tube will be kept in place. Patient is postop day # 8 Tiny right apical pneumothorax with intermittent airleak, currently on waterseal., Condition is unchanged when compared to yesterday and the patient remains on room air oxygen. Chronic and ongoing tobacco dependence. Hypertension. Hyperlipidemia. Urinary retention, a Kern catheter in place and the patient is currently on Flomax Hypochloremic hyponatremia Plan: Clinically stable Right-sided chest tube attached to waterseal and there is only occasional intermittent airleak. Using incentive spirometer intermittent airleak and for that reason we decided to keep the chest tube in place for another 24 to 48 hours. Pain is under adequate control Patient is on room air oxygen Kern catheter has been removed and the patient remains on Flomax Fluid restriction, sodium levels remain stable Will continue to follow. Will consider discharging this patient home with a chest tube and Heimlich valve there is no improvement of air leak. Repeat chest x-ray in AM. Will continue to follow Final pathology from the right middle lobe sample revealed no evidence of any residual malignancy in the lungs and in the mediastinal lymph nodes.
[2025-04-25] MEDS: MELATONIN 3 MG TABLET PO SCH (20:34)
[2025-04-26 09:08] LABS: HCT 32.5 % (39.6-50.0); HGB 11.2 g/dL (13.0-17.0); MCH 31.8 pg (27.0-32.0); MCHC 34.5 g/dL (32.0-37.0); MCV 92.3 fL (80.0-97.0); Mean Platelet Volume 11.2 fL (9.5-12.2); Platelet Count 276 10*3/uL (140-440); RBC 3.52 10*6/uL (4.40-5.60); RDW 12.3 % (11.5-14.5); WBC 6.74 10*3/uL (4.50-10.00)
[2025-04-26 09:28] LABS: African American GFR (CKD) >90 (>60 ml/min/1.73 sqM); Anion Gap 7 mmol/L; Blood Urea Nitrogen 18 mg/dL (9-20); Calcium 8.2 mg/dL (8.4-10.2); Carbon Dioxide 26 mmol/L (22-30); Chloride 94 mmol/L (98-107); Glucose 135 mg/dL (74-99); Non-African American GFR(CKD) >90 (>60 ml/min/1.73 sqM); Potassium 4.5 mmol/L (3.5-5.1); Sodium 127 mmol/L (137-145)
--- NOTE | 2025-04-26 10:08 | XR ---
EXAMINATION TYPE: XR chest 2V DATE OF EXAM: 04/26/2025 6:35 AM COMPARISON: 04/25/2025 CLINICAL INDICATION: Male, 74 years old with history of Post lobectomy, TECHNIQUE: XR chest 2V view(s) obtained. FINDINGS: The heart size is normal. The pulmonary vasculature is normal. Small right pleural effusion is present. Some streaky opacities at the right base. Right-sided chest tube. Small pneumothorax at the apex IMPRESSION: 1. Small right apical pneumothorax post lobectomy. Right-sided chest tube is in position. 2. Atelectasis and small right basilar pleural effusion. [facility], , 04/26/2025 10:06 AM
[2025-04-26] MEDS: TOLVAPTAN 15 MG TABLET PO ONE (11:07)
--- NOTE | 2025-04-26 11:31 | P.PN ---
Subjective Progress Note Date: 04/26/25 Principal diagnosis: Stage IIIa squamous cell lung cancer right middle lobe status post induction chemotherapy with clinical complete response. History of hypertension, hyperlipidemia, BPH, previous tobacco dependence POD #9 robotic assisted thoracoscopic right middle lobectomy with mediastinal lymph node dissection Prolonged airleak greater than 5 days Hyponatremia, common complication after lobectomy for lung cancer Acute urine retention requiring Kern catheter replacement, initiation of Flomax, somewhat expected from known previous history Patient was seen and examined in follow-up this morning April 26, 2025 at his bedside on the third floor cardiac stepdown unit. He is currently sitting up to the bedside chair, is awake, alert, oriented x 3 and is in no acute apparent distress. The patient denies any complaints of shortness of breath and reports his pain is well-controlled on the current pain medication regimen, currently rating his pain 2-3 out of 10 on the pain scale. Oxygen saturations are 97% on room air and he is achieving 1500 mL on his incentive spirometry with encouragement. Right pleural chest tube remains in place to waterseal. Intermittent airleak present with talking only. Draining scant thin serosanguineous drainage. Remote telemetry is showing sinus tachycardia heart rate 100 bpm. Laboratory results reviewed, sodium is 127 today. Patient remains on sodium chloride tablets 1 g p.o. twice daily. Chest x-ray results reviewed. Objective - Vital Signs Vital signs: Vital Signs Temp 98.2 F 04/26/25 03:34 Pulse 98 04/26/25 03:34 Resp 16 04/26/25 03:34 BP 94/66 04/26/25 03:34 Pulse Ox 92 L 04/26/25 03:34 FiO2 21 04/18/25 11:30 Intake & Output 04/25/25 04/26/25 04/26/25 18:59 06:59 18:59 Intake Total 358 250 Output Total 200 610 Balance 158 -360 Weight 81.2 kg Intake: Oral 358 250 Output: Drainage 160 Right Medial Chest 160 Urine 200 450 Straight 450 Stool 0 Other: Voiding Method Indwelling Catheter # Voids 0 # Bowel Movements 0 - Exam CONSTITUTIONAL: Appears comfortable, cooperative, no acute distress RESPIRATORY: Lungs sounds diminished bilaterally. Respirations symmetrical, nonlabored. Currently on room air with oxygen saturation 97%. Able to achieve 1500 mL on incentive spirometry. Strong cough. CARDIOVASCULAR: S1, S2 present. Regular rate and rhythm, sinus tachycardia rhythm on telemetry. Palpable peripheral pulses bilaterally. No edema present. No calf pain or tenderness noted. SCDs present. GASTROINTESTINAL: Abdomen soft, nontender, nondistended. Active bowel sounds present 4 quadrants. Tolerating minimal diet. Bowel movement 6/5. GENITOURINARY: Continues to void. Urine output 450 mL in the last 8 hours. INTEGUMENTARY: Skin is warm and dry with e with no clubbing or cyanosis present. Thoracic incision well approximated and covered with dry intact dressing. NEUROLOGIC: Cranial nerves II through XII intact MUSKULOSKELETAL: Able to move all extremities, strength equal bilaterally, gait normal PSYCHIATRIC: Alert and oriented to person place and time, appropriate affect, intact judgment and insight INVASIVE LINES AND TUBES: Right pleural chest tubes present to waterseal, intermittent airleak present with talking, minimal serosanguineous drainage in t he last 24 hours - Allied health notes Allied health notes reviewed: nursing - Labs CBC & Chem 7: 04/26/25 07:30 04/26/25 07:30 Labs: Abnormal Lab Results - Last 24 Hours (Table) 04/25/25 04/25/25 Range/Units 06:11 06:11 RBC 3.20 L (4.40-5.60) 10*6/uL Hgb 10.3 L (13.0-17.0) g/dL Hct 28.9 L (39.6-50.0) % MCH 32.2 H (27.0-32.0) pg Sodium 126 L (137-145) mmol/L Chloride 94 L (98-107) mmol/L Creatinine 0.65 L (0.66-1.25) mg/dL Glucose 102 H (74-99) mg/dL Calcium 8.1 L (8.4-10.2) mg/dL - Imaging and Cardiology Chest x-ray: report reviewed, image reviewed Assessment and Plan Assessment: Stage IIIa squamous cell lung cancer right middle lobe status post induction chemotherapy with clinical complete response, status post right middle lobectom y, final pathology consistent with complete resolution of cancer from neoadjuvant therapy Prolonged air leak >5 days Hyponatremia Acute urine retention History of hypertension Hyperlipidemia BPH Previous tobacco dependence Plan: Continue right pleural chest tube, Heimlich valve placed by Dr. Garcia. Continue Flomax, urology following. Fluid restrictions 1200 mL/24 hours, sodium tablets per nephrology recommendations, would like sodium level 128 or greater prior to discharge. Sodium level 127 today. Oral nutrition encouraged, patient encouraged to have brought from home, supplements added. Continue to maximize medical therapy with home medications. Increase activity, ambulate as tolerated. Encourage incentive spirometry use, bronchodilators per pulmonology. Pain control with current medication regimen. Will monitor daily labs and chest x-rays. Pathology results have been reviewed with the patient by Dr. Garcia. Discharge planning is in place, anticipate discharge home within the next 24 to 48 hours. More recommendations to follow based on patient's clinical course. Time with Patient: Greater than 30
--- NOTE | 2025-04-26 12:01 | P.PN ---
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 He completed induction chemotherapy and his last chemotherapy was March 04, 2025. A repeat PET scan demonstrated complete response with no uptake in the sub carinal region and immediate minimal uptake in the lung with complete resolution of the previously observed lung mass. The patient still elected to undergo a right middle lobectomy to complete the staging and minimize the risk of recurrence. He was brought in electively today and did indeed undergo a robotic assisted right middle lobectomy with mediastinal lymph node dissection with Dr. Garcia. He is seen in consultation on the selective care unit. He is currently resting fairly comfortably in bed. Awake and alert in no acute distress. Right sided chest tube remains in place to Pleur-evac and low continuous wall suction at -20 cm of water. There is a positive bubbling leak present. Chest x-ray reveals right thoracotomy tube in place with no evidence of significant pneumothorax. He is maintaining O2 saturations up to 100% on 2 L/min per nasal cannula. He has been afebrile. Hemodynamically stable. Progress note dated April 18, 2025. 74-year-old male who was seen yesterday in consultation. Please see my note above. He is postoperative day #1, status post right middle lobectomy. The patient seems to be doing relatively well. He seen today in room 354. He is on room air. No IV fluids. He does have a small leak from the right sided chest tube. Current laboratory data includes a white count of 1.9, hemoglobin 11.2, hematocrit 32.7, and platelet count 194,000. Sodium 130, potassium 4.4, chloride 96, CO2 30, BUN 25, creatinine 0.81. Glucose is 119. Calcium is 8.3. Chest x-ray shows a right-sided chest tube, no pneumothorax. Progress note dated April 19, 2025. 74-year-old male seen today in room 354. He is sitting in the chair next to the hospital bed. He is resting comfortably. He is awake and alert. No respiratory distress. Right chest tube remains in. There is a small leak. He is on room air. He is not receiving any IV fluids. Current laboratory data includes a white count 7.1, hemoglobin 1.6, hematocrit 34.9, and a normal platelet count. Sodium 135, potassium 3.3, chlorides 99, CO2 27, BUN 25, creatinine 0.71. Glucose 115. Calcium 8.5. Chest x-ray shows a stable right- sided chest tube, without obvious pneumothorax. Progress note dated April 20, 2025. 74-year-old male seen today in room 354. The patient is sitting in the chair next to the hospital bed. He is on room air. He is not receiving any IV fluids. His chest tube remains in place. He continues with a leak. Clinically, he is doing well. He denies any chest pain or chest discomfort. He is not having any shortness of breath. Current labs include a white count 7.3, hemoglobin 9.3, hematocrit 33.1, and a platelet count of 198,000. Sodium 134, potassium 4.3, chlorides 100, CO2 28, BUN 31, creatinine 1.13. Glucose is 100. Calcium is 9.1. Chest x-ray is largely unchanged. There are some right basilar atelectasis. The right chest tube remains in place. No pneumothorax is seen 04/21/2025, the patient is resting comfortably in bed. No significant respirat ory distress. The patient is doing well post his right middle lobectomy mediastinal lymph node dissection the patient is currently postop day #4. Using incentive spirometer. Pulling more than 1500 on his I-S. Right-sided chest tube still in place and is/to waterseal. Repeat chest x-ray from this morning shows no clear evidence of pneumothorax. Output from the chest tube is minimal. On a separate note, the patient has developed urinary retention and the patient will have a Kern catheter inserted. The bedside because of 4.4 with a hemoglobin of 10 and platelet count of 179. BUN 26 and a creatinine of 0.7. Sodium is at 131 and a potassium level is at 3.3. No other significant events overnight. The patient is currently on room air oxygen. 62,025, the patient is being seen for a follow-up. The patient is sitting up in a chair and the patient is calm and comfortable. Right-sided chest tube remains in place. There are some intermittent airleak as noted in the Pleur-evac. No significant respiratory distress. No significant chest pain. Hemodynamically stable. Repeat chest x-ray from today shows no evidence of any pneumothorax. However, based on the present of some limited air leak, we decided to keep the chest tube in place for now. Case was discussed with cardiothoracic surgery. Meanwhile, the patient has a Kern catheter in place. The white cell count is 5.2 with a hemoglobin 10.3 and a platelet count of 2 1. BUN 21 with a creatinine of 0.7. Sodium levels at 129 and a potassium level is at 4.5. He is currently on Flomax 0.4 mg once a day. Rest of the home medications will be resumed. He is postop day #5. On on 04/23/2025, the patient's chest x-ray shows a small right apical pneumothorax and the patient continues to have intermittent airleak as noted on in his chest tube Pleur-evac. He is using incentive spirometer. Denies having any significant chest pain or shortness of breath. He remains on room air oxygen. He remains on DuoNeb and he remains on a combination performance of Pulmicort nebulized treatments twice a day. Kern catheter remains in place and the patient is currently on Flomax. The white cell count is at 5.1 with a hemoglobin of 10 and platelet count of 204. Sodium level is 127, and the patient is receiving fluid restriction and the BUN is 14 with a creatinine of 0.6. No other significant events overnight. Patient is postop day #6 following a right middle lobe lobectomy. 04/24/2025, the patient is being seen for a follow-up. No new complaints. The patient is calm and comfortable. He continues to have intermittent airleak to the right side of chest tube which is attached to waterseal. The patient has no chest pain. The chest x-ray from today shows no evidence of any pneumothorax. However, there is some ongoing electrolyte disturbance as the patient's sodium level is currently 124 with a BUN of 15 and a creatinine of 0.65. Chloride level is at 88. The white cell count is 6 with a hemoglobin 10.7 and a platelet count of 224. The patient was seen by nephrology regarding hyponatremia. The patient was started on sodium tablets. Patient is being considered for Samsca if no improvement in the sodium level. Otherwise, no new complaints for now.On a separate note, the patient's right middle lobe sample that was obtained surgically showed no evidence of malignancy. Mediastinal lymph nodes were also negative. On 04/25/2025, the patient is being seen for a follow-up with the patient remains on room air oxygen. He has no specific complaints. Repeat chest x-ray from today showing a small right apical pneumothorax. On today's evaluation, the patient is right-sided chest tube is in place and there is some ongoing intermittent mild amount of airleak with coughing. Otherwise, the output from the chest tube is minimal. The patient remains in normal sinus rhythm. The patient's Kern catheter has been removed and the patient remains on Flomax. He remains on fluid restriction and sodium levels currently at 126 and a potassium is at 4. BUN is 16 with a creatinine 0.5. The white cell count is 5.8 with a hemoglobin of 10.3. No other complaints otherwise for now. On 04/26/2025, the patient is being seen for a follow-up. Chest x-ray shows no evidence of pneumothorax. Minimal intermittent leak in the chest tube is noted. Sodium is at 127, BUN is 18 with a creatinine of 0.6. The patient remains on room air oxygen. No specific complaints. Objective - Vital Signs Vital signs: Vital Signs Temp 98.1 F 04/26/25 07:55 Pulse 99 04/26/25 07:55 Resp 18 04/26/25 07:55 BP 85/58 04/26/25 07:55 Pulse Ox 96 04/26/25 07:55 FiO2 21 04/18/25 11:30 Intake & Output 04/25/25 04/26/25 04/26/25 18:59 06:59 18:59 Intake Total 358 250 Output Total 200 610 490 Balance 158 -360 -490 Weight 81.2 kg Intake: Oral 358 250 Output: Chest Tube Drainage 40 Chest Tube Right Lateral 40 Chest Drainage 160 Right Medial Chest 160 Urine 200 450 450 Straight 450 Stool 0 Other: Voiding Method Indwelling Catheter # Voids 0 # Bowel Movements 0 - Exam CONSTITUTIONAL: Appears comfortable, cooperative, no acute distress RESPIRATORY: Lungs sounds diminished bilaterally. Respirations even, nonlabored. Currently on room air with oxygen saturation 95%. Able to achieve 2500 mL on incentive spirometry. Strong cough. CARDIOVASCULAR: S1, S2 present. Regular rate and rhythm, sinus rhythm on telemetry. Palpable peripheral pulses bilaterally. No edema present. No calf pain or tenderness noted. SCDs present. GASTROINTESTINAL: Abdomen soft, nontender, nondistended. Active bowel sounds present 4 quadrants. Tolerating minimal diet. Positive bowel movement 6/5 although not documented in [facility] GENITOURINARY: Kern present draining clear, yellow urine, output 650 mL in the last 24 hours INTEGUMENTARY: Skin is warm and dry with evidence of good perfusion. Thoracic incision well approximated and covered with dry intact dressing. NEUROLOGIC: Cranial nerves II through XII intact MUSKULOSKELETAL: Able to move all extremities, strength equal bilaterally, gait normal PSYCHIATRIC: Alert and oriented to person place and time, appropriate affect, intact judgment and insight INVASIVE LINES AND TUBES: Right pleural chest tubes present to waterseal, int ermittent airleak present with coughing, minimal serosanguineous drainage in the last 24 hours - Labs CBC & Chem 7: 04/26/25 07:30 04/26/25 07:30 Assessment and Plan Plan: Stage IIIa squamous cell carcinoma of the right middle lobe. Status post induction chemotherapy, S/P right middle lobectomy with mediastinal lymph node dissection, and the patient is doing well. Chest x-ray from today was done and there is no evidence of pneumothorax. However, the patient is having some minimal intermittent airleak while being on waterseal. As such, the chest tube will be kept in place. Patient is postop day # 9 Resolution of previous described right apical pneumothorax with intermittent airleak, currently on waterseal., Condition is unchanged when compared to yesterday and the patient remains on room air oxygen. Chronic and ongoing tobacco dependence. Hypertension. Hyperlipidemia. Urinary retention, a Kern catheter in place and the patient is currently on Flomax Hypochloremic hyponatremia, improving sodium levels at 127 Plan: Clinically stable Right-sided chest will be attached to a Heimlich valve Using incentive spirometer intermittent airleak and for that reason we decided to keep the chest tube in place for another 24 to 48 hours. Pain is under adequate control Patient is on room air oxygen Kern catheter has been removed and the patient remains on Flomax Fluid restriction, sodium levels remain stable Will follow Final pathology from the right middle lobe sample revealed no evidence of any residual malignancy in the lungs and in the mediastinal lymph nodes. Time with Patient: Greater than 30
--- NOTE | 2025-04-26 12:17 | P.PN ---
Subjective Patient is seen for follow-up for hyponatremia. Maintained on sodium chloride tabs and received Samsca yesterday. Sodium is 127 today No significant complaints. Patient wants to go home Objective - Vital Signs Vital signs: Vital Signs Temp 97.9 F 04/26/25 11:10 Pulse 103 H 04/26/25 11:10 Resp 18 04/26/25 11:10 BP 115/79 04/26/25 11:10 Pulse Ox 95 04/26/25 11:10 FiO2 21 04/18/25 11:30 Intake & Output 04/25/25 04/26/25 04/26/25 18:59 06:59 18:59 Intake Total 358 250 Output Total 200 610 490 Balance 158 -360 -490 Weight 81.2 kg Intake: Oral 358 250 Output: Chest Tube Drainage 40 Chest Tube Right Lateral 40 Chest Drainage 160 Right Medial Chest 160 Urine 200 450 450 Straight 450 Stool 0 Other: Voiding Method Indwelling Catheter # Voids 0 # Bowel Movements 0 - Exam Patient is awake, comfortable, no acute distress Examination of the heart S1 and S2 Examination of the lungs bilateral breath sounds are heard Abdomen is soft nontender Examination lower extremities shows no significant edema [employer] exam grossly intact - Labs CBC & Chem 7: 04/26/25 07:30 04/26/25 07:30 Labs: Abnormal Lab Results - Last 24 Hours (Table) 04/26/25 04/26/25 Range/Units 07:30 07:30 RBC 3.52 L (4.40-5.60) 10*6/uL Hgb 11.2 L (13.0-17.0) g/dL Hct 32.5 L (39.6-50.0) % Sodium 127 L (137-145) mmol/L Chloride 94 L (98-107) mmol/L Creatinine 0.63 L (0.66-1.25) mg/dL Glucose 135 H (74-99) mg/dL Calcium 8.2 L (8.4-10.2) mg/dL Assessment and Plan Assessment: 1. Hyponatremia, euvolemic. Sodium improved with sodium chloride tabs. Also received Samsca yesterday. Sodium is 127 today. Urine osmolality 659 with urine sodium of 120 suggesting underlying SIADH. Maintained on fluid restriction. 2. Stage IIIa squamous cell carcinoma right middle lobe status post middle lobectomy 3. Hypertension maintained on lisinopril 4. Urine retention with history of BPH currently with indwelling Kern catheter which was reinserted. Patient is maintained on Flomax. Plan: Continue with sodium chloride tabs Repeat Samsca again today Continue with fluid restriction Encouraged increased oral intake particularly protein.
[2025-04-26 15:17] LABS: African American GFR (CKD) >90 (>60 ml/min/1.73 sqM); Anion Gap 5 mmol/L; Blood Urea Nitrogen 21 mg/dL (9-20); Calcium 8.4 mg/dL (8.4-10.2); Carbon Dioxide 27 mmol/L (22-30); Chloride 96 mmol/L (98-107); Glucose 134 mg/dL (74-99); Non-African American GFR(CKD) >90 (>60 ml/min/1.73 sqM); Potassium 4.8 mmol/L (3.5-5.1); Sodium 128 mmol/L (137-145)
[2025-04-27 08:01] LABS: HCT 32.8 % (39.6-50.0); HGB 11.2 g/dL (13.0-17.0); MCH 31.5 pg (27.0-32.0); MCHC 34.1 g/dL (32.0-37.0); MCV 92.4 fL (80.0-97.0); Mean Platelet Volume 10.6 fL (9.5-12.2); Platelet Count 311 10*3/uL (140-440); RBC 3.55 10*6/uL (4.40-5.60); RDW 11.9 % (11.5-14.5); WBC 7.04 10*3/uL (4.50-10.00)
[2025-04-27 08:22] LABS: African American GFR (CKD) >90 (>60 ml/min/1.73 sqM); Anion Gap 7 mmol/L; Blood Urea Nitrogen 22 mg/dL (9-20); Calcium 8.5 mg/dL (8.4-10.2); Carbon Dioxide 26 mmol/L (22-30); Chloride 95 mmol/L (98-107); Glucose 126 mg/dL (74-99); Non-African American GFR(CKD) >90 (>60 ml/min/1.73 sqM); Sodium 128 mmol/L (137-145)
--- NOTE | 2025-04-27 10:13 | XR ---
EXAMINATION TYPE: XR chest 2V DATE OF EXAM: 04/27/2025 6:56 AM COMPARISON: 04/26/2025. CLINICAL INDICATION: Male, 74 years old with history of Status post right middle lobectomy, TECHNIQUE: XR chest 2V view(s) obtained. FINDINGS: The heart size is normal. The pulmonary vasculature is normal. Mild infiltrates of the right base. Small right pleural effusion is present. Right-sided chest tube r emains present There may be a tiny residual 8 focal pneumothorax on the right. No increasing size pneumothorax is ev ident. IMPRESSION: 1. Right lower lobe infiltrate and small right pleural effusion. 2. Suggestion of minimal right apical residual pneumothorax. Right-sided chest tube remains in positi on. [facility], , 04/27/2025 10:11 AM
[2025-04-27] MEDS ORDERED: TOLVAPTAN 30 MG TABLET PO ONE (11:00)
[2025-04-27 11:15] LABS: Appearance,Urine Clear (Clear); Bacteria,Urine Rare /hpf; Bilirubin,Urine Negative (Negative); Blood,Urine Negative (Negative); Color,Urine Yellow; Glucose,Urine (UA) Negative (Negative); Ketones,Urine 1+ (Negative); Leukocyte Esterase,Urine Moderate (Negative); Mucus,Urine Rare /hpf; Nitrite,Urine Negative (Negative); PH, Urine 5.5 (5.0-8.0); Protein,Urine 1+ (Negative); RBC,Urine 5 /hpf (0-5); Specific Gravity,Urine 1.023 (1.001-1.035); Urobilinogen,Urine <2.0 mg/dL (<2.0); WBC,Urine 35 /hpf (0-5)
[2025-04-27] MEDS: FUROSEMIDE 10 MG/ML 2 ML VIAL IV ONE (11:44)
[2025-04-27] MEDS: TOLVAPTAN 15 MG TABLET PO ONE (11:45)
--- NOTE | 2025-04-27 12:38 | P.PN ---
Subjective Patient is seen for follow-up for hyponatremia. Maintained on sodium chloride tabs and received Samsca, 3 doses so far Sodium is 128 today No significant complaints. Patient wants to go home Objective - Vital Signs Vital signs: Vital Signs Temp 98.3 F 04/27/25 11:43 Pulse 106 H 04/27/25 11:43 Resp 18 04/27/25 11:43 BP 108/74 04/27/25 11:43 Pulse Ox 94 L 04/27/25 11:43 FiO2 21 04/18/25 11:30 Intake & Output 04/26/25 04/27/25 04/27/25 18:59 06:59 18:59 Intake Total 592 240 Output Total 1310 1760 225 Balance -718 -1760 15 Weight 76.7 kg Intake: Oral 592 240 Output: Chest Tube Drainage 40 Chest Tube Right Lateral 40 Chest Drainage 10 Right Medial Chest 10 Urine 1270 1750 225 Straight 820 Uretheral (Kern) 400 225 Other: Voiding Method Toilet Indwelling Catheter Indwelling Catheter - Exam Patient is awake, comfortable, no acute distress Examination of the heart S1 and S2 Examination of the lungs bilateral breath sounds are heard Abdomen is soft nontender Examination lower extremities shows no significant edema [employer] exam grossly intact - Labs CBC & Chem 7: 04/27/25 07:27 04/27/25 07:27 Labs: Abnormal Lab Results - Last 24 Hours (Table) 04/26/25 04/27/25 04/27/25 Range/Units 14:48 07:27 07:27 RBC 3.55 L (4.40-5.60) 10*6/uL Hgb 11.2 L (13.0-17.0) g/dL Hct 32.8 L (39.6-50.0) % Sodium 128 L 128 L (137-145) mmol/L Chloride 96 L 95 L (98-107) mmol/L BUN 21 H 22 H (9-20) mg/dL Creatinine 0.61 L 0.62 L (0.66-1.25) mg/dL Glucose 134 H 126 H (74-99) mg/dL Urine Protein (Negative) Urine Ketones (Negative) Ur Leukocyte Esterase (Negative) Urine WBC (0-5) /hpf Urine Bacteria (None) /hpf Urine Mucus (None) /hpf 06/08/25 Range/Units 08:45 RBC (4.40-5.60) 10*6/uL Hgb (13.0-17.0) g/dL Hct (39.6-50.0) % Sodium (137-145) mmol/L Chloride (98-107) mmol/L BUN (9-20) mg/dL Creatinine (0.66-1.25) mg/dL Glucose (74-99) mg/dL Urine Protein 1+ H (Negative) Urine Ketones 1+ H (Negative) Ur Leukocyte Esterase Moderate H (Negative) Urine WBC 35 H (0-5) /hpf Urine Bacteria Rare H (None) /hpf Urine Mucus Rare H (None) /hpf Assessment and Plan Assessment: 1. Hyponatremia, euvolemic. Sodium improved with sodium chloride tabs. Status post Samsca x2, sodium is 128 today. Urine osmolality 659 with urine sodium of 120 suggesting underlying SIADH. Maintained on fluid restriction. 2. Stage IIIa squamous cell carcinoma right middle lobe status post middle lobectomy 3. Hypertension maintained on lisinopril 4. Urine retention with history of BPH currently with indwelling Kern catheter which was reinserted. Patient is maintained on Flomax. Plan: Continue with sodium chloride tabs Repeat Samsca again today, higher dose Continue with fluid restriction Encouraged increased oral intake particularly protein.
--- NOTE | 2025-04-27 12:40 | P.PN ---
Subjective Progress Note Date: 04/27/25 Kern catheter was removed yesterday, patient was unable to void his postvoid residuals 1 L, subsequently Kern catheter was placed last night. He is on Flomax. Objective - Vital Signs Vital signs: Vital Signs Temp 98.3 F 04/27/25 11:43 Pulse 106 H 04/27/25 11:43 Resp 18 04/27/25 11:43 BP 108/74 04/27/25 11:43 Pulse Ox 94 L 04/27/25 11:43 FiO2 21 04/18/25 11:30 Intake & Output 04/26/25 04/27/25 04/27/25 18:59 06:59 18:59 Intake Total 592 240 Output Total 1310 1760 225 Balance -718 -1760 15 Weight 76.7 kg Intake: Oral 592 240 Output: Chest Tube Drainage 40 Chest Tube Right Lateral 40 Chest Drainage 10 Right Medial Chest 10 Urine 1270 1750 225 Straight 820 Uretheral (Kern) 400 225 Other: Voiding Method Toilet Indwelling Catheter Indwelling Catheter - Constitutional General appearance: Present: no acute distress - Gastrointestinal General gastrointestinal: Present: soft. Absent: distended, tenderness - Labs CBC & Chem 7: 04/27/25 07:27 04/27/25 07:27 Labs: Abnormal Lab Results - Last 24 Hours (Table) 04/26/25 04/27/25 04/27/25 Range/Units 14:48 07:27 07:27 RBC 3.55 L (4.40-5.60) 10*6/uL Hgb 11.2 L (13.0-17.0) g/dL Hct 32.8 L (39.6-50.0) % Sodium 128 L 128 L (137-145) mmol/L Chloride 96 L 95 L (98-107) mmol/L BUN 21 H 22 H (9-20) mg/dL Creatinine 0.61 L 0.62 L (0.66-1.25) mg/dL Glucose 134 H 126 H (74-99) mg/dL Urine Protein (Negative) Urine Ketones (Negative) Ur Leukocyte Esterase (Negative) Urine WBC (0-5) /hpf Urine Bacteria (None) /hpf Urine Mucus (None) /hpf 04/27/25 Range/Units 08:45 RBC (4.40-5.60) 10*6/uL Hgb (13.0-17.0) g/dL Hct (39.6-50.0) % Sodium (137-145) mmol/L Chloride (98-107) mmol/L BUN (9-20) mg/dL Creatinine (0.66-1.25) mg/dL Glucose (74-99) mg/dL Urine Protein 1+ H (Negative) Urine Ketones 1+ H (Negative) Ur Leukocyte Esterase Moderate H (Negative) Urine WBC 35 H (0-5) /hpf Urine Bacteria Rare H (None) /hpf Urine Mucus Rare H (None) /hpf Assessment and Plan Assessment: 74-year-old male with postop urinary retention, has BPH at baseline with obstructive urinary symptoms. Also evidence of phimosis on exam. Has failed to trial of voids, 1. BPH/Urinary retention - Continue Flomax - Can be discharged with a Kern catheter, will follow-up in 2 weeks for possible cystoscopy 2. Phimosis continue betamethasone cream
--- NOTE | 2025-04-27 13:14 | P.PN ---
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 History of hypertension, hyperlipidemia, BPH, previous tobacco dependence POD #10 robotic assisted thoracoscopic right middle lobectomy with mediastinal lymph node dissection Prolonged airleak greater than 5 days Hyponatremia, common complication after lobectomy for lung cancer Acute urine retention requiring Kern catheter replacement, initiation of Flomax, somewhat expected from known previous history Patient was seen and examined in follow-up this morning April 27, 2025 at his bedside on the third floor cardiac stepdown unit. He is currently sitting up to the bedside chair, is awake, alert, oriented x 3 and is in no acute apparent distress. He does appear to be having some episodes of confusion this a.m. The patient denies any complaints of shortness of breath and reports his pain is well-controlled on the current pain medication regimen, currently rating his pain 2 out of 10 on the pain scale. Tmax temperature in the last 24 hours was 100.9 F. Oxygen saturations are 94% on room air and he is achieving 1500 mL on his incentive spirometry with encouragement. Right pleural chest tube remains in place is connected to a Heimlich valve device. No airleak noted. Draining scant thin serosanguineous drainage. Remote telemetry is showing sinus tachycardia heart rate 103 bpm. Laboratory results reviewed, sodium is 128 today, and the patient was given 1 dose of Samsca 15 mg yesterday by nephrology. Chest x-ray results reviewed. The patient had some urine retention yesterday requiring 2 straight catheterizations and subsequently a Kern catheter had to be placed. Urine output 1.3 L in the last 8 hours. Objective - Vital Signs Vital signs: Vital Signs Temp 98.3 F 04/27/25 08:00 Pulse 104 H 04/27/25 08:00 Resp 18 04/27/25 08:00 BP 102/70 04/27/25 08:00 Pulse Ox 97 04/27/25 08:00 FiO2 21 04/18/25 11:30 Intake & Output 04/26/25 04/27/25 04/27/25 18:59 06:59 18:59 Intake Total 592 Output Total 1310 1760 Balance -718 -1760 Weight 76.7 kg Intake: Oral 592 Output: Chest Tube Drainage 40 Chest Tube Right Lateral 40 Chest Drainage 10 Right Medial Chest 10 Urine 1270 1750 Straight 820 Uretheral (Kern) 400 Other: Voiding Method Toilet Indwelling Catheter - Exam CONSTITUTIONAL: Appears comfortable, cooperative, no acute distress RESPIRATORY: Lungs sounds diminished bilaterally. Respirations symmetrical, nonlabored. Currently on room air with oxygen saturation 94%. Able to achieve 1500 mL on incentive spirometry. Strong cough. CARDIOVASCULAR: S1, S2 present. Regular rate and rhythm, sinus tachycardia rhythm on telemetry. Palpable peripheral pulses bilaterally. No edema present. No calf pain or tenderness noted. SCDs present. GASTROINTESTINAL: Abdomen soft, nontender, nondistended. Active bowel sounds present 4 quadrants. Tolerating minimal diet. Bowel movement 6/5. GENITOURINARY: Continues to void. Urine output 450 mL in the last 8 hours. INTEGUMENTARY: Skin is warm and dry with e with no clubbing or cyanosis present. Thoracic incision well approximated and covered with dry intact dressing. NEUROLOGIC: Cranial nerves II through XII intact MUSKULOSKELETAL: Able to move all extremities, strength equal bilaterally, gait normal PSYCHIATRIC: Alert and oriented to person place and time, appropriate affect, intact judgment and insight INVASIVE LINES AND TUBES: Right pleural chest tubes present to waterseal, intermittent airleak present with talking, minimal serosanguineous drainage in the last 24 hours - Allied health notes Allied health notes reviewed: nursing - Labs CBC & Chem 7: 04/27/25 07:27 04/27/25 07:27 Labs: Abnormal Lab Results - Last 24 Hours (Table) 04/26/25 04/26/25 04/27/25 Range/Units 07:30 14:48 07:27 RBC 3.55 L (4.40-5.60) 10*6/uL Hgb 11.2 L (13.0-17.0) g/dL Hct 32.8 L (39.6-50.0) % Sodium 127 L 128 L (137-145) mmol/L Chloride 94 L 96 L (98-107) mmol/L BUN 21 H (9-20) mg/dL Creatinine 0.63 L 0.61 L (0.66-1.25) mg/dL Glucose 135 H 134 H (74-99) mg/dL Calcium 8.2 L (8.4-10.2) mg/dL 04/27/25 Range/Units 07:27 RBC (4.40-5.60) 10*6/uL Hgb (13.0-17.0) g/dL Hct (39.6-50.0) % Sodium 128 L (137-145) mmol/L Chloride 95 L (98-107) mmol/L BUN 22 H (9-20) mg/dL Creatinine 0.62 L (0.66-1.25) mg/dL Glucose 126 H (74-99) mg/dL Calcium (8.4-10.2) mg/dL - Imaging and Cardiology Chest x-ray: image reviewed Assessment and Plan Assessment: 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 Continue Flomax, urology following. Fluid restrictions 1200 mL/24 hours, sodium tablets per nephrology recommendations, would like sodium level 128 or greater prior to discharge. Sodium level 128 today. Samsca 15 mg p.o. x 1 was given by nephrology yesterday April 26, 2025. Send urine for urinalysis. Oral nutrition encouraged, patient encouraged to have brought from home, supplements added. Continue to maximize medical therapy with home medications. Increase activity, ambulate as tolerated. Encourage incentive spirometry use, bronchodilators per pulmonology. Pain control with current medication regimen. Will monitor daily labs and chest x-rays. Pathology results have been reviewed with the patient by Dr. Garcia. Discharge planning is in place, anticipate discharge home within the next 24 to 48 hours. More recommendations to follow based on patient's clinical course. Time with Patient: Greater than 30
--- NOTE | 2025-04-27 13:54 | P.PN ---
Subjective Progress Note Date: 04/27/25 This is a very pleasant 74-year-old male patient who was diagnosed with 3A squamous cell carcinoma of the right middle lobe back in September 2024. He completed induction chemotherapy and his last chemotherapy was March 04, 2025. A repeat PET scan demonstrated complete response with no uptake in the sub carinal region and immediate minimal uptake in the lung with complete resolution of the previously observed lung mass. The patient still elected to undergo a right middle lobectomy to complete the staging and minimize the risk of recurrence. He was brought in electively today and did indeed undergo a robotic assisted right middle lobectomy with mediastinal lymph node dissection with Dr. Garcia. He is seen in consultation on the selective care unit. He is currently resting fairly comfortably in bed. Awake and alert in no acute distress. Right sided chest tube remains in place to Pleur-evac and low continuous wall suction at -20 cm of water. There is a positive bubbling leak present. Chest x-ray reveals right thoracotomy tube in place with no evidence of significant pneumothorax. He is maintaining O2 saturations up to 100% on 2 L/min per nasal cannula. He has been afebrile. Hemodynamically stable. Progress note dated April 18, 2025. 74-year-old male who was seen yesterday in consultation. Please see my note above. He is postoperative day #1, status post right middle lobectomy. The patient seems to be doing relatively well. He seen today in room 354. He is on room air. No IV fluids. He does have a small leak from the right sided chest tube. Current laboratory data includes a white count of 1.9, hemoglobin 11.2, hematocrit 32.7, and platelet count 194,000. Sodium 130, potassium 4.4, chloride 96, CO2 30, BUN 25, creatinine 0.81. Glucose is 119. Calcium is 8.3. Chest x-ray shows a right-sided chest tube, no pneumothorax. Progress note dated April 19, 2025. 74-year-old male seen today in room 354. He is sitting in the chair next to the hospital bed. He is resting comfortably. He is awake and alert. No respiratory distress. Right chest tube remains in. There is a small leak. He is on room air. He is not receiving any IV fluids. Current laboratory data includes a white count 7.1, hemoglobin 1.6, hematocrit 34.9, and a normal platelet count. Sodium 135, potassium 3.3, chlorides 99, CO2 27, BUN 25, creatinine 0.71. Glucose 115. Calcium 8.5. Chest x-ray shows a stable right- sided chest tube, without obvious pneumothorax. Progress note dated April 20, 2025. 74-year-old male seen today in room 354. The patient is sitting in the chair next to the hospital bed. He is on room air. He is not receiving any IV fluids. His chest tube remains in place. He continues with a leak. Clinically, he is doing well. He denies any chest pain or chest discomfort. He is not having any shortness of breath. Current labs include a white count 7.3, hemoglobin 9.3, hematocrit 33.1, and a platelet count of 198,000. Sodium 134, potassium 4.3, chlorides 100, CO2 28, BUN 31, creatinine 1.13. Glucose is 100. Calcium is 9.1. Chest x-ray is largely unchanged. There are some right basilar atelectasis. The right chest tube remains in place. No pneumothorax is seen 04/21/2025, the patient is resting comfortably in bed. No significant respirat ory distress. The patient is doing well post his right middle lobectomy mediastinal lymph node dissection the patient is currently postop day #4. Using incentive spirometer. Pulling more than 1500 on his I-S. Right-sided chest tube still in place and is/to waterseal. Repeat chest x-ray from this morning shows no clear evidence of pneumothorax. Output from the chest tube is minimal. On a separate note, the patient has developed urinary retention and the patient will have a Kern catheter inserted. The bedside because of 4.4 with a hemoglobin of 10 and platelet count of 179. BUN 26 and a creatinine of 0.7. Sodium is at 131 and a potassium level is at 3.3. No other significant events overnight. The patient is currently on room air oxygen. 62,025, the patient is being seen for a follow-up. The patient is sitting up in a chair and the patient is calm and comfortable. Right-sided chest tube remains in place. There are some intermittent airleak as noted in the Pleur-evac. No significant respiratory distress. No significant chest pain. Hemodynamically stable. Repeat chest x-ray from today shows no evidence of any pneumothorax. However, based on the present of some limited air leak, we decided to keep the chest tube in place for now. Case was discussed with cardiothoracic surgery. Meanwhile, the patient has a Kern catheter in place. The white cell count is 5.2 with a hemoglobin 10.3 and a platelet count of 2 1. BUN 21 with a creatinine of 0.7. Sodium levels at 129 and a potassium level is at 4.5. He is currently on Flomax 0.4 mg once a day. Rest of the home medications will be resumed. He is postop day #5. On on 04/23/2025, the patient's chest x-ray shows a small right apical pneumothorax and the patient continues to have intermittent airleak as noted on in his chest tube Pleur-evac. He is using incentive spirometer. Denies having any significant chest pain or shortness of breath. He remains on room air oxygen. He remains on DuoNeb and he remains on a combination performance of Pulmicort nebulized treatments twice a day. Kern catheter remains in place and the patient is currently on Flomax. The white cell count is at 5.1 with a hemoglobin of 10 and platelet count of 204. Sodium level is 127, and the patient is receiving fluid restriction and the BUN is 14 with a creatinine of 0.6. No other significant events overnight. Patient is postop day #6 following a right middle lobe lobectomy. 04/24/2025, the patient is being seen for a follow-up. No new complaints. The patient is calm and comfortable. He continues to have intermittent airleak to the right side of chest tube which is attached to waterseal. The patient has no chest pain. The chest x-ray from today shows no evidence of any pneumothorax. However, there is some ongoing electrolyte disturbance as the patient's sodium level is currently 124 with a BUN of 15 and a creatinine of 0.65. Chloride level is at 88. The white cell count is 6 with a hemoglobin 10.7 and a platelet count of 224. The patient was seen by nephrology regarding hyponatremia. The patient was started on sodium tablets. Patient is being considered for Samsca if no improvement in the sodium level. Otherwise, no new complaints for now.On a separate note, the patient's right middle lobe sample that was obtained surgically showed no evidence of malignancy. Mediastinal lymph nodes were also negative. On 04/25/2025, the patient is being seen for a follow-up with the patient remains on room air oxygen. He has no specific complaints. Repeat chest x-ray from today showing a small right apical pneumothorax. On today's evaluation, the patient is right-sided chest tube is in place and there is some ongoing intermittent mild amount of airleak with coughing. Otherwise, the output from the chest tube is minimal. The patient remains in normal sinus rhythm. The patient's Kern catheter has been removed and the patient remains on Flomax. He remains on fluid restriction and sodium levels currently at 126 and a potassium is at 4. BUN is 16 with a creatinine 0.5. The white cell count is 5.8 with a hemoglobin of 10.3. No other complaints otherwise for now. On 04/26/2025, the patient is being seen for a follow-up. Chest x-ray shows no evidence of pneumothorax. Minimal intermittent leak in the chest tube is noted. Sodium is at 127, BUN is 18 with a creatinine of 0.6. The patient remains on room air oxygen. No specific complaints. 04/27/2025, the patient is being seen for a follow-up. The patient has doing well. No specific complaints. He continues to have urinary retention and a Kern catheter was reinserted. The Heimlich valve was attached to the right- sided chest tube. The patient has no significant respiratory distress. Chest x-ray shows a very tiny right apical pneumothorax. The sodium level is at 128, potassium is at 4, chloride is 95 with a bicarb of 26, BUN is 22 and the creatinine is at 0.6. The white cell count is 7.04 with a hemoglobin of 11.2 a nd a platelet count of 311. No other significant events overnight. Bread Icer on the case. CT surgery is also on the case. Objective - Vital Signs Vital signs: Vital Signs Temp 98.3 F 04/27/25 08:00 Pulse 104 H 04/27/25 08:00 Resp 18 04/27/25 08:00 BP 102/70 04/27/25 08:00 Pulse Ox 97 04/27/25 08:00 FiO2 21 04/18/25 11:30 Intake & Output 04/26/25 04/27/25 04/27/25 18:59 06:59 18:59 Intake Total 592 Output Total 1310 1760 225 Balance -718 -1760 -225 Weight 76.7 kg Intake: Oral 592 Output: Chest Tube Drainage 40 Chest Tube Right Lateral 40 Chest Drainage 10 Right Medial Chest 10 Urine 1270 1750 225 Straight 820 Uretheral (Kern) 400 225 Other: Voiding Method Toilet Indwelling Catheter Indwelling Catheter - Exam CONSTITUTIONAL: Appears comfortable, cooperative, no acute distress RESPIRATORY: Lungs sounds diminished bilaterally. Respirations even, nonlabo red. Currently on room air with oxygen saturation 95%. Able to achieve 2500 mL on incentive spirometry. Strong cough. CARDIOVASCULAR: S1, S2 present. Regular rate and rhythm, sinus rhythm on te lemetry. Palpable peripheral pulses bilaterally. No edema present. No calf pain or tenderness noted. SCDs present. GASTROINTESTINAL: Abdomen soft, nontender, nondistended. Active bowel sounds present 4 quadrants. Tolerating minimal diet. Positive bowel movement 6/5 although not documented in [employer] GENITOURINARY: Kern present draining clear, yellow urine, output 650 mL in the last 24 hours INTEGUMENTARY: Skin is warm and dry with evidence of good perfusion. Thoracic incision well approximated and covered with dry intact dressing. NEUROLOGIC: Cranial nerves II through XII intact MUSKULOSKELETAL: Able to move all extremities, strength equal bilaterally, gait normal PSYCHIATRIC: Alert and oriented to person place and time, appropriate affect, intact judgment and insight INVASIVE LINES AND TUBES: Right pleural chest tubes present to waterseal, intermittent airleak present with coughing, minimal serosanguineous drainage in the last 24 hours - Labs CBC & Chem 7: 04/27/25 07:27 04/27/25 07:27 Labs: Abnormal Lab Results - Last 24 Hours (Table) 04/26/25 04/27/25 04/27/25 Range/Units 14:48 07:27 07:27 RBC 3.55 L (4.40-5.60) 10*6/uL Hgb 11.2 L (13.0-17.0) g/dL Hct 32.8 L (39.6-50.0) % Sodium 128 L 128 L (137-145) mmol/L Chloride 96 L 95 L (98-107) mmol/L BUN 21 H 22 H (9-20) mg/dL Creatinine 0.61 L 0.62 L (0.66-1.25) mg/dL Glucose 134 H 126 H (74-99) mg/dL Assessment and Plan Plan: Stage IIIa squamous cell carcinoma of the right middle lobe. Status post induction chemotherapy, S/P right middle lobectomy with mediastinal lymph node dissection, and the patient is doing well. Chest x-ray from today was done and there is no evidence of pneumothorax. However, the patient is having some minimal intermittent airleak while being on waterseal. As such, the chest tube will be kept in place. Patient is postop day # 10 Tiny right apical pneumothorax and the patient has a right-sided chest tube in place with a Heimlich valve.., Condition is unchanged when compared to yesterday and the patient remains on room air oxygen. Chronic and ongoing tobacco dependence. Hypertension. Hyperlipidemia. Urinary retention, a Kern catheter in place and the patient is currently on Flomax Hypochloremic hyponatremia, improving sodium levels at 128 Plan: Clinically stable Right-sided chest will be attached to a Heimlich valve Pain is under adequate control Patient is on room air oxygen Kern catheter has been removed and the patient remains on Flomax Fluid restriction, sodium levels remain stable Will follow Final pathology from the right middle lobe sample revealed no evidence of any residual malignancy in the lungs and in the mediastinal lymph nodes.
--- NOTE | 2025-04-28 07:30 | XR ---
EXAMINATION TYPE: XR chest 2V DATE OF EXAM: 04/28/2025 6:20 AM COMPARISON: Multiple radiographs, with the most recent on 04/27/2025 TECHNIQUE: XR chest 2V Frontal and lateral views of the chest. CLINICAL INDICATION:Male, 74 years old with history of post op right middle lobectomy; FINDINGS: Lungs/Pleura: Unchanged trace right apical pneumothorax. Interval removal right-sided chest tube. Rig ht lung volume loss with basilar atelectasis status post right middle lobe lobectomy. Left lung is cl ear. Trace right pleural effusion. Pulmonary vascularity: Unremarkable. Heart/mediastinum: Cardiomediastinal silhouette is unremarkable. Atherosclerotic calcifications are seen in the aorta. Musculoskeletal: No acute osseous pathology. IMPRESSION: Unchanged right apical pneumothorax status post right middle lobe lobectomy. There is similar trace r ight pleural effusion with associated atelectasis. Interval removal of right chest tube. [facility], , 04/28/2025 7:28 AM
[2025-04-28 08:51] LABS: HCT 31.8 % (39.6-50.0); HGB 11.1 g/dL (13.0-17.0); MCH 32.1 pg (27.0-32.0); MCHC 34.9 g/dL (32.0-37.0); MCV 91.9 fL (80.0-97.0); Mean Platelet Volume 10.2 fL (9.5-12.2); Platelet Count 335 10*3/uL (140-440); RBC 3.46 10*6/uL (4.40-5.60); RDW 12.1 % (11.5-14.5); WBC 9.88 10*3/uL (4.50-10.00)
[2025-04-28 09:14] LABS: African American GFR (CKD) >90 (>60 ml/min/1.73 sqM); Anion Gap 7 mmol/L; Blood Urea Nitrogen 24 mg/dL (9-20); Calcium 8.2 mg/dL (8.4-10.2); Carbon Dioxide 26 mmol/L (22-30); Chloride 94 mmol/L (98-107); Glucose 141 mg/dL (74-99); Non-African American GFR(CKD) >90 (>60 ml/min/1.73 sqM); Potassium 4.5 mmol/L (3.5-5.1); Sodium 127 mmol/L (137-145)
[2025-04-28] MEDS ORDERED: TOLVAPTAN 30 MG TABLET PO ONE (10:00)
[2025-04-28 10:58] VITALS: RESP 18
[2025-04-28] MEDS: TOLVAPTAN 15 MG TABLET PO ONE (12:33)
[2025-04-28] MEDS: DEMECLOCYCLINE 150 MG TAB PO SCH (12:33)
--- NOTE | 2025-04-28 14:51 | P.PN ---
Subjective Patient is seen for follow-up for hyponatremia. Maintained on sodium chloride tabs and received Samsca, Sodium has improved to 128, it is 127 today Did admit to drinking fluids early this morning due to severe dry mouth No significant complaints. Patient wants to go home Objective - Vital Signs Vital signs: Vital Signs Temp 99.6 F 04/28/25 14:30 Pulse 114 H 04/28/25 12:00 Resp 18 04/28/25 12:00 BP 106/73 04/28/25 12:00 Pulse Ox 94 L 04/28/25 12:00 FiO2 21 04/18/25 11:30 Intake & Output 04/27/25 04/28/25 04/28/25 18:59 06:59 18:59 Intake Total 620 270 240 Output Total 850 400 0 Balance -230 -130 240 Weight 75.9 kg Intake: Oral 620 270 240 Output: Urine 850 400 Uretheral (Kern) 225 Stool 0 Other: Voiding Method Indwelling Catheter Indwelling Catheter Indwelling Catheter # Bowel Movements 1 - Exam Patient is awake, comfortable, no acute distress Examination of the heart S1 and S2 Examination of the lungs bilateral breath sounds are heard Abdomen is soft nontender Examination lower extremities shows no significant edema PLAN REP exam grossly intact - Labs CBC & Chem 7: 04/28/25 08:13 04/28/25 08:13 Labs: Abnormal Lab Results - Last 24 Hours (Table) 04/28/25 04/28/25 Range/Units 08:13 08:13 RBC 3.46 L (4.40-5.60) 10*6/uL Hgb 11.1 L (13.0-17.0) g/dL Hct 31.8 L (39.6-50.0) % MCH 32.1 H (27.0-32.0) pg Sodium 127 L (137-145) mmol/L Chloride 94 L (98-107) mmol/L BUN 24 H (9-20) mg/dL Glucose 141 H (74-99) mg/dL Calcium 8.2 L (8.4-10.2) mg/dL Assessment and Plan Assessment: 1. Hyponatremia, euvolemic. Sodium improved with sodium chloride tabs. Status post Samsca x3, sodium decreased to 127 today possibly related to increased fluid intake earlier this morning. Urine osmolality 659 with urine sodium of 120 suggesting underlying SIADH. Maintained on fluid restriction. 2. Stage IIIa squamous cell carcinoma right middle lobe status post middle lobectomy 3. Hypertension maintained on lisinopril 4. Urine retention with history of BPH currently with indwelling Kern catheter which was reinserted. Patient is maintained on Flomax. Plan: Continue with sodium chloride tabs Repeat Samsca again today, higher dose Continue with fluid restriction decreased to 1000 mL for 24 hours Encouraged increased oral intake particularly protein.
--- NOTE | 2025-04-28 16:05 | P.DS ---
Providers Date of admission: 04/17/25 05:34 Expected date of discharge: 04/28/25 Attending physician: Ruben Garcia Consults: 04/17/25 13:32 Consult Physician Routine Consulting Provider: Eric Darden Consult Reason/Comments: Pulmonary management post right middle lobectomy Do you want consulting provider notified?: Yes 04/21/25 14:29 Consult Physician Routine Consulting Provider: Jack Martin Consult Reason/Comments: urinary retention Do you want consulting provider notified?: Yes 04/24/25 07:56 Consult Physician Routine Consulting Provider: Lele Gil Consult Reason/Comments: hyponatremia after lobectomy Do you want consulting provider notified?: Yes [facility]: FINAL DIAGNOSIS: 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 Robotic assisted thoracoscopic right middle lobectomy with mediastinal lymph node dissection HISTORY OF PRESENT ILLNESS: This is a 74-year-old gentleman who follows on an outpatient basis with Dr. Ratliff for his primary care and with Dr. Darden for his pulmonary care. He had recently been diagnosed with lung cancer, squamous cell of the right middle lobe, in which the mass measured 4 x 3.7 cm. He subsequently underwent a robotic bronchoscopy and EBUS which revealed his subcarinal nodes to be positive. The patient was staged at 3A and was started on chemotherapy in November 2024. He completed his chemotherapy in mid February with the last dose being on March 04. The patient underwent a repeat PET scan which demonstrated complete response with no uptake in the subcarinal region and minimal uptake in the lung with complete resolution of previously observed lung mass. There was also no evidence of distant metastasis. Subsequently, the patient met with Dr. Ruben Garcia in consultation, treatment options discussed including right middle lobectomy. Indications for the procedures and risks versus benefits with possible complications were outlined by Dr. Garcia with the patient. Knowing and understanding the risks the patient wished to proceed with the surgical option. HOSPITAL COURSE: The patient was brought to the hospital on 04/17/25, taken to the preoperative area, prepared in the usual fashion, and subsequently taken to the operating room where Dr. Ruben Garcia performed robotic assisted thoracoscopy right middle lobectomy with mediastinal lymph node dissection. Upon completion of surgery the patient was extubated and taken to the recovery room. He was eventually admitted to 3 S. cardiac stepdown unit for further monitoring and recovery. He did have urine retention requiring placement of Kern catheter which was being managed by urology. Due to continued urine retention he will be discharged home with a Kern catheter in place and follow-up with urology as an outpatient. He continued to have a prolonged airleak and his chest tube was removed on postoperative day #10 without incident. The patient also experienced some hyponatremia which was being followed and managed by nephrology. His oxygen was titrated down, he continued to work with physical and occupational therapy, he was tolerating oral diet, his pain was controlled, and he was ready to be discharged to home on postoperative day #11. He received written and verbal instruction regarding his medications, activity restrictions, signs and symptoms requiring physician notification, and follow-up appointments. Plan - Discharge Summary Discharge Rx Participant: No New Discharge Prescriptions: New Demeclocycline [Declomycin] 300 mg PO BID #40 tab Metoprolol Tartrate [Lopressor] 50 mg PO BID #60 tab Sodium Chloride Tab 1 gm PO BID #28 tab Acetaminophen Tab [Tylenol] 650 mg PO Q4HR PRN tab PRN Reason: Mild To Moderate Pain (1 - 6) Tamsulosin [Flomax] 0.4 mg PO PC-SUPPER #30 cap lisinopriL [Zestril] 20 mg PO DAILY #30 tab Continue Rosuvastatin Calcium 5 mg PO DAILY Mv-Min/Folic/K1/Lycopen/Lutein [Centrum Silver Men Tablet] 1 each PO DAILY Aspirin [Adult Low Dose Aspirin EC] 81 mg PO DAILY Hydrocortisone [Cortef] 10 mg PO BID Discontinued Saw Carr 500 mg PO DAILY Lisinopril-Hctz 20-25 mg [Zestoretic 20-25] 1 tab PO QAM Metoprolol Tartrate [Lopressor] 100 mg PO BID Discharge Medication List Aspirin [Adult Low Dose Aspirin EC] 81 mg PO DAILY 05/31/23 [History] Mv-Min/Folic/K1/Lycopen/Lutein [Centrum Silver Men Tablet] 1 each PO DAILY 05/31/23 [History] Rosuvastatin Calcium 5 mg PO DAILY 05/31/23 [History] Hydrocortisone [Cortef] 10 mg PO BID 04/10/25 [History] Acetaminophen Tab [Tylenol] 650 mg PO Q4HR PRN tab 04/28/25 [Rx] Demeclocycline [Declomycin] 300 mg PO BID #40 tab 04/28/25 [Rx] Metoprolol Tartrate [Lopressor] 50 mg PO BID #60 tab 04/28/25 [Rx] Sodium Chloride Tab 1 gm PO BID #28 tab 04/28/25 [Rx] Tamsulosin [Flomax] 0.4 mg PO PC-SUPPER #30 cap 04/28/25 [Rx] lisinopriL [Zestril] 20 mg PO DAILY #30 tab 04/28/25 [Rx] Follow up Appointment(s)/Referral(s): Addie Pérez MD [STAFF PHYSICIAN] - 05/02/25 2:40 pm (He will be following up with Oscar the nurse practitioner) Jay Momin MD [STAFF PHYSICIAN] - As Needed Jack Martin MD [STAFF PHYSICIAN] - 2 Weeks (For cystoscopy, spoke with Paulette in Dr. Martin's office someone for the office will call with a follow-up appointment.) Ruben Garcia MD [STAFF PHYSICIAN] - 05/01/25 11:00 am Melva Simms MD [Primary Care Provider] - As Needed Eric Darden MD [STAFF PHYSICIAN] - 05/05/25 10:00 am Ambulatory/Diagnostic Orders: Basic Metabolic Panel [LAB.AMB] Time Frame: 05/05/25, Facility: [facility], Location: [facility] Activity/Diet/Wound Care/Special Instructions: DISCHARGE INSTRUCTIONS: 1. No driving for 2 weeks, or until physician gives their ok. 2. No lifting, pushing, or pulling more than 10 pounds for 2 weeks. The physician will advise of any restriction changes. 3. Continue pain control per as needed orders. Alternate acetaminophen (Tylenol) and ibuprofen (Motrin/Advil) for pain. 4. Continue with incentive spirometry and splinting until otherwise directed by the physician. 5. Leave chest tube dressing for 48 hours. After that, remove all dressings and shower daily. 6. Routine incision care. No powders, lotions, ointments on incisions. 7. Please call surgeon/[facility] for temp greater than 101 F or purulent drainage from incisions. 8. Smoking cessation counseling and program information provided. Quitting smoking is the most important step you can take to improve your health. For additional information and assistance to quit smoking, please call the [place] tobacco quit line (5-732-QUIE-NOW/ ) or online: [email or web address].gov/[email or web address]-[email or web address]-qu it-[email or web address] Discharge Disposition: HOME SELF-CARE
[2025-04-28] MEDS: SODIUM CHLORIDE 0.9% 500 ML 500 ML IV ONE (16:30)
--- NOTE | 2025-04-28 16:38 | P.PN ---
Subjective Progress Note Date: 04/28/25 Principal diagnosis: POD #11 robotic assisted thoracoscopic right middle lobectomy with mediastinal lymph node dissection This is a very pleasant 74-year-old male patient who was diagnosed with 3A squamous cell carcinoma of the right middle lobe back in September 2024. He completed induction chemotherapy and his last chemotherapy was March 04, 2025. A repeat PET scan demonstrated complete response with no uptake in the subcarinal region and immediate minimal uptake in the lung with complete resolution of the previously observed lung mass. The patient still elected to undergo a right middle lobectomy to complete the staging and minimize the risk of recurrence. He was brought in electively today and did indeed undergo a robotic assisted right middle lobectomy with mediastinal lymph node dissection with Dr. Garcia. He is seen in consultation on the selective care unit. He is currently resting fairly comfortably in bed. Awake and alert in no acute distress. Right sided chest tube remains in place to Pleur-evac and low continuous wall suction at -20 cm of water. There is a positive bubbling leak present. Chest x-ray reveals right thoracotomy tube in place with no evidence of significant pneumothorax. He is maintaining O2 saturations up to 100% on 2 L/min per nasal cannula. He has been afebrile. Hemodynamically stable. Progress note dated April 18, 2025. 74-year-old male who was seen yesterday in consultation. Please see my note above. He is postoperative day #1, status post right middle lobectomy. The patient seems to be doing relatively well. He seen today in room 354. He is on room air. No IV fluids. He does have a small leak from the right sided chest tube. Current laboratory data includes a white count of 1.9, hemoglobin 11.2, hematocrit 32.7, and platelet count 194,000. Sodium 130, potassium 4.4, chloride 96, CO2 30, BUN 25, creatinine 0.81. Glucose is 119. Calcium is 8.3. Chest x-ray shows a right-sided chest tube, no pneumothorax. Progress note dated April 19, 2025. 74-year-old male seen today in room 354. He is sitting in the chair next to the hospital bed. He is resting comfortably. He is awake and alert. No respiratory distress. Right chest tube remains in. There is a small leak. He is on room air. He is not receiving any IV fluids. Current laboratory data includes a white count 7.1, hemoglobin 1.6, hematocrit 34.9, and a normal platelet count. Sodium 135, potassium 3.3, chlorides 99, CO2 27, BUN 25, creatinine 0.71. Glucose 115. Calcium 8.5. Chest x-ray shows a stable right- sided chest tube, without obvious pneumothorax. Progress note dated April 20, 2025. 74-year-old male seen today in room 354. The patient is sitting in the chair next to the hospital bed. He is on room air. He is not receiving any IV fluids. His chest tube remains in place. He continues with a leak. Clinically , he is doing well. He denies any chest pain or chest discomfort. He is not having any shortness of breath. Current labs include a white count 7.3, hemoglobin 9.3, hematocrit 33.1, and a platelet count of 198,000. Sodium 134, potassium 4.3, chlorides 100, CO2 28, BUN 31, creatinine 1.13. Glucose is 100. Calcium is 9.1. Chest x-ray is largely unchanged. There are some right basilar atelectasis. The right chest tube remains in place. No pneumothorax is seen 04/21/2025, the patient is resting comfortably in bed. No significant respiratory distress. The patient is doing well post his right middle lobectomy mediastinal lymph node dissection the patient is currently postop day #4. Using incentive spirometer. Pulling more than 1500 on his I-S. Right-sided chest tube still in place and is/to waterseal. Repeat chest x-ray from this morning shows no clear evidence of pneumothorax. Output from the chest tube is minimal. On a separate note, the patient has developed urinary retention and the patient will have a Kern catheter inserted. The bedside because of 4.4 with a hemoglo bin of 10 and platelet count of 179. BUN 26 and a creatinine of 0.7. Sodium is at 131 and a potassium level is at 3.3. No other significant events overnight. The patient is currently on room air oxygen. 62,025, the patient is being seen for a follow-up. The patient is sitting up in a chair and the patient is calm and comfortable. Right-sided chest tube remains in place. There are some intermittent airleak as noted in the Pleur-evac. No significant respiratory distress. No significant chest pain. Hemodynamically stable. Repeat chest x-ray from today shows no evidence of any pneumothorax. However, based on the present of some limited air leak, we decided to keep the chest tube in place for now. Case was discussed with cardiothoracic surgery. Meanwhile, the patient has a Kern catheter in place. The white cell count is 5.2 with a hemoglobin 10.3 and a platelet count of 2 1. BUN 21 with a creatinine of 0.7. Sodium levels at 129 and a potassium level is at 4.5. He is currently on Flomax 0.4 mg once a day. Rest of the home medications will be resumed. He is postop day #5. On on 04/23/2025, the patient's chest x-ray shows a small right apical pneumothorax and the patient continues to have intermittent airleak as noted on in his chest tube Pleur-evac. He is using incentive spirometer. Denies having any significant chest pain or shortness of breath. He remains on room air oxygen. He remains on DuoNeb and he remains on a combination performance of Pulmicort nebulized treatments twice a day. Kern catheter remains in place and the patient is currently on Flomax. The white cell count is at 5.1 with a hemoglobin of 10 and platelet count of 204. Sodium level is 127, and the patient is receiving fluid restriction and the BUN is 14 with a creatinine of 0.6. No other significant events overnight. Patient is postop day #6 following a right middle lobe lobectomy. 04/24/2025, the patient is being seen for a follow-up. No new complaints. The patient is calm and comfortable. He continues to have intermittent airleak to the right side of chest tube which is attached to waterseal. The patient has no chest pain. The chest x-ray from today shows no evidence of any pneumothorax. However, there is some ongoing electrolyte disturbance as the patient's sodium level is currently 124 with a BUN of 15 and a creatinine of 0.65. Chloride level is at 88. The white cell count is 6 with a hemoglobin 10.7 and a platelet count of 224. The patient was seen by nephrology regarding hyponatremia. The patient was started on sodium tablets. Patient is being considered for Samsca if no improvement in the sodium level. Otherwise, no new complaints for now.On a separate note, the patient's right middle lobe sample that was obtained surgically showed no evidence of malignancy. Mediastinal lymph nodes were also negative. On 04/25/2025, the patient is being seen for a follow-up with the patient remains on room air oxygen. He has no specific complaints. Repeat chest x-ray from today showing a small right apical pneumothorax. On today's evaluation, the pa tient is right-sided chest tube is in place and there is some ongoing intermittent mild amount of airleak with coughing. Otherwise, the output from the chest tube is minimal. The patient remains in normal sinus rhythm. The patient's Kern catheter has been removed and the patient remains on Flomax. He remains on fluid restriction and sodium levels currently at 126 and a potassium is at 4. BUN is 16 with a creatinine 0.5. The white cell count is 5.8 with a hemoglobin of 10.3. No other complaints otherwise for now. On 04/26/2025, the patient is being seen for a follow-up. Chest x-ray shows no evidence of pneumothorax. Minimal intermittent leak in the chest tube is noted. Sodium is at 127, BUN is 18 with a creatinine of 0.6. The patient remains on room air oxygen. No specific complaints. 04/27/2025, the patient is being seen for a follow-up. The patient has doing well. No specific complaints. He continues to have urinary retention and a Kern catheter was reinserted. The Heimlich valve was attached to the right- sided chest tube. The patient has no significant respiratory distress. Chest x-ray shows a very tiny right apical pneumothorax. The sodium level is at 128, potassium is at 4, chloride is 95 with a bicarb of 26, BUN is 22 and the creatinine is at 0.6. The white cell count is 7.04 with a hemoglobin of 11.2 and a platelet count of 311. No other significant events overnight. Director Medical Writing on the case. CT surgery is also on the case. Seen today on 04/28/2025, patient is doing very well, relatively asymptomatic, has a tiny right apical pneumothorax, chest tube has been removed, patient is being discharged home today, and he will follow-up with us on outpatient basis. Normally sees Dr. Darden. WBC count is 9.8 hemoglobin 11.1 calcium 8.2 Objective - Vital Signs Vital signs: Vital Signs Temp 99.6 F 04/28/25 14:30 Pulse 114 H 04/28/25 14:00 Resp 18 04/28/25 14:00 BP 106/73 04/28/25 12:00 Pulse Ox 94 L 04/28/25 12:00 FiO2 21 04/18/25 11:30 Intake & Output 04/27/25 04/28/25 04/28/25 18:59 06:59 18:59 Intake Total 620 270 240 Output Total 850 400 0 Balance -230 -130 240 Weight 75.9 kg Intake: Oral 620 270 240 Output: Urine 850 400 Uretheral (Kern) 225 Stool 0 Other: Voiding Method Indwelling Catheter Indwelling Catheter Indwelling Catheter # Bowel Movements 1 - Exam General: The patient is awake and alert, in no distress, and does not appear acutely ill. Skin: Skin is warm and dry and no rashes or lesions are noted. Eye: Pupils are equal, round and reactive to light, extra-ocular movements are intact; there is normal conjunctiva bilaterally. Ears, nose, mouth and throat: There are moist mucous membranes and no oral lesions. Neck: The neck is supple, there is no tenderness or JVD. Cardiovascular: There is a regular rate and rhythm. No murmur, rub or gallop is appreciated. Respiratory: Clear bilaterally no rhonchi no wheezes Gastrointestinal: Soft, non-distended, non-tender abdomen without masses or organomegaly noted. There is no rebound or guarding present. Bowel sounds are unremarkable. Back: There is no tenderness to palpation in the midline. There is no obvious deformity. Musculoskeletal: Normal ROM, no tenderness, There is no pedal edema. There is no calf tenderness or swelling. No cords were appreciated. Neurological: CN II-XII intact, Cranial nerves III through XII are intact. There are no obvious motor or sensory deficits. Coordination appears grossly intact. Speech is normal. Psychiatric: Cooperative, appropriate mood & affect, normal judgment. - Labs CBC & Chem 7: 04/28/25 08:13 04/28/25 08:13 Labs: Abnormal Lab Results - Last 24 Hours (Table) 04/28/25 04/28/25 Range/Units 08:13 08:13 RBC 3.46 L (4.40-5.60) 10*6/uL Hgb 11.1 L (13.0-17.0) g/dL Hct 31.8 L (39.6-50.0) % MCH 32.1 H (27.0-32.0) pg Sodium 127 L (137-145) mmol/L Chloride 94 L (98-107) mmol/L BUN 24 H (9-20) mg/dL Glucose 141 H (74-99) mg/dL Calcium 8.2 L (8.4-10.2) mg/dL Assessment and Plan Assessment: Impression Stage IIIa squamous cell carcinoma of the right middle lobe. Status post induction chemotherapy, S/P right middle lobectomy with mediastinal lymph node dissection, and the patient is doing well. Chest x-ray from today was done and there is no evidence of pneumothorax. However, the patient is having some minimal intermittent airleak while being on waterseal. As such, the chest tube will be kept in place. Patient is postop day #11 Tiny right apical pneumothorax and the patient has a right-sided chest tube removed Chronic and ongoing tobacco dependence. Hypertension. Hyperlipidemia. Hypochloremic hyponatremia, improving sodium levels at 128 Recommendation: Agree with discharge planning, continue incentive spirometry, follow-up with Dr. Darden as scheduled Time with Patient: Less than 30
--- NOTE | 2025-04-28 16:49 | XR ---
EXAMINATION TYPE: XR chest 1V portable DATE OF EXAM: 04/28/2025 4:35 PM COMPARISON: None. CLINICAL INDICATION: Male, 74 years old with history of pneumothorax, TECHNIQUE: XR chest 1V portable view(s) obtained. FINDINGS: The heart size is normal. The pulmonary vasculature is normal. Right lower lobe infiltrate is present. Minimal right pleural effusion is present. Minimal right apic al pneumothorax remains present.. IMPRESSION: 1. Stable right minimal apical pneumothorax. 2. Right lower lobe infiltrate with small right pleural effusion [facility], , 04/28/2025 4:46 PM
[2025-04-28 18:22] VITALS: BP 82/58; PULSE 112; TEMP 100
[2025-04-28] MEDS ORDERED: HYDROCORTISONE 10 MG TAB PO SCH (21:00)
== END 2025-04-28 18:24 | disposition home or self-care (01) | DRG 164 ==
LOC: 2ORMAIN 05:34 → 3SCARD 12:18
PROVIDERS: ADMIT Thoracic Surgery (Cardiothoracic Vascular Surgery); ATTEND Thoracic Surgery (Cardiothoracic Vascular Surgery)
PROC: 07B74ZX Excision of Thorax Lymphatic, Percutaneous Endoscopic Approach, Diagnostic (ICD-10-PCS; 2025-04-17)
PROC: 8E0W4CZ Robotic Assisted Procedure of Trunk Region, Percutaneous Endoscopic Approach (ICD-10-PCS; 2025-04-17)
PROC: 0BTD4ZZ Resection of Right Middle Lung Lobe, Percutaneous Endoscopic Approach (ICD-10-PCS; principal; 2025-04-17 07:30)
DX: C34.2 Malignant neoplasm of middle lobe, bronchus or lung (principal); E87.1 Hypo-osmolality and hyponatremia; I10 Essential (primary) hypertension; E78.5 Hyperlipidemia, unspecified; E87.8 Other disorders of electrolyte and fluid balance, not elsewhere classified; N40.1 Benign prostatic hyperplasia with lower urinary tract symptoms; N47.1 Phimosis; R33.8 Other retention of urine; Z87.891 Personal history of nicotine dependence; Z79.82 Long term (current) use of aspirin; Z79.899 Other long term (current) drug therapy; Z92.21 Personal history of antineoplastic chemotherapy; Z80.1 Family history of malignant neoplasm of trachea, bronchus and lung
CPT/HCPCS: 64466; 71045; 71046; 80048; 81001; 83605; 83935; 84295; 84300; 85025; 85027; 87077; 87086; 87186; 88305; 88309; 94640; 94760

== ENCOUNTER → 2025-04-30 | Outpatient (CLI) | payer MEDICARE ==
[2025-04-30 16:27] LABS: BUN/Creat Ratio 27.86 Ratio (12.00-20.00); Blood Urea Nitrogen 19.5 mg/dL (9.0-27.0); Carbon Dioxide 22.8 mmol/L (21.6-31.8); Chloride 98 mmol/L (96-109); Glucose 118 mg/dL (70-110); Potassium 4.8 mmol/L (3.5-5.5); Sodium 133 mmol/L (135-145)
[2025-04-30 16:28] LABS: Calcium 7.9 mg/dL (8.7-10.3)
== END | disposition home or self-care (01) ==
LOC: LABWHC1 08:31
PROVIDERS: ATTEND Nurse Practitioner Family
DX: E87.1 Hypo-osmolality and hyponatremia (principal)
CPT/HCPCS: 36415; 80048

== ENCOUNTER → 2025-05-01 | Outpatient (CLI) | payer MEDICARE ==
--- NOTE | 2025-05-01 12:37 | XR ---
EXAMINATION TYPE: XR chest 2V DATE OF EXAM: 05/01/2025 12:32 PM COMPARISON: 04/28/2025 CLINICAL INDICATION: Male, 74 years old with history of R06.02 SOB, TECHNIQUE: XR chest 2V view(s) obtained. FINDINGS: The heart size is normal. The pulmonary vasculature is normal. The lungs are clear. There is a small right apical pneumothorax. This is slightly greater than prior . Small right pleural effusion is present IMPRESSION: 1. Mild increase of small right apical pneumothorax. 2. Small right pleural effusion [facility], , 05/01/2025 12:35 PM
== END | disposition home or self-care (01) ==
LOC: RADXRMAIN 12:06
PROVIDERS: ATTEND Thoracic Surgery (Cardiothoracic Vascular Surgery)
DX: J90 Pleural effusion, not elsewhere classified (principal); J93.9 Pneumothorax, unspecified
CPT/HCPCS: 71046

== ENCOUNTER → 2025-05-05 | Outpatient (CLI) | payer MEDICARE ==
[2025-05-05 16:30] LABS: BUN/Creat Ratio 31.43 Ratio (12.00-20.00); Calcium 8.3 mg/dL (8.7-10.3); Carbon Dioxide 23.6 mmol/L (21.6-31.8); Chloride 106 mmol/L (96-109); Glucose 120 mg/dL (70-110); Sodium 140 mmol/L (135-145)
== END | disposition home or self-care (01) ==
LOC: LABWHC1 11:07
PROVIDERS: ATTEND Nurse Practitioner Family
DX: E87.1 Hypo-osmolality and hyponatremia (principal)
CPT/HCPCS: 36415; 80048

== ENCOUNTER → 2025-05-06 | Outpatient (CLI) | payer MEDICARE ==
[2025-05-06 10:31] LABS: BUN/Creat Ratio 33.67 Ratio (12.00-20.00); Blood Urea Nitrogen 20.2 mg/dL (9.0-27.0); Calcium 8.5 mg/dL (8.7-10.3); Carbon Dioxide 22.1 mmol/L (21.6-31.8); Chloride 106 mmol/L (96-109); Glucose 103 mg/dL (70-110); Potassium 4.5 mmol/L (3.5-5.5); Sodium 140 mmol/L (135-145)
== END | disposition home or self-care (01) ==
LOC: LABWHC1 06:58
PROVIDERS: ATTEND Nurse Practitioner Acute Care
DX: E87.1 Hypo-osmolality and hyponatremia (principal)
CPT/HCPCS: 36415; 80048; 83930; 83935; 84300